=== PATIENT | male | born 1945 ===

== ENCOUNTER 2021-06-12 17:45 | Inpatient (IN) | payer MEDICARE ==
[2021-06-13 01:16] LABS: Hepatitis B Surface Antigen Non-Reactive (Negative); Hepatitis C Virus Antibody Non-Reactive (NonReactive)
[2021-06-13 01:34] LABS: Basophils % (Auto) 0.5 % (0.0-1.8); Eosinophils # (Auto) 0.1 K/mm3 (0.0-0.4); Eosinophils % (Auto) 1.4 % (0.0-4.3); Hematocrit 30.3 % (35.5-45.6); Hemoglobin 9.8 gm/dl (11.8-15.2); Lymphocytes # (Auto) 1.2 K/mm3 (1.2-5.4); Lymphocytes % (Auto) 27.4 % (13.4-35.0); Mean Corpuscular HGB Conc 32 % (32-34); Mean Corpuscular Volume 98 fl (84-94); Monocytes # (Auto) 0.4 K/mm3 (0.0-0.8); Monocytes % (Auto) 9.4 % (0.0-7.3); Platelet Count 269 K/mm3 (140-440); Red Blood Count 3.08 M/mm3 (3.65-5.03); Red Cell Distribution Width 16.4 % (13.2-15.2)
[2021-06-13 01:41] LABS: Alanine Aminotransferase 29 units/L (7-56); Albumin 3.4 g/dL (3.9-5); Blood Urea Nitrogen 22 mg/dL (9-20); Calcium 8.6 mg/dL (8.4-10.2); Hemolysis Index 2
[2021-06-13 01:59] LABS: BUN/Creatinine Ratio 31
[2021-06-13 03:55] LABS: Chol/HDL Ratio 2.52 %; HDL Cholesterol 65 mg/dL (40-59); LDL Cholesterol,Direct 93 mg/dL (50-130)
--- NOTE | 2021-06-13 09:01 | Consultation ---
History of Present Illness - Reason for Consult Consult date: 06/13/21 anemia Requesting physician: YUNIOR SALINAS - History of Present Illness Patient is a 76-year-old male with history of dementia unspecified, CAD status post CABG x4, essential hypertension, insomnia currently admitted to the [facility] unit for increased agitation and combativeness was referred by his family as confused with poor insight patient rambling with flight of ideas and difficult to redirect. He was noted to have anemia on admission and were requested to evaluate for further management. Earlier this year was noted to have HILLARY which has since resolved. Past History Past Medical History: CAD, hypertension, hyperlipidemia Past Surgical History: CABG (X4) Social history: lives with family, full code Family history: cancer (PROSTATE AND COLON, ALSO BREAST) Medications and Allergies Allergies Allergy/AdvReac Type Severity Reaction Status Date / Time morphine Allergy Unknown Verified 06/12/21 22:36 Home Medications Medication Instructions Recorded Confirmed Last Taken Type Aspirin EC [Halfprin EC] 81 mg PO QDAY 06/12/21 06/12/21 Unknown History Cholecalciferol Vit D3 [Vitamin D3 4,000 unit PO QDAY 06/12/21 06/12/21 Unknown History 1,000 UNIT TAB] Clopidogrel [Plavix] 75 mg PO QDAY 06/12/21 06/12/21 Unknown History Memantine [Namenda] 5 mg PO BID 06/12/21 06/12/21 Unknown History Mirtazapine [Remeron] 15 mg PO HS 06/12/21 06/12/21 Unknown History QUEtiapine [SEROquel] 100 mg PO HS 06/12/21 06/12/21 Unknown History Quetiapine Fumarate [SEROquel] 50 mg PO QDAY 06/12/21 06/12/21 Unknown History donepeziL [Aricept] 10 mg PO HS 06/12/21 06/12/21 Unknown History Review of Systems All systems: negative Psychiatric: insomnia, disorientation, confusion Exam - Physical Exam Narrative exam: VITAL SIGNS: Reviewed. GENERAL: The patient appears normally developed, Vital signs as documented. HEAD: No signs of head trauma. EYES: Pupils are equal. Extraocular motions intact. EARS: Hearing grossly intact. MOUTH: Oropharynx is normal. NECK: No adenopathy, no JVD. CHEST: Chest with clear breath sounds bilaterally. No wheezes, rales, or rhonchi. CARDIAC: Regular rate and rhythm. S1 and S2, without murmurs, gallops, or rubs. VASCULAR: No Edema. Peripheral pulses normal and equal in all extremities. ABDOMEN: Soft, non tender and non distended. No rebound or guarding, and no masses palpated. Bowel Sounds normal. MUSCULOSKELETAL: Good range of motion of all major joints. Extremities without clubbing, cyanosis or edema. NEUROLOGIC EXAM: Alert and oriented x 1 No focal sensory or strength deficits. Speech normal but pressured. Follows some commands. PSYCHIATRIC: Mood elevated with Tangectile thought process and vocalization. SKIN: detail exam as documented in skin assessment - Constitutional Vitals: Temp Pulse Resp BP Pulse Ox 97.7 F 63 20 125/65 97 06/12/21 21:04 06/12/21 21:04 06/12/21 21:04 06/12/21 21:04 06/12/21 21:04 Results - Labs CBC & Chem 7: 06/12/21 23:42 06/12/21 23:42 Labs: Abnormal lab results 06/12/21 06/12/21 Range/Units 23:42 23:42 RBC 3.08 L (3.65-5.03) M/mm3 Hgb 9.8 L (11.8-15.2) gm/dl Hct 30.3 L (35.5-45.6) % MCV 98 H (84-94) fl RDW 16.4 H (13.2-15.2) % [place] % (Auto) 9.4 H (0.0-7.3) % BUN 22 H (9-20) mg/dL Creatinine 0.7 L (0.8-1.3) mg/dL Albumin 3.4 L (3.9-5) g/dL HDL Cholesterol 65 H (40-59) mg/dL Assessment and Plan Patient is a 76-year-old male with history of dementia unspecified, CAD status post CABG x4, essential hypertension, insomnia currently admitted to the [facility] unit for increased agitation and combativeness was referred by his family as confused with poor insight patient rambling with flight of ideas and difficult to redirect. He was noted to have anemia on admission and were requested to evaluate for further management. Earlier this year was noted to have HILLARY which has since resolved. On admission he denies any chest pain nausea vomiting or diarrhea he denies any black tarry stools. He also earlier this year tested positive for COVID-19 but is not at this time requiring any oxygenation. I am not aware of what ever treatment was provided for him at the time. Labs done in April shows a mildly elevated proBNP with score of 804.5 Dementia with behavioral disorder Anemia likely of chronic disease CAD status post CABG Hypertension Insomnia Recent diagnosis of COVID-19 currently not symptomatic Plan Continue supportive care. Patient is on aspirin and Plavix secondary to history of CAD we will continue to monitor hemoglobin intermittently during hospitalization. Monitor for any GI bleed evidenced by gross bleed or black tarry stool. Continue appropriate home medications Behavioral disturbance management per psych Thank you for letting us take part in the care of your patient will follow intermittently while patient is here.
--- NOTE | 2021-06-13 10:25 | History and Physical Report ---
GP History & Physical - History of Present Illness Date of admission: 06/12/21 Date of Examination: 06/13/21 Reason for Admission: Failure of Outpatient Treatment, Severe anxiety/depression, Unable to care for self History of Present Illness: The patient was seen today. He was admitted to [facility] for increase in agitation and combativeness. During my evaluation the patient is confused. He has poor insight. He is pacing and rambling. He is having flight of ideas. He is difficult to redirect. He is talking about the nurse who just left the room. He then says "I want to you, can you write your name on this paper." He says he lives with three other people. The patient then starts talking about people who have been down on the corner earlier. PAST PSYCHIATRIC HISTORY: unable to assess PAST MEDICAL HISTORY: unable to assess Family Psychiatric History: None reported or documented SOCIAL HISTORY Unable to assess REVIEW OF SYSTEMS Constitutional: Negative for weight loss ENT: Negative for stridor Respiratory: Negative for cough or hemoptysis All other systems reviewed and are negative MENTAL STATUS EXAMINATION Unable to assess Assessment (1)Dementia with Behavioral Disturbance Current Visit: Yes Status: Acute Treatment Plan Patient admitted for inpatient psychiatric evaluation, medication adjustment and close monitoring The patient's behavior, mood, sleep and appetite will be closely monitored. Patient enrolled in individual and group therapeutic sessions and encouraged to attend. Patient provided with a safe and structured environment. Patient's physical health needs will be addressed by the Hospitalist. Hospitalist Consulted Labs including CBC, CMP, Lipid profile and Hemoglobin A1C levels ordered for baseline reference Social Assessment will be completed and the Java Manager will work with patient and family to ensure a suitable and safe disposition Medication adjustment will be made as clinically indicated Start Klonopin 0.25mg po BID Start Geodon 10mg IM q6h agitation Restarted home meds Usual Wellness Congregational/Preservation: - Start Trazodone 50 mg po QHS & 50 mg po QHS PRN between 10 PM & 2 AM for insomnia - Start Melatonin 5 mg po QHS to promote circadian rhythm The patient agreed on the treatment plan, understood the risk, benefit, alternative treatment, potential consequence of no treatment, and gave informed consent. Estimated days: 7 Post hospital care: primary care provider, psychiatric provider Case staffed with Dr. Carrion Legal Status: Voluntary Reaction to Hospitalization: Accepting Medications and Allergies Allergies Allergy/AdvReac Type Severity Reaction Status Date / Time morphine Allergy Unknown Verified 06/12/21 22:36 Home Medications Medication Instructions Recorded Confirmed Last Taken Type Aspirin EC [Halfprin EC] 81 mg PO QDAY 06/12/21 06/12/21 Unknown History Cholecalciferol Vit D3 [Vitamin D3 4,000 unit PO QDAY 06/12/21 06/12/21 Unknown History 1,000 UNIT TAB] Clopidogrel [Plavix] 75 mg PO QDAY 06/12/21 06/12/21 Unknown History Memantine [Namenda] 5 mg PO BID 06/12/21 06/12/21 Unknown History Mirtazapine [Remeron] 15 mg PO HS 06/12/21 06/12/21 Unknown History QUEtiapine [SEROquel] 100 mg PO HS 06/12/21 06/12/21 Unknown History Quetiapine Fumarate [SEROquel] 50 mg PO QDAY 06/12/21 06/12/21 Unknown History donepeziL [Aricept] 10 mg PO HS 06/12/21 06/12/21 Unknown History Active Meds: Active Medications Aspirin (Aspirin Ec 81 Mg Tab) 81 mg PO QDAY [facility] Cholecalciferol (Cholecalciferol (Vit D3) 1000 Unit (25 Mcg) Tab) 4,000 unit PO QDAY [facility] Clonazepam (Clonazepam 0.5 Mg Tab) 0.25 mg PO BID [facility] Clopidogrel Bisulfate (Clopidogrel 75 Mg Tab) 75 mg PO QDAY [facility] Donepezil HCl (Donepezil 10 Mg Tab) 10 mg PO HS [facility] Memantine (Memantine 5 Mg Tab) 5 mg PO BID [facility] Mirtazapine (Mirtazapine 15 Mg Tab) 15 mg PO HS [facility] Miscellaneous Medication (Quetiapine Fumarate [Seroquel]) 50 mg PO QDAY [facility] Quetiapine Fumarate (Quetiapine 100 Mg Tab) 100 mg PO HS [facility] Ziprasidone (Ziprasidone Mesylate 20 Mg Vial) 10 mg IM Q6H PRN PRN Reason: Agitation Results - Results Labs/Vitals: Laboratory Last Values WBC 4.6 K/mm3 (4.5-11.0) 06/12/21 23:42 RBC 3.08 M/mm3 (3.65-5.03) L 06/12/21 23:42 Hgb 9.8 gm/dl (11.8-15.2) L 06/12/21 23:42 Hct 30.3 % (35.5-45.6) L 06/12/21 23:42 MCV 98 fl (84-94) H 06/12/21 23:42 MCH 32 pg (28-32) 06/12/21 23:42 MCHC 32 % (32-34) 06/12/21 23:42 RDW 16.4 % (13.2-15.2) H 06/12/21 23:42 Plt Count 269 K/mm3 (140-440) 06/12/21 23:42 Lymph % (Auto) 27.4 % (13.4-35.0) 06/12/21 23:42 [place] % (Auto) 9.4 % (0.0-7.3) H 06/12/21 23:42 Eos % (Auto) 1.4 % (0.0-4.3) 06/12/21 23:42 Baso % (Auto) 0.5 % (0.0-1.8) 06/12/21 23:42 Lymph # (Auto) 1.2 K/mm3 (1.2-5.4) 06/12/21 23:42 [place] # (Auto) 0.4 K/mm3 (0.0-0.8) 06/12/21 23:42 Eos # (Auto) 0.1 K/mm3 (0.0-0.4) 06/12/21 23:42 Baso # (Auto) 0.0 K/mm3 (0.0-0.1) 06/12/21 23:42 Seg Neutrophils % 61.3 % (40.0-70.0) 06/12/21 23:42 Seg Neutrophils # 2.8 K/mm3 (1.8-7.7) 06/12/21 23:42 Sodium 138 mmol/L (137-145) 06/12/21 23:42 Potassium 4.2 mmol/L (3.6-5.0) 06/12/21 23:42 Chloride 103.5 mmol/L (98-107) 06/12/21 23:42 Carbon Dioxide 27 mmol/L (22-30) 06/12/21 23:42 Anion Gap 12 mmol/L 06/12/21 23:42 BUN 22 mg/dL (9-20) H 06/12/21 23:42 Creatinine 0.7 mg/dL (0.8-1.3) L 06/12/21 23:42 Estimated GFR > 60 ml/min 06/12/21 23:42 BUN/Creatinine Ratio 31 % 06/12/21 23:42 Glucose 95 mg/dL (75-100) 06/12/21 23:42 Hemoglobin A1c 5.6 % (4-6) 06/12/21 23:42 Calcium 8.6 mg/dL (8.4-10.2) 06/12/21 23:42 Total Bilirubin 0.20 mg/dL (0.1-1.2) 06/12/21 23:42 AST 24 units/L (5-40) 06/12/21 23:42 ALT 29 units/L (7-56) 06/12/21 23:42 Alkaline Phosphatase 96 units/L (35-129) 06/12/21 23:42 Total Protein 7.5 g/dL (6.3-8.2) 06/12/21 23:42 Albumin 3.4 g/dL (3.9-5) L 06/12/21 23:42 Albumin/Globulin Ratio 0.8 % 06/12/21 23:42 Triglycerides 50 mg/dL (2-149) 06/12/21 23:42 Cholesterol 164 mg/dL (50-199) 06/12/21 23:42 LDL Cholesterol Direct 93 mg/dL (50-130) 06/12/21 23:42 HDL Cholesterol 65 mg/dL (40-59) H 06/12/21 23:42 Cholesterol/HDL Ratio 2.52 % 06/12/21 23:42 TSH 2.150 mlU/mL (0.270-4.200) 06/12/21 23:42 Hepatitis A IgM Ab Non-reactive (NonReactive) 06/12/21 23: Hep Bs Antigen Non-reactive (Negative) 06/12/21 23: Hep B Core IgM Ab Non-reactive (NonReactive) 06/12/21 23:42 Hepatitis C Antibody Non-reactive (NonReactive) 06/12/21 23:42 Last Vital Signs Temp 97.7 F 06/12/21 21:04 Pulse 63 06/12/21 21:04 Resp 20 06/12/21 21:04 BP 125/65 06/12/21 21:04 Pulse Ox 97 06/12/21 21:04 Physical Examination - Constitutional Vitals: Vital Signs Temp Pulse Resp BP Pulse Ox 97.7 F 63 20 125/65 97 06/12/21 21:04 06/12/21 21:04 06/12/21 21:04 06/12/21 21:04 06/12/21 21:04 Temperature -Last 24 Hours Temperature 97.7 F Mental Status Exam - Vital signs Last Vital Signs Temp 97.7 F 06/12/21 21:04 Pulse 63 06/12/21 21:04 Resp 20 06/12/21 21:04 BP 125/65 06/12/21 21:04 Pulse Ox 97 06/12/21 21:04 Physician Certification - Certification Statement Physician Certification Statement: This is an acknowledgement statement that MINOR ELLIOTT is a 76 year old M who requires inpatient psychiatric admission for treatment which could reasonably be expected to improve the patient's condition for Estimated period of time patient will need to remain in the hospital: [ ] Plan for post-hospital care: [ ]
[2021-06-13] MEDS ORDERED: NON-FORMULARY EACH (Quetiapine Fumarate [Seroquel] 50 MG Tablet) PO SCH (10:30)
[2021-06-13] MEDS: ASPIRIN EC 81 MG TAB PO SCH (10:39)
[2021-06-13] MEDS: CHOLECALCIFEROL (VIT D3) 1000 UNIT (25 mcg) TAB PO SCH (10:39)
[2021-06-13] MEDS: CLOPIDOGREL 75 MG TAB PO SCH (10:39)
[2021-06-13] MEDS: MEMANTINE 5 MG TAB PO SCH ×2 (10:39→21:57)
[2021-06-13] MEDS: clonazePAM 0.5 MG TAB PO SCH ×2 (11:06→21:55)
[2021-06-13] MEDS ORDERED: QUEtiapine 25 MG TAB PO SCH (12:00)
[2021-06-13] MEDS: DONEPEZIL 10 MG TAB PO SCH (21:55)
[2021-06-13] MEDS: MIRTAZAPINE 15 MG TAB PO SCH (21:57)
[2021-06-13] MEDS ORDERED: QUEtiapine 100 MG TAB PO SCH (22:00)
--- NOTE | 2021-06-14 09:33 | Progress Note ---
Subjective Date of service: 06/14/21 Principal diagnosis: Dementia with Behavioral Disturbance Subjective Comment: The patient was seen today. He is anxious, pacing and confused. He is rambling and difficult to follow. The patient is difficult to redirect. He is at times banging on the windows and doors. REVIEW OF SYSTEMS Constitutional: Negative for weight loss ENT: Negative for stridor Respiratory: Negative for cough or hemoptysis All other systems reviewed and are negative MENTAL STATUS EXAMINATION Unable to assess Assessment (1)Dementia with Behavioral Disturbance Current Visit: Yes Status: Acute Treatment Plan Patient admitted for inpatient psychiatric evaluation, medication adjustment and close monitoring The patient's behavior, mood, sleep and appetite will be closely monitored. Patient enrolled in individual and group therapeutic sessions and encouraged to attend. Patient provided with a safe and structured environment. Patient's physical health needs will be addressed by the Hospitalist. Hospitalist Consulted Labs including CBC, CMP, Lipid profile and Hemoglobin A1C levels ordered for baseline reference Social Assessment will be completed and the Sales Promotion Representative will work with patient and family to ensure a suitable and safe disposition Medication adjustment will be made as clinically indicated Start Klonopin 0.25mg po BID x 3 days yesterday Continue Geodon 10mg IM q6h agitation Increase Seroquel 100mg po BID Start Valproic acid 125mg po BID Usual Wellness Muslim/Preservation: - Start Trazodone 50 mg po QHS & 50 mg po QHS PRN between 10 PM & 2 AM for insomnia - Start Melatonin 5 mg po QHS to promote circadian rhythm The patient agreed on the treatment plan, understood the risk, benefit, alternative treatment, potential consequence of no treatment, and gave informed consent. Estimated days: 7 Post hospital care: primary care provider, psychiatric provider Case staffed with Dr. Carrion Medications and Allergies Allergies Allergy/AdvReac Type Severity Reaction Status Date / Time morphine Allergy Unknown Verified 06/12/21 22:36 Home Medications Medication Instructions Recorded Confirmed Last Taken Type Aspirin EC [Halfprin EC] 81 mg PO QDAY 06/12/21 06/12/21 Unknown History Cholecalciferol Vit D3 [Vitamin D3 4,000 unit PO QDAY 06/12/21 06/12/21 Unknown History 1,000 UNIT TAB] Clopidogrel [Plavix] 75 mg PO QDAY 06/12/21 06/12/21 Unknown History Memantine [Namenda] 5 mg PO BID 06/12/21 06/12/21 Unknown History Mirtazapine [Remeron] 15 mg PO HS 06/12/21 06/12/21 Unknown History QUEtiapine [SEROquel] 100 mg PO HS 06/12/21 06/12/21 Unknown History Quetiapine Fumarate [SEROquel] 50 mg PO QDAY 06/12/21 06/12/21 Unknown History donepeziL [Aricept] 10 mg PO HS 06/12/21 06/12/21 Unknown History Active Meds: Active Medications Aspirin (Aspirin Ec 81 Mg Tab) 81 mg PO QDAY [facility] Last Admin: 06/13/21 10:39 Dose: 81 mg Cholecalciferol (Cholecalciferol (Vit D3) 1000 Unit (25 Mcg) Tab) 4,000 unit PO QDAY [facility] Last Admin: 06/13/21 10:39 Dose: 4,000 unit Clonazepam (Clonazepam 0.5 Mg Tab) 0.25 mg PO BID [facility] Last Admin: 06/13/21 21:55 Dose: 0.25 mg Clopidogrel Bisulfate (Clopidogrel 75 Mg Tab) 75 mg PO QDAY [facility] Last Admin: 06/13/21 10:39 Dose: 75 mg Donepezil HCl (Donepezil 10 Mg Tab) 10 mg PO [facility] Last Admin: 06/13/21 21:55 Dose: 10 mg Memantine (Memantine 5 Mg Tab) 5 mg PO BID [facility] Last Admin: 06/13/21 21:57 Dose: 5 mg Mirtazapine (Mirtazapine 15 Mg Tab) 15 mg PO [facility] Last Admin: 06/13/21 21:57 Dose: 15 mg Quetiapine Fumarate (Quetiapine 100 Mg Tab) 100 mg PO [facility] Last Admin: 06/13/21 21:57 Dose: 100 mg Quetiapine Fumarate (Quetiapine 25 Mg Tab) 50 mg PO DAILY [facility] Last Admin: 06/13/21 11:09 Dose: 50 mg Ziprasidone (Ziprasidone Mesylate 20 Mg Vial) 10 mg IM Q6H PRN PRN Reason: Agitation Results - Results Labs/Vitals: Laboratory Last Values WBC 4.6 K/mm3 (4.5-11.0) 06/12/21 23:42 RBC 3.08 M/mm3 (3.65-5.03) L 06/12/21 23:42 Hgb 9.8 gm/dl (11.8-15.2) L 06/12/21 23:42 Hct 30.3 % (35.5-45.6) L 06/12/21 23:42 MCV 98 fl (84-94) H 06/12/21 23:42 MCH 32 pg (28-32) 06/12/21 23:42 MCHC 32 % (32-34) 06/12/21 23:42 RDW 16.4 % (13.2-15.2) H 06/12/21 23:42 Plt Count 269 K/mm3 (140-440) 06/12/21 23:42 Lymph % (Auto) 27.4 % (13.4-35.0) 06/12/21 23:42 [place] % (Auto) 9.4 % (0.0-7.3) H 06/12/21 23:42 Eos % (Auto) 1.4 % (0.0-4.3) 06/12/21 23: Baso % (Auto) 0.5 % (0.0-1.8) 06/12/21 23:42 Lymph # (Auto) 1.2 K/mm3 (1.2-5.4) 06/12/21 23:42 [place] # (Auto) 0.4 K/mm3 (0.0-0.8) 06/12/21 23: Eos # (Auto) 0.1 K/mm3 (0.0-0.4) 06/12/21 23: Baso # (Auto) 0.0 K/mm3 (0.0-0.1) 06/12/21 23: Seg Neutrophils % 61.3 % (40.0-70.0) 06/12/21 23: Seg Neutrophils # 2.8 K/mm3 (1.8-7.7) 06/12/21 23:42 Sodium 138 mmol/L (137-145) 06/12/21 23:42 Potassium 4.2 mmol/L (3.6-5.0) 06/12/21 23:42 Chloride 103.5 mmol/L (98-107) 06/12/21 23: Carbon Dioxide 27 mmol/L (22-30) 06/12/21 23:42 Anion Gap 12 mmol/L 06/12/21 23:42 BUN 22 mg/dL (9-20) H 06/12/21 23:42 Creatinine 0.7 mg/dL (0.8-1.3) L 06/12/21 23:42 Estimated GFR > 60 ml/min 06/12/21 23:42 BUN/Creatinine Ratio 31 % 06/12/21 23:42 Glucose 95 mg/dL (75-100) 06/12/21 23:42 Hemoglobin A1c 5.6 % (4-6) 06/12/21 23:42 Calcium 8.6 mg/dL (8.4-10.2) 06/12/21 23:42 Total Bilirubin 0.20 mg/dL (0.1-1.2) 06/12/21 23:42 AST 24 units/L (5-40) 06/12/21 23:42 ALT 29 units/L (7-56) 06/12/21 23:42 Alkaline Phosphatase 96 units/L (35-129) 06/12/21 23:42 Total Protein 7.5 g/dL (6.3-8.2) 06/12/21 23:42 Albumin 3.4 g/dL (3.9-5) L 06/12/21 23:42 Albumin/Globulin Ratio 0.8 % 06/12/21 23:42 Triglycerides 50 mg/dL (2-149) 06/12/21 23:42 Cholesterol 164 mg/dL (50-199) 06/12/21 23:42 LDL Cholesterol Direct 93 mg/dL (50-130) 06/12/21 23:42 HDL Cholesterol 65 mg/dL (40-59) H 06/12/21 23:42 Cholesterol/HDL Ratio 2.52 % 06/12/21 23:42 TSH 2.150 mlU/mL (0.270-4.200) 06/12/21 23:42 Hepatitis A IgM Ab Non-reactive (NonReactive) 06/12/21 23: Hep Bs Antigen Non-reactive (Negative) 06/12/21 23: Hep B Core IgM Ab Non-reactive (NonReactive) 06/12/21 23:42 Hepatitis C Antibody Non-reactive (NonReactive) 06/12/21 23:42 Last Vital Signs Temp 98.0 F 06/13/21 09:29 Pulse 119 H 06/13/21 09:29 Resp 18 02/15/22 09:29 BP 123/70 06/13/21 09:29 Pulse Ox 96 06/13/21 09:29
[2021-06-14] MEDS: ASPIRIN EC 81 MG TAB PO SCH (09:48)
[2021-06-14] MEDS: VALPROIC ACID 250 MG/5 ML ORAL LIQD PO SCH ×2 (09:48→21:03)
[2021-06-14] MEDS: MEMANTINE 5 MG TAB PO SCH ×2 (09:48→21:04)
[2021-06-14] MEDS: clonazePAM 0.5 MG TAB PO SCH ×2 (09:49→21:04)
[2021-06-14] MEDS: CLOPIDOGREL 75 MG TAB PO SCH (09:49)
[2021-06-14] MEDS: CHOLECALCIFEROL (VIT D3) 1000 UNIT (25 mcg) TAB PO SCH (09:50)
[2021-06-14] MEDS: QUEtiapine 100 MG TAB PO SCH ×2 (09:50→21:05)
[2021-06-14] MEDS: DONEPEZIL 10 MG TAB PO SCH (21:03)
[2021-06-14] MEDS ORDERED: WATER FOR INJ Sterile (PF) 10 ML ONE (21:03)
[2021-06-14] MEDS: MIRTAZAPINE 15 MG TAB PO SCH (21:05)
[2021-06-14] MEDS: ZIPRASIDONE MESYLATE 20 MG VIAL IM PRN (21:57)
--- NOTE | 2021-06-15 09:53 | Progress Note ---
Subjective Date of service: 06/15/21 Principal diagnosis: Dementia with Behavioral Disturbance Subjective Comment: The patient was seen today. He is rambling, and talking nonsensically. He is pacing, and being intrusive. He is banging on doors to get in. REVIEW OF SYSTEMS Constitutional: Negative for weight loss ENT: Negative for stridor Respiratory: Negative for cough or hemoptysis All other systems reviewed and are negative MENTAL STATUS EXAMINATION Unable to assess Assessment (1)Dementia with Behavioral Disturbance Current Visit: Yes Status: Acute Treatment Plan Patient admitted for inpatient psychiatric evaluation, medication adjustment and close monitoring The patient's behavior, mood, sleep and appetite will be closely monitored. Patient enrolled in individual and group therapeutic sessions and encouraged to attend. Patient provided with a safe and structured environment. Patient's physical health needs will be addressed by the Hospitalist. Hospitalist Consulted Labs including CBC, CMP, Lipid profile and Hemoglobin A1C levels ordered for baseline reference Social Assessment will be completed and the Director Motion Picture will work with patient and family to ensure a suitable and safe disposition Medication adjustment will be made as clinically indicated Continue Klonopin 0.25mg po BID x 3 days Continue Geodon 10mg IM q6h agitation Continue Seroquel 100mg po BID Increase Valproic acid 125mg po TID Usual Wellness Baptism/Preservation: - Start Trazodone 50 mg po QHS & 50 mg po QHS PRN between 10 PM & 2 AM for insomnia - Start Melatonin 5 mg po QHS to promote circadian rhythm The patient agreed on the treatment plan, understood the risk, benefit, alternative treatment, potential consequence of no treatment, and gave informed consent. Estimated days: 7 Post hospital care: primary care provider, psychiatric provider Case staffed with Dr. Carrion Medications and Allergies Allergies Allergy/AdvReac Type Severity Reaction Status Date / Time morphine Allergy Unknown Verified 06/12/21 22:36 Home Medications Medication Instructions Recorded Confirmed Last Taken Type Aspirin EC [Halfprin EC] 81 mg PO QDAY 06/12/21 06/12/21 Unknown History Cholecalciferol Vit D3 [Vitamin D3 4,000 unit PO QDAY 06/12/21 06/12/21 Unknown History 1,000 UNIT TAB] Clopidogrel [Plavix] 75 mg PO QDAY 06/12/21 06/12/21 Unknown History Memantine [Namenda] 5 mg PO BID 06/12/21 06/12/21 Unknown History Mirtazapine [Remeron] 15 mg PO HS 06/12/21 06/12/21 Unknown History QUEtiapine [SEROquel] 100 mg PO HS 06/12/21 06/12/21 Unknown History Quetiapine Fumarate [SEROquel] 50 mg PO QDAY 06/12/21 06/12/21 Unknown History donepeziL [Aricept] 10 mg PO HS 06/12/21 06/12/21 Unknown History Active Meds: Active Medications Aspirin (Aspirin Ec 81 Mg Tab) 81 mg PO QDAY [facility] Last Admin: 06/14/21 09:48 Dose: 81 mg Cholecalciferol (Cholecalciferol (Vit D3) 1000 Unit (25 Mcg) Tab) 4,000 unit PO QDAY [facility] Last Admin: 06/14/21 09:50 Dose: 4,000 unit Clonazepam (Clonazepam 0.5 Mg Tab) 0.25 mg PO BID [facility] Last Admin: 06/14/21 21:04 Dose: 0.25 mg Clopidogrel Bisulfate (Clopidogrel 75 Mg Tab) 75 mg PO QDAY [facility] Last Admin: 06/14/21 09:49 Dose: 75 mg Donepezil HCl (Donepezil 10 Mg Tab) 10 mg PO [facility] Last Admin: 06/14/21 21:03 Dose: 10 mg Memantine (Memantine 5 Mg Tab) 5 mg PO BID [facility] Last Admin: 06/14/21 21:04 Dose: 5 mg Mirtazapine (Mirtazapine 15 Mg Tab) 15 mg PO [facility] Last Admin: 06/14/21 21:05 Dose: 15 mg Quetiapine Fumarate (Quetiapine 100 Mg Tab) 100 mg PO BID [facility] Last Admin: 06/14/21 21:05 Dose: 100 mg Valproic Acid (Valproic Acid 250 Mg/5 Ml Oral Liqd) 125 mg PO BID [facility] Last Admin: 06/14/21 21:03 Dose: 125 mg Ziprasidone (Ziprasidone Mesylate 20 Mg Vial) 10 mg IM Q6H PRN PRN Reason: Agitation Last Admin: 06/14/21 21:57 Dose: 10 mg Results - Results Labs/Vitals: Laboratory Last Values WBC 4.6 K/mm3 (4.5-11.0) 06/12/21 23:42 RBC 3.08 M/mm3 (3.65-5.03) L 06/12/21 23:42 Hgb 9.8 gm/dl (11.8-15.2) L 06/12/21 23:42 Hct 30.3 % (35.5-45.6) L 06/12/21 23:42 MCV 98 fl (84-94) H 06/12/21 23:42 MCH 32 pg (28-32) 06/12/21 23: MCHC 32 % (32-34) 06/12/21 23:42 RDW 16.4 % (13.2-15.2) H 06/12/21 23:42 Plt Count 269 K/mm3 (140-440) 06/12/21 23:42 Lymph % (Auto) 27.4 % (13.4-35.0) 06/12/21 23:42 [place] % (Auto) 9.4 % (0.0-7.3) H 06/12/21 23:42 Eos % (Auto) 1.4 % (0.0-4.3) 06/12/21: Baso % (Auto) 0.5 % (0.0-1.8) 06/12/21: Lymph # (Auto) 1.2 K/mm3 (1.2-5.4) 06/12/21: [place] # (Auto) 0.4 K/mm3 (0.0-0.8) 06/12/21 23: Eos # (Auto) 0.1 K/mm3 (0.0-0.4) 06/12/21: Baso # (Auto) 0.0 K/mm3 (0.0-0.1) 06/12/21 23:42 Seg Neutrophils % 61.3 % (40.0-70.0) 06/12/21 23: Seg Neutrophils # 2.8 K/mm3 (1.8-7.7) 06/12/21 23:42 Sodium 138 mmol/L (137-145) 06/12/21 23:42 Potassium 4.2 mmol/L (3.6-5.0) 06/12/21 23: Chloride 103.5 mmol/L (98-107) 06/12/21 23: Carbon Dioxide 27 mmol/L (22-30) 06/12/21 23:42 Anion Gap 12 mmol/L 06/12/21 23:42 BUN 22 mg/dL (9-20) H 06/12/21 23:42 Creatinine 0.7 mg/dL (0.8-1.3) L 06/12/21 23:42 Estimated GFR > 60 ml/min 06/12/21 23:42 BUN/Creatinine Ratio 31 % 06/12/21 23:42 Glucose 95 mg/dL (75-100) 06/12/21 23:42 Hemoglobin A1c 5.6 % (4-6) 06/12/21 23:42 Calcium 8.6 mg/dL (8.4-10.2) 06/12/21 23:42 Total Bilirubin 0.20 mg/dL (0.1-1.2) 06/12/21 23:42 AST 24 units/L (5-40) 06/12/21 23:42 ALT 29 units/L (7-56) 06/12/21 23:42 Alkaline Phosphatase 96 units/L (35-129) 06/12/21 23:42 Total Protein 7.5 g/dL (6.3-8.2) 06/12/21 23:42 Albumin 3.4 g/dL (3.9-5) L 06/12/21 23:42 Albumin/Globulin Ratio 0.8 % 06/12/21 23:42 Triglycerides 50 mg/dL (2-149) 06/12/21 23:42 Cholesterol 164 mg/dL (50-199) 06/12/21 23:42 LDL Cholesterol Direct 93 mg/dL (50-130) 06/12/21 23:42 HDL Cholesterol 65 mg/dL (40-59) H 06/12/21 23:42 Cholesterol/HDL Ratio 2.52 % 06/12/21 23:42 TSH 2.150 mlU/mL (0.270-4.200) 06/12/21 23:42 Hepatitis A IgM Ab Non-reactive (NonReactive) 06/12/21 23: Hep Bs Antigen Non-reactive (Negative) 06/12/21 23:42 Hep B Core IgM Ab Non-reactive (NonReactive) 06/12/21 23:42 Hepatitis C Antibody Non-reactive (NonReactive) 06/12/21 23:42 Last Vital Signs Temp 99.1 F 06/14/21 22:39 Pulse 93 H 06/14/21 22:39 Resp 20 06/14/21 22:39 BP 146/81 06/14/21 22:39 Pulse Ox 100 06/14/21 22:39
[2021-06-15] MEDS: MEMANTINE 5 MG TAB PO SCH ×2 (10:19→21:37)
[2021-06-15] MEDS: VALPROIC ACID 250 MG/5 ML ORAL LIQD PO SCH ×3 (10:20→21:35)
[2021-06-15] MEDS: QUEtiapine 100 MG TAB PO SCH ×2 (10:20→21:38)
[2021-06-15] MEDS: CHOLECALCIFEROL (VIT D3) 1000 UNIT (25 mcg) TAB PO SCH (10:20)
[2021-06-15] MEDS: ASPIRIN EC 81 MG TAB PO SCH (10:20)
[2021-06-15] MEDS: CLOPIDOGREL 75 MG TAB PO SCH (10:20)
[2021-06-15] MEDS: clonazePAM 0.5 MG TAB PO SCH ×2 (10:21→21:36)
[2021-06-15] MEDS: DONEPEZIL 10 MG TAB PO SCH (21:36)
[2021-06-15] MEDS: MIRTAZAPINE 15 MG TAB PO SCH (21:36)
[2021-06-16] MEDS: VALPROIC ACID 250 MG/5 ML ORAL LIQD PO SCH ×3 (07:49→21:16)
--- NOTE | 2021-06-16 08:30 | Progress Note ---
Subjective Date of service: 06/16/21 Principal diagnosis: Dementia with Behavioral Disturbance Subjective Comment: 06/16/21: The patient was seen this morning pacing the hallway. The patient is confused, defecated allover the [address]. The patient to be placed on 1:1. REVIEW OF SYSTEMS Constitutional: Negative for weight loss ENT: Negative for stridor Respiratory: Negative for cough or hemoptysis All other systems reviewed and are negative MENTAL STATUS EXAMINATION Unable to assess Assessment (1)Dementia with Behavioral Disturbance Current Visit: Yes Status: Acute Treatment Plan Patient admitted for inpatient psychiatric evaluation, medication adjustment and close monitoring The patient's behavior, mood, sleep and appetite will be closely monitored. Patient enrolled in individual and group therapeutic sessions and encouraged to attend. Patient provided with a safe and structured environment. Patient's physical health needs will be addressed by the Hospitalist. Hospitalist Consulted Labs including CBC, CMP, Lipid profile and Hemoglobin A1C levels ordered for baseline reference Social Assessment will be completed and the Hand Shoes Sewer will work with patient and family to ensure a suitable and safe disposition Medication adjustment will be made as clinically indicated Continue Klonopin 0.25mg po BID x 3 days Continue Geodon 10mg IM q6h agitation Continue Seroquel 100mg po BID Increase Valproic acid 125mg po TID Usual Wellness Rastafarian/Preservation: - Start Trazodone 50 mg po QHS & 50 mg po QHS PRN between 10 PM & 2 AM for insomnia - Start Melatonin 5 mg po QHS to promote circadian rhythm The patient agreed on the treatment plan, understood the risk, benefit, alternative treatment, potential consequence of no treatment, and gave informed consent. Estimated days: 3 Post hospital care: primary care provider, psychiatric provider Case staffed with Dr. Carrion Medications and Allergies Medications and Allergies Allergies Allergy/AdvReac Type Severity Reaction Status Date / Time morphine Allergy Unknown Verified 06/12/21 22:36 Home Medications Medication Instructions Recorded Confirmed Last Taken Type Aspirin EC [Halfprin EC] 81 mg PO QDAY 06/12/21 06/12/21 Unknown History Cholecalciferol Vit D3 [Vitamin D3 4,000 unit PO QDAY 06/12/21 06/12/21 Unknown History 1,000 UNIT TAB] Clopidogrel [Plavix] 75 mg PO QDAY 06/12/21 06/12/21 Unknown History Memantine [Namenda] 5 mg PO BID 06/12/21 06/12/21 Unknown History Mirtazapine [Remeron] 15 mg PO 06/12/21 06/12/21 Unknown History QUEtiapine [SEROquel] 100 mg PO HS 06/12/21 06/12/21 Unknown History Quetiapine Fumarate [SEROquel] 50 mg PO QDAY 06/12/21 06/12/21 Unknown History donepeziL [Aricept] 10 mg PO HS 06/12/21 06/12/21 Unknown History Active Meds: Active Medications Aspirin (Aspirin Ec 81 Mg Tab) 81 mg PO QDAY [facility] Last Admin: 06/15/21 10:20 Dose: 81 mg Cholecalciferol (Cholecalciferol (Vit D3) 1000 Unit (25 Mcg) Tab) 4,000 unit PO QDAY [facility] Last Admin: 06/15/21 10:20 Dose: 4,000 unit Clonazepam (Clonazepam 0.5 Mg Tab) 0.25 mg PO BID [facility] Last Admin: 06/15/21 21:36 Dose: 0.25 mg Clopidogrel Bisulfate (Clopidogrel 75 Mg Tab) 75 mg PO QDAY [facility] Last Admin: 06/15/21 10:20 Dose: 75 mg Donepezil HCl (Donepezil 10 Mg Tab) 10 mg PO [facility] Last Admin: 06/15/21 21:36 Dose: 10 mg Memantine (Memantine 5 Mg Tab) 5 mg PO BID [facility] Last Admin: 06/15/21 21:37 Dose: 5 mg Mirtazapine (Mirtazapine 15 Mg Tab) 15 mg PO [facility] Last Admin: 06/15/21 21:36 Dose: 15 mg Quetiapine Fumarate (Quetiapine 100 Mg Tab) 100 mg PO BID [facility] Last Admin: 06/15/21 21:38 Dose: 100 mg Valproic Acid (Valproic Acid 250 Mg/5 Ml Oral Liqd) 125 mg PO TID [facility] Last Admin: 06/16/21 07:49 Dose: 125 mg Ziprasidone (Ziprasidone Mesylate 20 Mg Vial) 10 mg IM Q6H PRN PRN Reason: Agitation Last Admin: 06/14/21 21:57 Dose: 10 mg Results - Results Labs/Vitals: Laboratory Last Values WBC 4.6 K/mm3 (4.5-11.0) 06/12/21 23:42 RBC 3.08 M/mm3 (3.65-5.03) L 06/12/21 23:42 Hgb 9.8 gm/dl (11.8-15.2) L 06/12/21 23:42 Hct 30.3 % (35.5-45.6) L 06/12/21 23:42 MCV 98 fl (84-94) H 06/12/21 23:42 MCH 32 pg (28-32) 06/12/21 23: MCHC 32 % (32-34) 06/12/21 23:42 RDW 16.4 % (13.2-15.2) H 06/12/21 23:42 Plt Count 269 K/mm3 (140-440) 06/12/21 23:42 Lymph % (Auto) 27.4 % (13.4-35.0) 06/12/21 23:42 [place] % (Auto) 9.4 % (0.0-7.3) H 06/12/21 23: Eos % (Auto) 1.4 % (0.0-4.3) 06/12/21 23: Baso % (Auto) 0.5 % (0.0-1.8) 06/12/21 23:42 Lymph # (Auto) 1.2 K/mm3 (1.2-5.4) 06/12/21: [place] # (Auto) 0.4 K/mm3 (0.0-0.8) 06/12/21 23: Eos # (Auto) 0.1 K/mm3 (0.0-0.4) 06/12/21: Baso # (Auto) 0.0 K/mm3 (0.0-0.1) 06/12/21 23: Seg Neutrophils % 61.3 % (40.0-70.0) 06/12/21 23: Seg Neutrophils # 2.8 K/mm3 (1.8-7.7) 06/12/21 23: Sodium 138 mmol/L (137-145) 06/12/21 23:42 Potassium 4.2 mmol/L (3.6-5.0) 06/12/21 23: Chloride 103.5 mmol/L (98-107) 06/12/21 23: Carbon Dioxide 27 mmol/L (22-30) 06/12/21 23:42 Anion Gap 12 mmol/L 06/12/21 23:42 BUN 22 mg/dL (9-20) H 06/12/21 23:42 Creatinine 0.7 mg/dL (0.8-1.3) L 06/12/21 23:42 Estimated GFR > 60 ml/min 06/12/21 23:42 BUN/Creatinine Ratio 31 % 06/12/21 23:42 Glucose 95 mg/dL (75-100) 06/12/21 23:42 Hemoglobin A1c 5.6 % (4-6) 06/12/21 23:42 Calcium 8.6 mg/dL (8.4-10.2) 06/12/21 23:42 Total Bilirubin 0.20 mg/dL (0.1-1.2) 06/12/21 23:42 AST 24 units/L (5-40) 06/12/21 23:42 ALT 29 units/L (7-56) 06/12/21 23:42 Alkaline Phosphatase 96 units/L (35-129) 06/12/21 23:42 Total Protein 7.5 g/dL (6.3-8.2) 06/12/21 23:42 Albumin 3.4 g/dL (3.9-5) L 06/12/21 23:42 Albumin/Globulin Ratio 0.8 % 06/12/21 23:42 Triglycerides 50 mg/dL (2-149) 06/12/21 23:42 Cholesterol 164 mg/dL (50-199) 06/12/21 23:42 LDL Cholesterol Direct 93 mg/dL (50-130) 06/12/21 23:42 HDL Cholesterol 65 mg/dL (40-59) H 06/12/21 23:42 Cholesterol/HDL Ratio 2.52 % 06/12/21 23:42 TSH 2.150 mlU/mL (0.270-4.200) 06/12/21 23:42 Hepatitis A IgM Ab Non-reactive (NonReactive) 06/12/21 23:42 Hep Bs Antigen Non-reactive (Negative) 06/12/21 23:42 Hep B Core IgM Ab Non-reactive (NonReactive) 06/12/21 23:42 Hepatitis C Antibody Non-reactive (NonReactive) 06/12/21 23:42 Last Vital Signs Temp 98.4 F 06/15/21 19:37 Pulse 100 H 06/15/21 19:37 Resp 17 06/15/21 19:37 BP 126/68 06/15/21 19:37 Pulse Ox 94 06/15/21 19:37
[2021-06-16] MEDS: CLOPIDOGREL 75 MG TAB PO SCH (09:57)
[2021-06-16] MEDS: CHOLECALCIFEROL (VIT D3) 1000 UNIT (25 mcg) TAB PO SCH (09:57)
[2021-06-16] MEDS: MEMANTINE 5 MG TAB PO SCH ×2 (09:57→21:18)
[2021-06-16] MEDS: clonazePAM 0.5 MG TAB PO SCH ×2 (09:58→21:17)
[2021-06-16] MEDS: ASPIRIN EC 81 MG TAB PO SCH (09:58)
[2021-06-16] MEDS: QUEtiapine 100 MG TAB PO SCH ×2 (09:58→21:18)
[2021-06-16] MEDS: DONEPEZIL 10 MG TAB PO SCH (21:17)
[2021-06-16] MEDS: MIRTAZAPINE 15 MG TAB PO SCH (21:18)
[2021-06-17] MEDS: ZIPRASIDONE MESYLATE 20 MG VIAL IM PRN (00:11)
[2021-06-17] MEDS ORDERED: ZIPRASIDONE MESYLATE 20 MG VIAL IM PRN (08:30)
[2021-06-17] MEDS: CHOLECALCIFEROL (VIT D3) 1000 UNIT (25 mcg) TAB PO SCH (09:12)
[2021-06-17] MEDS: ASPIRIN EC 81 MG TAB PO SCH (09:12)
[2021-06-17] MEDS: VALPROIC ACID 250 MG/5 ML ORAL LIQD PO SCH ×3 (09:12→20:55)
[2021-06-17] MEDS: clonazePAM 0.5 MG TAB PO SCH ×3 (09:12→22:05)
[2021-06-17] MEDS: CLOPIDOGREL 75 MG TAB PO SCH (09:12)
[2021-06-17] MEDS: QUEtiapine 100 MG TAB PO SCH ×3 (09:13→22:04)
[2021-06-17] MEDS: MEMANTINE 5 MG TAB PO SCH ×2 (09:13→22:12)
--- NOTE | 2021-06-17 09:43 | Progress Note ---
Subjective Date of service: 06/17/21 Principal diagnosis: Dementia with Behavioral Disturbance Subjective Comment: 06/16/21: The patient was seen this morning pacing the hallway. The patient is confused, defecated allover the [address]. The patient to be placed on 1:1. 06/17/21: The patient was seen pacing. The patient is confused, banging on the windows with disorganized thoughts. REVIEW OF SYSTEMS Constitutional: Negative for weight loss ENT: Negative for stridor Respiratory: Negative for cough or hemoptysis All other systems reviewed and are negative MENTAL STATUS EXAMINATION Unable to assess Assessment (1)Dementia with Behavioral Disturbance Current Visit: Yes Status: Acute Treatment Plan Patient admitted for inpatient psychiatric evaluation, medication adjustment and close monitoring The patient's behavior, mood, sleep and appetite will be closely monitored. Patient enrolled in individual and group therapeutic sessions and encouraged to attend. Patient provided with a safe and structured environment. Patient's physical health needs will be addressed by the Hospitalist. Hospitalist Consulted Labs including CBC, CMP, Lipid profile and Hemoglobin A1C levels ordered for baseline reference Social Assessment will be completed and the Rn Telephone Triage will work with patient and family to ensure a suitable and safe disposition Medication adjustment will be made as clinically indicated Continue Klonopin 0.25mg po BID x 3 days Continue Geodon 10mg IM q6h agitation Continue Seroquel 100mg po BID Increase Valproic acid 125mg po TID Usual Wellness Yazidi/Preservation: - Start Trazodone 50 mg po QHS & 50 mg po QHS PRN between 10 PM & 2 AM for insomnia - Start Melatonin 5 mg po QHS to promote circadian rhythm The patient agreed on the treatment plan, understood the risk, benefit, alternative treatment, potential consequence of no treatment, and gave informed consent. Estimated days: 3 Post hospital care: primary care provider, psychiatric provider Case staffed with Dr. Carrion Medications and Allergies Medications and Allergies Allergies Allergy/AdvReac Type Severity Reaction Status Date / Time morphine Allergy Unknown Verified 06/12/21 22:36 Home Medications Medication Instructions Recorded Confirmed Last Taken Type Aspirin EC [Halfprin EC] 81 mg PO QDAY 06/12/21 06/12/21 Unknown History Cholecalciferol Vit D3 [Vitamin D3 4,000 unit PO QDAY 06/12/21 06/12/21 Unknown History 1,000 UNIT TAB] Clopidogrel [Plavix] 75 mg PO QDAY 06/12/21 06/12/21 Unknown History Memantine [Namenda] 5 mg PO BID 06/12/21 06/12/21 Unknown History Mirtazapine [Remeron] 15 mg PO HS 06/12/21 06/12/21 Unknown History QUEtiapine [SEROquel] 100 mg PO HS 06/12/21 06/12/21 Unknown History Quetiapine Fumarate [SEROquel] 50 mg PO QDAY 06/12/21 06/12/21 Unknown History donepeziL [Aricept] 10 mg PO HS 06/12/21 06/12/21 Unknown History Active Meds: Active Medications Aspirin (Aspirin Ec 81 Mg Tab) 81 mg PO QDAY [facility] Last Admin: 06/17/21 09:12 Dose: 81 mg Cholecalciferol (Cholecalciferol (Vit D3) 1000 Unit (25 Mcg) Tab) 4,000 unit PO QDAY [facility] Last Admin: 06/17/21 09:12 Dose: 4,000 unit Clonazepam (Clonazepam 0.5 Mg Tab) 0.25 mg PO BID [facility] Last Admin: 06/17/21 09:12 Dose: 0.25 mg Clopidogrel Bisulfate (Clopidogrel 75 Mg Tab) 75 mg PO QDAY [facility] Last Admin: 06/17/21 09:12 Dose: 75 mg Donepezil HCl (Donepezil 10 Mg Tab) 10 mg PO [facility] Last Admin: 06/16/21 21:17 Dose: 10 mg Loperamide HCl (Loperamide 2 Mg Cap) 2 mg PO Q6H PRN PRN Reason: Diarrhea Memantine (Memantine 5 Mg Tab) 5 mg PO BID [facility] Last Admin: 06/17/21 09:13 Dose: 5 mg Mirtazapine (Mirtazapine 15 Mg Tab) 15 mg PO [facility] Last Admin: 06/16/21 21:18 Dose: 15 mg Quetiapine Fumarate (Quetiapine 100 Mg Tab) 100 mg PO BID [facility] Last Admin: 06/17/21 09:13 Dose: 100 mg Valproic Acid (Valproic Acid 250 Mg/5 Ml Oral Liqd) 125 mg PO TID [facility] Last Admin: 06/17/21 09:12 Dose: 125 mg Ziprasidone (Ziprasidone Mesylate 20 Mg Vial) 20 mg IM Q4H PRN PRN Reason: Agitation Results - Results Labs/Vitals: Laboratory Last Values WBC 4.6 K/mm3 (4.5-11.0) 06/12/21 23:42 RBC 3.08 M/mm3 (3.65-5.03) L 06/12/21 23:42 Hgb 9.8 gm/dl (11.8-15.2) L 06/12/21 23:42 Hct 30.3 % (35.5-45.6) L 06/12/21 23:42 MCV 98 fl (84-94) H 06/12/21 23:42 MCH 32 pg (28-32) 06/12/21 23:42 MCHC 32 % (32-34) 06/12/21 23:42 RDW 16.4 % (13.2-15.2) H 06/12/21 23:42 Plt Count 269 K/mm3 (140-440) 06/12/21 23:42 Lymph % (Auto) 27.4 % (13.4-35.0) 06/12/21 23:42 [place] % (Auto) 9.4 % (0.0-7.3) H 06/12/21 23:42 Eos % (Auto) 1.4 % (0.0-4.3) 06/12/21 23:42 Baso % (Auto) 0.5 % (0.0-1.8) 06/12/21 23:42 Lymph # (Auto) 1.2 K/mm3 (1.2-5.4) 06/12/21 23:42 [place] # (Auto) 0.4 K/mm3 (0.0-0.8) 06/12/21 23:42 Eos # (Auto) 0.1 K/mm3 (0.0-0.4) 06/12/21 23:42 Baso # (Auto) 0.0 K/mm3 (0.0-0.1) 06/12/21 23:42 Seg Neutrophils % 61.3 % (40.0-70.0) 06/12/21 23:42 Seg Neutrophils # 2.8 K/mm3 (1.8-7.7) 06/12/21 23:42 Sodium 138 mmol/L (137-145) 06/12/21 23:42 Potassium 4.2 mmol/L (3.6-5.0) 06/12/21 23:42 Chloride 103.5 mmol/L (98-107) 06/12/21 23:42 Carbon Dioxide 27 mmol/L (22-30) 06/12/21 23:42 Anion Gap 12 mmol/L 06/12/21 23:42 BUN 22 mg/dL (9-20) H 06/12/21 23:42 Creatinine 0.7 mg/dL (0.8-1.3) L 06/12/21 23:42 Estimated GFR > 60 ml/min 06/12/21 23:42 BUN/Creatinine Ratio 31 % 06/12/21 23:42 Glucose 95 mg/dL (75-100) 06/12/21 23:42 Hemoglobin A1c 5.6 % (4-6) 06/12/21 23:42 Calcium 8.6 mg/dL (8.4-10.2) 06/12/21 23:42 Total Bilirubin 0.20 mg/dL (0.1-1.2) 06/12/21 23:42 AST 24 units/L (5-40) 06/12/21 23:42 ALT 29 units/L (7-56) 06/12/21 23:42 Alkaline Phosphatase 96 units/L (35-129) 06/12/21 23:42 Total Protein 7.5 g/dL (6.3-8.2) 06/12/21 23:42 Albumin 3.4 g/dL (3.9-5) L 06/12/21 23:42 Albumin/Globulin Ratio 0.8 % 06/12/21 23:42 Triglycerides 50 mg/dL (2-149) 06/12/21 23:42 Cholesterol 164 mg/dL (50-199) 06/12/21 23:42 LDL Cholesterol Direct 93 mg/dL (50-130) 06/12/21 23:42 HDL Cholesterol 65 mg/dL (40-59) H 06/12/21 23:42 Cholesterol/HDL Ratio 2.52 % 06/12/21 23:42 TSH 2.150 mlU/mL (0.270-4.200) 06/12/21 23:42 Hepatitis A IgM Ab Non-reactive (NonReactive) 06/12/21 23:42 Hep Bs Antigen Non-reactive (Negative) 06/12/21 23:42 Hep B Core IgM Ab Non-reactive (NonReactive) 06/12/21 23:42 Hepatitis C Antibody Non-reactive (NonReactive) 06/12/21 23:42 Last Vital Signs Temp 98.1 F 06/16/21 20:22 Pulse 109 H 06/16/21 20:22 Resp 17 06/16/21 20:22 BP 96/62 06/16/21 20:22 Pulse Ox 96 06/16/21 20:22
[2021-06-17] MEDS: DONEPEZIL 10 MG TAB PO SCH (22:04)
[2021-06-17] MEDS: MIRTAZAPINE 15 MG TAB PO SCH (22:04)
[2021-06-18] MEDS: VALPROIC ACID 250 MG/5 ML ORAL LIQD PO SCH ×3 (08:52→20:17)
--- NOTE | 2021-06-18 08:56 | Progress Note ---
Subjective Date of service: 06/18/21 Principal diagnosis: Dementia with Behavioral Disturbance Subjective Comment: 06/16/21: The patient was seen this morning pacing the hallway. The patient is confused, defecated allover the [address]. The patient to be placed on 1:1. 06/17/21: The patient was seen pacing. The patient is confused, banging on the windows with disorganized thoughts. 06/18/21: The patient was seen eating breakfast. He continues to be confused but calmer today. He is still talking to himself " I got to go get the phone and sign my name." REVIEW OF SYSTEMS Constitutional: Negative for weight loss ENT: Negative for stridor Respiratory: Negative for cough or hemoptysis All other systems reviewed and are negative MENTAL STATUS EXAMINATION Unable to assess Assessment (1)Dementia with Behavioral Disturbance Current Visit: Yes Status: Acute Treatment Plan Patient admitted for inpatient psychiatric evaluation, medication adjustment and close monitoring The patient's behavior, mood, sleep and appetite will be closely monitored. Patient enrolled in individual and group therapeutic sessions and encouraged to attend. Patient provided with a safe and structured environment. Patient's physical health needs will be addressed by the Hospitalist. Hospitalist Consulted Labs including CBC, CMP, Lipid profile and Hemoglobin A1C levels ordered for baseline reference Social Assessment will be completed and the Mobile Home Mechanic will work with patient and family to ensure a suitable and safe disposition Medication adjustment will be made as clinically indicated Continue Klonopin 0.25mg po BID x 3 days Continue Geodon 10mg IM q6h agitation Continue Seroquel 100mg po BID Increase Valproic acid 125mg po TID Usual Wellness Amish/Preservation: - Start Trazodone 50 mg po QHS & 50 mg po QHS PRN between 10 PM & 2 AM for insomnia - Start Melatonin 5 mg po QHS to promote circadian rhythm The patient agreed on the treatment plan, understood the risk, benefit, alternative treatment, potential consequence of no treatment, and gave informed consent. Estimated days: 3 Post hospital care: primary care provider, psychiatric provider Case staffed with Dr. Carrion Medications and Allergies Medications and Allergies Allergies Allergy/AdvReac Type Severity Reaction Status Date / Time morphine Allergy Unknown Verified 06/12/21 22:36 Home Medications Medication Instructions Recorded Confirmed Last Taken Type Aspirin EC [Halfprin EC] 81 mg PO QDAY 06/12/21 06/12/21 Unknown History Cholecalciferol Vit D3 [Vitamin D3 4,000 unit PO QDAY 06/12/21 06/12/21 Unknown History 1,000 UNIT TAB] Clopidogrel [Plavix] 75 mg PO QDAY 06/12/21 06/12/21 Unknown History Memantine [Namenda] 5 mg PO BID 06/12/21 06/12/21 Unknown History Mirtazapine [Remeron] 15 mg PO HS 06/12/21 06/12/21 Unknown History QUEtiapine [SEROquel] 100 mg PO HS 06/12/21 06/12/21 Unknown History Quetiapine Fumarate [SEROquel] 50 mg PO QDAY 06/12/21 06/12/21 Unknown History donepeziL [Aricept] 10 mg PO HS 06/12/21 06/12/21 Unknown History Active Meds: Active Medications Aspirin (Aspirin Ec 81 Mg Tab) 81 mg PO QDAY [facility] Last Admin: 06/17/21 09:12 Dose: 81 mg Cholecalciferol (Cholecalciferol (Vit D3) 1000 Unit (25 Mcg) Tab) 4,000 unit PO QDAY [facility] Last Admin: 06/17/21 09:12 Dose: 4,000 unit Clonazepam (Clonazepam 0.5 Mg Tab) 0.5 mg PO BID [facility] Last Admin: 06/17/21 22:05 Dose: 0.5 mg Clopidogrel Bisulfate (Clopidogrel 75 Mg Tab) 75 mg PO QDAY [facility] Last Admin: 06/17/21 09:12 Dose: 75 mg Donepezil HCl (Donepezil 10 Mg Tab) 10 mg PO [facility] Last Admin: 06/17/21 22:04 Dose: 10 mg Loperamide HCl (Loperamide 2 Mg Cap) 2 mg PO Q6H PRN PRN Reason: Diarrhea Memantine (Memantine 5 Mg Tab) 5 mg PO BID [facility] Last Admin: 06/17/21 22:12 Dose: 5 mg Mirtazapine (Mirtazapine 15 Mg Tab) 15 mg PO [facility] Last Admin: 06/17/21 22:04 Dose: 15 mg Quetiapine Fumarate (Quetiapine 100 Mg Tab) 300 mg PO QHS [facility] Last Admin: 06/17/21 22:04 Dose: 300 mg Quetiapine Fumarate (Quetiapine 100 Mg Tab) 100 mg PO DAILY [facility] Last Admin: 06/17/21 10:29 Dose: Not Given Valproic Acid (Valproic Acid 250 Mg/5 Ml Oral Liqd) 125 mg PO TID [facility] Last Admin: 06/17/21 20:55 Dose: 125 mg Ziprasidone (Ziprasidone Mesylate 20 Mg Vial) 20 mg IM Q4H PRN PRN Reason: Agitation Last Admin: 06/17/21 11:04 Dose: 20 mg Results - Results Labs/Vitals: Laboratory Last Values WBC 4.6 K/mm3 (4.5-11.0) 06/12/21 23:42 RBC 3.08 M/mm3 (3.65-5.03) L 06/12/21 23:42 Hgb 9.8 gm/dl (11.8-15.2) L 06/12/21 23:42 Hct 30.3 % (35.5-45.6) L 06/12/21 23:42 MCV 98 fl (84-94) H 06/12/21 23:42 MCH 32 pg (28-32) 06/12/21 23:42 MCHC 32 % (32-34) 06/12/21 23:42 RDW 16.4 % (13.2-15.2) H 06/12/21 23:42 Plt Count 269 K/mm3 (140-440) 06/12/21 23:42 Lymph % (Auto) 27.4 % (13.4-35.0) 06/12/21 23:42 [place] % (Auto) 9.4 % (0.0-7.3) H 06/12/21 23:42 Eos % (Auto) 1.4 % (0.0-4.3) 06/12/21 23:42 Baso % (Auto) 0.5 % (0.0-1.8) 06/12/21 23:42 Lymph # (Auto) 1.2 K/mm3 (1.2-5.4) 06/12/21 23:42 [place] # (Auto) 0.4 K/mm3 (0.0-0.8) 06/12/21 23:42 Eos # (Auto) 0.1 K/mm3 (0.0-0.4) 06/12/21 23:42 Baso # (Auto) 0.0 K/mm3 (0.0-0.1) 06/12/21 23:42 Seg Neutrophils % 61.3 % (40.0-70.0) 06/12/21 23:42 Seg Neutrophils # 2.8 K/mm3 (1.8-7.7) 06/12/21 23:42 Sodium 138 mmol/L (137-145) 06/12/21 23:42 Potassium 4.2 mmol/L (3.6-5.0) 06/12/21 23:42 Chloride 103.5 mmol/L (98-107) 06/12/21 23:42 Carbon Dioxide 27 mmol/L (22-30) 06/12/21 23:42 Anion Gap 12 mmol/L 06/12/21 23:42 BUN 22 mg/dL (9-20) H 06/12/21 23:42 Creatinine 0.7 mg/dL (0.8-1.3) L 06/12/21 23:42 Estimated GFR > 60 ml/min 06/12/21 23:42 BUN/Creatinine Ratio 31 % 06/12/21 23:42 Glucose 95 mg/dL (75-100) 06/12/21 23:42 Hemoglobin A1c 5.6 % (4-6) 06/12/21 23:42 Calcium 8.6 mg/dL (8.4-10.2) 06/12/21 23:42 Total Bilirubin 0.20 mg/dL (0.1-1.2) 06/12/21 23:42 AST 24 units/L (5-40) 06/12/21 23:42 ALT 29 units/L (7-56) 06/12/21 23:42 Alkaline Phosphatase 96 units/L (35-129) 06/12/21 23:42 Total Protein 7.5 g/dL (6.3-8.2) 06/12/21 23:42 Albumin 3.4 g/dL (3.9-5) L 06/12/21 23:42 Albumin/Globulin Ratio 0.8 % 06/12/21 23:42 Triglycerides 50 mg/dL (2-149) 06/12/21 23:42 Cholesterol 164 mg/dL (50-199) 06/12/21 23:42 LDL Cholesterol Direct 93 mg/dL (50-130) 06/12/21 23:42 HDL Cholesterol 65 mg/dL (40-59) H 06/12/21 23:42 Cholesterol/HDL Ratio 2.52 % 06/12/21 23:42 TSH 2.150 mlU/mL (0.270-4.200) 06/12/21 23:42 Hepatitis A IgM Ab Non-reactive (NonReactive) 06/12/21 23:42 Hep Bs Antigen Non-reactive (Negative) 06/12/21 23:42 Hep B Core IgM Ab Non-reactive (NonReactive) 06/12/21 23:42 Hepatitis C Antibody Non-reactive (NonReactive) 06/12/21 23:42 Last Vital Signs Temp 98.3 F 06/17/21 20:16 Pulse 97 H 06/17/21 20:16 Resp 20 06/17/21 20:16 BP 117/68 06/17/21 20:16 Pulse Ox 97 06/17/21 20:16
[2021-06-18] MEDS: ASPIRIN EC 81 MG TAB PO SCH (09:09)
[2021-06-18] MEDS: CLOPIDOGREL 75 MG TAB PO SCH (09:09)
[2021-06-18] MEDS: QUEtiapine 100 MG TAB PO SCH ×2 (09:10→21:05)
[2021-06-18] MEDS: clonazePAM 0.5 MG TAB PO SCH ×2 (09:11→21:04)
[2021-06-18] MEDS: CHOLECALCIFEROL (VIT D3) 1000 UNIT (25 mcg) TAB PO SCH (09:11)
[2021-06-18] MEDS: MEMANTINE 5 MG TAB PO SCH ×2 (09:11→21:04)
--- NOTE | 2021-06-18 20:04 | Progress Note ---
Assessment and Plan - Patient Problems (1) Vascular dementia with behavioral disturbance Current Visit: Yes Status: Acute Plan to address problem: Verbal prompting, verbal redirection, benzodiazepine therapy as clinically indicated. (2) Cerebral atherosclerosis Current Visit: Yes Status: Acute Plan to address problem: Risk factor reduction continue antiplatelet therapy. (3) Coronary artery disease Current Visit: Yes Status: Acute Plan to address problem: Respect reduction, continue antiplatelet therapy, continue statin therapy. (4) Hypertension Current Visit: Yes Status: Acute Qualifiers: Hypertension type: primary hypertension Qualified Code(s): I10 - Essential (primary) hypertension Plan to address problem: Monitor blood pressure every shift, continue medical management (5) Hyperlipidemia Current Visit: Yes Status: Acute Plan to address problem: Low-cholesterol diet, statin therapy, supportive care. (6) Advance care planning Current Visit: Yes Status: Acute Plan to address problem: Disease education conducted, care plan discussed, diagnoses discussed, prognosis discussed, patient is full code, +30 minutes. History Interval history: 76 YO Male with Vascular Dementia with Behavioral Disturbance, Cerebral Atherosclerosis, HTN, CAD S/P CABG on antiplatelet therapy, HLD admitted to [facility] psych unit for psychiatric stabilization. Consult placed by Dr. Young for medical management. Patient remains confused with tangential thinking. No reported nursing events. Patient denies pain. Patient minimally cooperative but is at baseline level of cognition and and function. Hospitalist Physical - Constitutional Vitals: Temp Pulse Resp BP Pulse Ox 97.6 F 101 H 16 125/67 99 06/18/21 10:00 06/18/21 10:00 06/18/21 10:00 06/18/21 10:00 06/18/21 10:00 General appearance: Present: no acute distress - EENT Eyes: Present: PERRL ENT: hearing decreased - Neck Neck: Present: supple - Respiratory Respiratory effort: normal Respiratory: bilateral: CTA - Cardiovascular Rhythm: regular Heart Sounds: Present: S1 & S2 - Abdominal General gastrointestinal: soft, non-tender, non-distended - Integumentary Integumentary: Present: clear, dry - Psychiatric Psychiatric: cooperative - Neurologic Neurologic: CNII-XII intact Results - Labs CBC & Chem 7: 06/12/21 23:42 06/12/21 23:42 Labs: Laboratory Last Values WBC 4.6 K/mm3 (4.5-11.0) 06/12/21 23:42 RBC 3.08 M/mm3 (3.65-5.03) L 06/12/21 23:42 Hgb 9.8 gm/dl (11.8-15.2) L 06/12/21 23:42 Hct 30.3 % (35.5-45.6) L 06/12/21 23:42 MCV 98 fl (84-94) H 06/12/21 23:42 MCH 32 pg (28-32) 06/12/21 23:42 MCHC 32 % (32-34) 06/12/21 23:42 RDW 16.4 % (13.2-15.2) H 06/12/21 23:42 Plt Count 269 K/mm3 (140-440) 06/12/21 23:42 Lymph % (Auto) 27.4 % (13.4-35.0) 06/12/21 23:42 [place] % (Auto) 9.4 % (0.0-7.3) H 06/12/21 23:42 Eos % (Auto) 1.4 % (0.0-4.3) 06/12/21 23:42 Baso % (Auto) 0.5 % (0.0-1.8) 06/12/21:42 Lymph # (Auto) 1.2 K/mm3 (1.2-5.4) 06/12/21 23:42 [place] # (Auto) 0.4 K/mm3 (0.0-0.8) 06/12/21 23: Eos # (Auto) 0.1 K/mm3 (0.0-0.4) 06/12/21: Baso # (Auto) 0.0 K/mm3 (0.0-0.1) 06/12/21 23: Seg Neutrophils % 61.3 % (40.0-70.0) 06/12/21: Seg Neutrophils # 2.8 K/mm3 (1.8-7.7) 06/12/21 23:42 Sodium 138 mmol/L (137-145) 06/12/21 23:42 Potassium 4.2 mmol/L (3.6-5.0) 06/12/21 23: Chloride 103.5 mmol/L (98-107) 06/12/21 23:42 Carbon Dioxide 27 mmol/L (22-30) 06/12/21 23:42 Anion Gap 12 mmol/L 06/12/21 23:42 BUN 22 mg/dL (9-20) H 06/12/21 23:42 Creatinine 0.7 mg/dL (0.8-1.3) L 06/12/21 23:42 Estimated GFR > 60 ml/min 06/12/21 23:42 BUN/Creatinine Ratio 31 % 06/12/21 23:42 Glucose 95 mg/dL (75-100) 06/12/21 23:42 Hemoglobin A1c 5.6 % (4-6) 06/12/21 23:42 Calcium 8.6 mg/dL (8.4-10.2) 06/12/21 23:42 Total Bilirubin 0.20 mg/dL (0.1-1.2) 06/12/21 23:42 AST 24 units/L (5-40) 06/12/21 23:42 ALT 29 units/L (7-56) 06/12/21 23:42 Alkaline Phosphatase 96 units/L (35-129) 06/12/21 23:42 Total Protein 7.5 g/dL (6.3-8.2) 06/12/21 23:42 Albumin 3.4 g/dL (3.9-5) L 06/12/21 23:42 Albumin/Globulin Ratio 0.8 % 06/12/21 23:42 Triglycerides 50 mg/dL (2-149) 06/12/21 23:42 Cholesterol 164 mg/dL (50-199) 06/12/21 23:42 LDL Cholesterol Direct 93 mg/dL (50-130) 06/12/21 23:42 HDL Cholesterol 65 mg/dL (40-59) H 06/12/21 23:42 Cholesterol/HDL Ratio 2.52 % 06/12/21 23:42 TSH 2.150 mlU/mL (0.270-4.200) 06/12/21 23:42 Hepatitis A IgM Ab Non-reactive (NonReactive) 06/12/21 23:42 Hep Bs Antigen Non-reactive (Negative) 06/12/21 23:42 Hep B Core IgM Ab Non-reactive (NonReactive) 06/12/21 23:42 Hepatitis C Antibody Non-reactive (NonReactive) 06/12/21 23:42 [place]/IV: Voiding Method Diaper Active Medications - Current Medications Current Medications: Generic Name Dose Route Start Last Admin Trade Name Freq PRN Reason Stop Dose Admin Aspirin 81 mg 06/13/21 10:00 06/18/21 09:09 Aspirin Ec 81 Mg Tab PO 81 mg QDAY [facility] Administration Cholecalciferol 4,000 unit 06/13/21 10:00 06/18/21 09:11 Cholecalciferol (Vit D3) 1000 Unit (25 Mcg) Tab PO 4,000 unit QDAY [facility] Administration Clonazepam 0.5 mg 06/17/21 10:00 06/18/21 09:11 Clonazepam 0.5 Mg Tab PO 0.5 mg BID [facility] Administration Clopidogrel Bisulfate 75 mg 06/13/21 10:00 06/18/21 09:09 Clopidogrel 75 Mg Tab PO 75 mg QDAY [facility] Administration Donepezil HCl 10 mg 06/13/21 22:00 06/17/21 22:04 Donepezil 10 Mg Tab PO 10 mg HS [facility] Administration Loperamide HCl 2 mg 06/16/21 11:00 Loperamide 2 Mg Cap PO Q6H PRN Diarrhea Memantine 5 mg 06/13/21 10:00 06/18/21 09:11 Memantine 5 Mg Tab PO 5 mg BID [facility] Administration Mirtazapine 15 mg 06/13/21 22:00 06/17/21 22:04 Mirtazapine 15 Mg Tab PO 15 mg HS [facility] Administration Quetiapine Fumarate 300 mg 06/17/21 22:00 06/17/21 22:04 Quetiapine 100 Mg Tab PO 300 mg QHS [facility] Administration Quetiapine Fumarate 100 mg 06/17/21 10:00 06/18/21 09:10 Quetiapine 100 Mg Tab PO 100 mg DAILY [facility] Administration Valproic Acid 125 mg 06/15/21 10:00 06/18/21 13:59 Valproic Acid 250 Mg/5 Ml Oral Liqd PO 125 mg TID [facility] Administration Ziprasidone 20 mg 06/17/21 08:30 06/17/21 11:04 Ziprasidone Mesylate 20 Mg Vial IM 20 mg Q4H PRN Administration Agitation
--- NOTE | 2021-06-18 20:04 | Progress Note ---
Assessment and Plan - Patient Problems (1) Vascular dementia with behavioral disturbance Current Visit: Yes Status: Acute Plan to address problem: Verbal prompting, verbal redirection, benzodiazepine therapy as clinically indicated. (2) Cerebral atherosclerosis Current Visit: Yes Status: Acute Plan to address problem: Risk factor reduction continue antiplatelet therapy. (3) Coronary artery disease Current Visit: Yes Status: Acute Plan to address problem: Respect reduction, continue antiplatelet therapy, continue statin therapy. (4) Hypertension Current Visit: Yes Status: Acute Qualifiers: Hypertension type: primary hypertension Qualified Code(s): I10 - Essential (primary) hypertension Plan to address problem: Monitor blood pressure every shift, continue medical management (5) Hyperlipidemia Current Visit: Yes Status: Acute Plan to address problem: Low-cholesterol diet, statin therapy, supportive care. (6) Advance care planning Current Visit: Yes Status: Acute Plan to address problem: Disease education conducted, care plan discussed, diagnoses discussed, prognosis discussed, patient is full code, +30 minutes. History Interval history: 76 YO Male with Vascular Dementia with Behavioral Disturbance, Cerebral Atherosclerosis, HTN, CAD S/P CABG on antiplatelet therapy, HLD admitted to [facility] unit for psychiatric stabilization. Consult placed by Dr. Young for medical management. Patient remains confused with tangential thinking. No reported nursing events. Patient denies pain. Patient minimally cooperative but is at baseline level of cognition and and function. Hospitalist Physical - Constitutional Vitals: Temp Pulse Resp BP Pulse Ox 97.6 F 101 H 16 125/67 99 06/18/21 10:00 06/18/21 10:00 06/18/21 10:00 06/18/21 10:00 06/18/21 10:00 General appearance: Present: no acute distress - EENT Eyes: Present: PERRL ENT: hearing decreased - Neck Neck: Present: supple - Respiratory Respiratory effort: normal Respiratory: bilateral: CTA - Cardiovascular Rhythm: regular Heart Sounds: Present: S1 & S2 - Extremities Extremities: no ischemia Peripheral Pulses: within normal limits - Abdominal General gastrointestinal: soft, non-tender, non-distended - Integumentary Integumentary: Present: clear, dry - Psychiatric Psychiatric: cooperative - Neurologic Neurologic: CNII-XII intact Results - Labs CBC & Chem 7: 06/12/21 23:42 06/12/21 23:42 Labs: Laboratory Last Values WBC 4.6 K/mm3 (4.5-11.0) 06/12/21 23: RBC 3.08 M/mm3 (3.65-5.03) L 06/12/21 23:42 Hgb 9.8 gm/dl (11.8-15.2) L 06/12/21 23:42 Hct 30.3 % (35.5-45.6) L 06/12/21 23: MCV 98 fl (84-94) H 06/12/21 23: MCH 32 pg (28-32) 06/12/21 23: MCHC 32 % (32-34) 06/12/21 23: RDW 16.4 % (13.2-15.2) H 06/12/21: Plt Count 269 K/mm3 (140-440) 06/12/21: Lymph % (Auto) 27.4 % (13.4-35.0) 06/12/21: [place] % (Auto) 9.4 % (0.0-7.3) H 06/12/21: Eos % (Auto) 1.4 % (0.0-4.3) 06/12/21: Baso % (Auto) 0.5 % (0.0-1.8) 06/12/21: Lymph # (Auto) 1.2 K/mm3 (1.2-5.4) 06/12/21: [place] # (Auto) 0.4 K/mm3 (0.0-0.8) 06/12/21: Eos # (Auto) 0.1 K/mm3 (0.0-0.4) 06/12/21: Baso # (Auto) 0.0 K/mm3 (0.0-0.1) 06/12/21: Seg Neutrophils % 61.3 % (40.0-70.0) 06/12/21: Seg Neutrophils # 2.8 K/mm3 (1.8-7.7) 06/12/21 23: Sodium 138 mmol/L (137-145) 06/12/21: Potassium 4.2 mmol/L (3.6-5.0) 06/12/21: Chloride 103.5 mmol/L (98-107) 06/12/21 23:42 Carbon Dioxide 27 mmol/L (22-30) 06/12/21 23:42 Anion Gap 12 mmol/L 06/12/21 23:42 BUN 22 mg/dL (9-20) H 06/12/21 23:42 Creatinine 0.7 mg/dL (0.8-1.3) L 06/12/21 23:42 Estimated GFR > 60 ml/min 06/12/21 23:42 BUN/Creatinine Ratio 31 % 06/12/21 23:42 Glucose 95 mg/dL (75-100) 06/12/21 23:42 Hemoglobin A1c 5.6 % (4-6) 06/12/21 23:42 Calcium 8.6 mg/dL (8.4-10.2) 06/12/21 23:42 Total Bilirubin 0.20 mg/dL (0.1-1.2) 06/12/21 23:42 AST 24 units/L (5-40) 06/12/21 23:42 ALT 29 units/L (7-56) 06/12/21 23:42 Alkaline Phosphatase 96 units/L (35-129) 06/12/21 23:42 Total Protein 7.5 g/dL (6.3-8.2) 06/12/21 23:42 Albumin 3.4 g/dL (3.9-5) L 06/12/21 23:42 Albumin/Globulin Ratio 0.8 % 06/12/21 23:42 Triglycerides 50 mg/dL (2-149) 06/12/21 23:42 Cholesterol 164 mg/dL (50-199) 06/12/21 23:42 LDL Cholesterol Direct 93 mg/dL (50-130) 06/12/21 23:42 HDL Cholesterol 65 mg/dL (40-59) H 06/12/21 23:42 Cholesterol/HDL Ratio 2.52 % 06/12/21 23:42 TSH 2.150 mlU/mL (0.270-4.200) 06/12/21 23:42 Hepatitis A IgM Ab Non-reactive (NonReactive) 06/12/21 23:42 Hep Bs Antigen Non-reactive (Negative) 06/12/21 23: Hep B Core IgM Ab Non-reactive (NonReactive) 06/12/21 23:42 Hepatitis C Antibody Non-reactive (NonReactive) 06/12/21 23:42 [place]/IV: Voiding Method Diaper Active Medications - Current Medications Current Medications: Generic Name Dose Route Start Last Admin Trade Name Freq PRN Reason Stop Dose Admin Aspirin 81 mg 06/13/21 10:00 06/18/21 09:09 Aspirin Ec 81 Mg Tab PO 81 mg QDAY [facility]RO Administration Cholecalciferol 4,000 unit 06/13/21 10:00 06/18/21 09:11 Cholecalciferol (Vit D3) 1000 Unit (25 Mcg) Tab PO 4,000 unit QDAY [facility] Administration Clonazepam 0.5 mg 06/17/21 10:00 06/18/21 09:11 Clonazepam 0.5 Mg Tab PO 0.5 mg BID P[facility]RO Administration Clopidogrel Bisulfate 75 mg 06/13/21 10:00 06/18/21 09:09 Clopidogrel 75 Mg Tab PO 75 mg QDAY [facility] Administration Donepezil HCl 10 mg 06/13/21 22:00 06/17/21 22:04 Donepezil 10 Mg Tab PO 10 mg HS PEDRO Administration Loperamide HCl 2 mg 06/16/21 11:00 Loperamide 2 Mg Cap PO Q6H PRN Diarrhea Memantine 5 mg 06/13/21 10:00 06/18/21 09:11 Memantine 5 Mg Tab PO 5 mg BID P[facility]RO Administration Mirtazapine 15 mg 06/13/21 22:00 06/17/21 22:04 Mirtazapine 15 Mg Tab PO 15 mg HS PEDRO Administration Quetiapine Fumarate 300 mg 06/17/21 22:00 06/17/21 22:04 Quetiapine 100 Mg Tab PO 300 mg QHS PEDRO Administration Quetiapine Fumarate 100 mg 06/17/21 10:00 06/18/21 09:10 Quetiapine 100 Mg Tab PO 100 mg DAILY [facility]RO Administration Valproic Acid 125 mg 06/15/21 10:00 06/18/21 13:59 Valproic Acid 250 Mg/5 Ml Oral Liqd PO 125 mg TID [facility]RO Administration Ziprasidone 20 mg 06/17/21 08:30 06/17/21 11:04 Ziprasidone Mesylate 20 Mg Vial IM 20 mg Q4H PRN Administration Agitation
--- NOTE | 2021-06-18 20:05 | Progress Note ---
Assessment and Plan - Patient Problems (1) Vascular dementia with behavioral disturbance Current Visit: Yes Status: Acute Plan to address problem: Verbal prompting, verbal redirection, benzodiazepine therapy as clinically indicated. (2) Cerebral atherosclerosis Current Visit: Yes Status: Acute Plan to address problem: Risk factor reduction continue antiplatelet therapy. (3) Coronary artery disease Current Visit: Yes Status: Acute Plan to address problem: Respect reduction, continue antiplatelet therapy, continue statin therapy. (4) Hypertension Current Visit: Yes Status: Acute Qualifiers: Hypertension type: primary hypertension Qualified Code(s): I10 - Essential (primary) hypertension Plan to address problem: Monitor blood pressure every shift, continue medical management (5) Hyperlipidemia Current Visit: Yes Status: Acute Plan to address problem: Low-cholesterol diet, statin therapy, supportive care. (6) Advance care planning Current Visit: Yes Status: Acute Plan to address problem: Disease education conducted, care plan discussed, diagnoses discussed, prognosis discussed, patient is full code, +30 minutes. History Interval history: 76 YO Male with Vascular Dementia with Behavioral Disturbance, Cerebral Atherosclerosis, HTN, CAD S/P CABG on antiplatelet therapy, HLD admitted to [facility] unit for psychiatric stabilization. Consult placed by Dr. Young for medical management. Patient seen and evaluated in the recreation room. Patient remains confused with tangential thinking. No reported nursing events. Patient denies pain. Patient remains minimally cooperative but is at baseline level of cognition and and function. Hospitalist Physical - Constitutional Vitals: Temp Pulse Resp BP Pulse Ox 97.6 F 101 H 16 125/67 99 06/18/21 10:00 06/18/21 10:00 06/18/21 10:00 06/18/21 10:06/18/21 10:00 General appearance: Present: no acute distress - EENT Eyes: Present: PERRL ENT: hearing decreased - Neck Neck: Present: supple - Respiratory Respiratory effort: normal Respiratory: bilateral: CTA - Cardiovascular Rhythm: regular Heart Sounds: Present: S1 & S2 - Extremities Extremities: no ischemia Peripheral Pulses: within normal limits - Abdominal General gastrointestinal: soft, non-tender, non-distended - Integumentary Integumentary: Present: clear, dry - Psychiatric Psychiatric: cooperative - Neurologic Neurologic: CNII-XII intact Results - Labs CBC & Chem 7: 06/12/21 23:42 06/12/21 23:42 Labs: Laboratory Last Values WBC 4.6 K/mm3 (4.5-11.0) 06/12/21 23:42 RBC 3.08 M/mm3 (3.65-5.03) L 06/12/21 23:42 Hgb 9.8 gm/dl (11.8-15.2) L 06/12/21 23:42 Hct 30.3 % (35.5-45.6) L 06/12/21 23:42 MCV 98 fl (84-94) H 06/12/21 23:42 MCH 32 pg (28-32) 06/12/21 23:42 MCHC 32 % (32-34) 06/12/21 23:42 RDW 16.4 % (13.2-15.2) H 06/12/21 23:42 Plt Count 269 K/mm3 (140-440) 06/12/21 23:42 Lymph % (Auto) 27.4 % (13.4-35.0) 06/12/21 23:42 [place] % (Auto) 9.4 % (0.0-7.3) H 06/12/21 23:42 Eos % (Auto) 1.4 % (0.0-4.3) 06/12/21 23:42 Baso % (Auto) 0.5 % (0.0-1.8) 06/12/21 23:42 Lymph # (Auto) 1.2 K/mm3 (1.2-5.4) 06/12/21 23:42 [place] # (Auto) 0.4 K/mm3 (0.0-0.8) 06/12/21 23:42 Eos # (Auto) 0.1 K/mm3 (0.0-0.4) 06/12/21 23:42 Baso # (Auto) 0.0 K/mm3 (0.0-0.1) 06/12/21 23:42 Seg Neutrophils % 61.3 % (40.0-70.0) 06/12/21 23:42 Seg Neutrophils # 2.8 K/mm3 (1.8-7.7) 06/12/21 23:42 Sodium 138 mmol/L (137-145) 06/12/21 23:42 Potassium 4.2 mmol/L (3.6-5.0) 06/12/21 23:42 Chloride 103.5 mmol/L (98-107) 06/12/21 23:42 Carbon Dioxide 27 mmol/L (22-30) 06/12/21 23:42 Anion Gap 12 mmol/L 06/12/21 23:42 BUN 22 mg/dL (9-20) H 06/12/21 23:42 Creatinine 0.7 mg/dL (0.8-1.3) L 06/12/21 23:42 Estimated GFR > 60 ml/min 06/12/21 23:42 BUN/Creatinine Ratio 31 % 06/12/21 23:42 Glucose 95 mg/dL (75-100) 06/12/21 23:42 Hemoglobin A1c 5.6 % (4-6) 06/12/21 23:42 Calcium 8.6 mg/dL (8.4-10.2) 06/12/21 23:42 Total Bilirubin 0.20 mg/dL (0.1-1.2) 06/12/21 23:42 AST 24 units/L (5-40) 06/12/21 23:42 ALT 29 units/L (7-56) 06/12/21 23:42 Alkaline Phosphatase 96 units/L (35-129) 06/12/21 23:42 Total Protein 7.5 g/dL (6.3-8.2) 06/12/21 23:42 Albumin 3.4 g/dL (3.9-5) L 06/12/21 23:42 Albumin/Globulin Ratio 0.8 % 06/12/21 23:42 Triglycerides 50 mg/dL (2-149) 06/12/21 23:42 Cholesterol 164 mg/dL (50-199) 06/12/21 23:42 LDL Cholesterol Direct 93 mg/dL (50-130) 06/12/21 23:42 HDL Cholesterol 65 mg/dL (40-59) H 06/12/21 23:42 Cholesterol/HDL Ratio 2.52 % 06/12/21 23:42 TSH 2.150 mlU/mL (0.270-4.200) 06/12/21 23:42 Hepatitis A IgM Ab Non-reactive (NonReactive) 06/12/21 23:42 Hep Bs Antigen Non-reactive (Negative) 06/12/21 23:42 Hep B Core IgM Ab Non-reactive (NonReactive) 06/12/21 23:42 Hepatitis C Antibody Non-reactive (NonReactive) 06/12/21 23:42 [place]/IV: Voiding Method Diaper Active Medications - Current Medications Current Medications: Generic Name Dose Route Start Last Admin Trade Name Freq PRN Reason Stop Dose Admin Aspirin 81 mg 06/13/21 10:00 06/18/21 09:09 Aspirin Ec 81 Mg Tab PO 81 mg QDAY PEDRO Administration Cholecalciferol 4,000 unit 06/13/21 10:00 06/18/21 09:11 Cholecalciferol (Vit D3) 1000 Unit (25 Mcg) Tab PO 4,000 unit QDAY PEDRO Administration Clonazepam 0.5 mg 06/17/21 10:00 06/18/21 09:11 Clonazepam 0.5 Mg Tab PO 0.5 mg BID PEDRO Administration Clopidogrel Bisulfate 75 mg 06/13/21 10:00 06/18/21 09:09 Clopidogrel 75 Mg Tab PO 75 mg QDAY PEDRO Administration Donepezil HCl 10 mg 06/13/21 22:00 06/17/21 22:04 Donepezil 10 Mg Tab PO 10 mg HS PEDRO Administration Loperamide HCl 2 mg 06/16/21 11:00 Loperamide 2 Mg Cap PO Q6H PRN Diarrhea Memantine 5 mg 06/13/21 10:00 06/18/21 09:11 Memantine 5 Mg Tab PO 5 mg BID PEDRO Administration Mirtazapine 15 mg 06/13/21 22:00 06/17/21 22:04 Mirtazapine 15 Mg Tab PO 15 mg HS PEDRO Administration Quetiapine Fumarate 300 mg 06/17/21 22:00 06/17/21 22:04 Quetiapine 100 Mg Tab PO 300 mg QHS PEDRO Administration Quetiapine Fumarate 100 mg 06/17/21 10:00 06/18/21 09:10 Quetiapine 100 Mg Tab PO 100 mg DAILY PEDRO Administration Valproic Acid 125 mg 06/15/21 10:00 06/18/21 13:59 Valproic Acid 250 Mg/5 Ml Oral Liqd PO 125 mg TID PEDRO Administration Ziprasidone 20 mg 06/17/21 08:30 06/17/21 11:04 Ziprasidone Mesylate 20 Mg Vial IM 20 mg Q4H PRN Administration Agitation
[2021-06-18] MEDS: DONEPEZIL 10 MG TAB PO SCH (21:03)
[2021-06-18] MEDS: MIRTAZAPINE 15 MG TAB PO SCH (21:05)
[2021-06-19] MEDS: VALPROIC ACID 250 MG/5 ML ORAL LIQD PO SCH ×3 (08:45→22:20)
--- NOTE | 2021-06-19 09:28 | Progress Note ---
Subjective Date of service: 06/19/21 Principal diagnosis: Dementia with Behavioral Disturbance Subjective Comment: 06/16/21: The patient was seen this morning pacing the hallway. The patient is confused, defecated allover the [address]. The patient to be placed on 1:1. 06/17/21: The patient was seen pacing. The patient is confused, banging on the windows with disorganized thoughts. 06/18/21: The patient was seen eating breakfast. He continues to be confused but calmer today. He is still talking to himself " I got to go get the phone and sign my name." 06/19/21: The patient was seen this morning. He continues to be confused and pacing the [address]. REVIEW OF SYSTEMS Constitutional: Negative for weight loss ENT: Negative for stridor Respiratory: Negative for cough or hemoptysis All other systems reviewed and are negative MENTAL STATUS EXAMINATION Unable to assess Assessment (1)Dementia with Behavioral Disturbance Current Visit: Yes Status: Acute Treatment Plan Patient admitted for inpatient psychiatric evaluation, medication adjustment and close monitoring The patient's behavior, mood, sleep and appetite will be closely monitored. Patient enrolled in individual and group therapeutic sessions and encouraged to attend. Patient provided with a safe and structured environment. Patient's physical health needs will be addressed by the Hospitalist. Hospitalist Consulted Labs including CBC, CMP, Lipid profile and Hemoglobin A1C levels ordered for baseline reference Social Assessment will be completed and the Geology Faculty Member will work with patient and family to ensure a suitable and safe disposition Medication adjustment will be made as clinically indicated Continue Klonopin 0.25mg po BID x 3 days Continue Geodon 10mg IM q6h agitation Continue Seroquel 100mg po daily Continue seroquel 300mg po QHS Increase Valproic acid 250mg po BID Usual Wellness Mandaen/Preservation: - Start Trazodone 50 mg po QHS & 50 mg po QHS PRN between 10 PM & 2 AM for insomnia - Start Melatonin 5 mg po QHS to promote circadian rhythm The patient agreed on the treatment plan, understood the risk, benefit, alternative treatment, potential consequence of no treatment, and gave informed consent. Estimated days: 3 Post hospital care: primary care provider, psychiatric provider Case staffed with Dr. Carrion Medications and Allergies Medications and Allergies Allergies Allergy/AdvReac Type Severity Reaction Status Date / Time morphine Allergy Unknown Verified 06/12/21 22:36 Home Medications Medication Instructions Recorded Confirmed Last Taken Type Aspirin EC [Halfprin EC] 81 mg PO QDAY 06/12/21 06/12/21 Unknown History Cholecalciferol Vit D3 [Vitamin D3 4,000 unit PO QDAY 06/12/21 06/12/21 Unknown History 1,000 UNIT TAB] Clopidogrel [Plavix] 75 mg PO QDAY 06/12/21 06/12/21 Unknown History Memantine [Namenda] 5 mg PO BID 06/12/21 06/12/21 Unknown History Mirtazapine [Remeron] 15 mg PO HS 06/12/21 06/12/21 Unknown History QUEtiapine [SEROquel] 100 mg PO HS 06/12/21 06/12/21 Unknown History Quetiapine Fumarate [SEROquel] 50 mg PO QDAY 06/12/21 06/12/21 Unknown History donepeziL [Aricept] 10 mg PO HS 06/12/21 06/12/21 Unknown History Active Meds: Active Medications Aspirin (Aspirin Ec 81 Mg Tab) 81 mg PO QDAY [facility] Last Admin: 06/18/21 09:09 Dose: 81 mg Cholecalciferol (Cholecalciferol (Vit D3) 1000 Unit (25 Mcg) Tab) 4,000 unit PO QDAY [facility] Last Admin: 06/18/21 09:11 Dose: 4,000 unit Clonazepam (Clonazepam 0.5 Mg Tab) 0.5 mg PO BID [facility] Last Admin: 06/18/21 21:04 Dose: 0.5 mg Clopidogrel Bisulfate (Clopidogrel 75 Mg Tab) 75 mg PO QDAY [facility] Last Admin: 06/18/21 09:09 Dose: 75 mg Donepezil HCl (Donepezil 10 Mg Tab) 10 mg PO [facility] Last Admin: 06/18/21 21:03 Dose: 10 mg Loperamide HCl (Loperamide 2 Mg Cap) 2 mg PO Q6H PRN PRN Reason: Diarrhea Memantine (Memantine 5 Mg Tab) 5 mg PO BID [facility] Last Admin: 06/18/21 21:04 Dose: 5 mg Mirtazapine (Mirtazapine 15 Mg Tab) 15 mg PO [facility] Last Admin: 06/18/21 21:05 Dose: 15 mg Quetiapine Fumarate (Quetiapine 100 Mg Tab) 300 mg PO QHS [facility] Last Admin: 06/18/21 21:05 Dose: 300 mg Quetiapine Fumarate (Quetiapine 100 Mg Tab) 100 mg PO DAILY [facility] Last Admin: 06/18/21 09:10 Dose: 100 mg Valproic Acid (Valproic Acid 250 Mg/5 Ml Oral Liqd) 125 mg PO TID [facility] Last Admin: 06/18/21 20:17 Dose: 125 mg Ziprasidone (Ziprasidone Mesylate 20 Mg Vial) 20 mg IM Q4H PRN PRN Reason: Agitation Last Admin: 06/17/21 11:04 Dose: 20 mg Results - Results Labs/Vitals: Laboratory Last Values WBC 4.6 K/mm3 (4.5-11.0) 06/12/21 23:42 RBC 3.08 M/mm3 (3.65-5.03) L 06/12/21 23:42 Hgb 9.8 gm/dl (11.8-15.2) L 06/12/21 23:42 Hct 30.3 % (35.5-45.6) L 06/12/21 23:42 MCV 98 fl (84-94) H 06/12/21 23:42 MCH 32 pg (28-32) 06/12/21 23:42 MCHC 32 % (32-34) 06/12/21 23:42 RDW 16.4 % (13.2-15.2) H 06/12/21 23:42 Plt Count 269 K/mm3 (140-440) 06/12/21 23:42 Lymph % (Auto) 27.4 % (13.4-35.0) 06/12/21 23:42 [place] % (Auto) 9.4 % (0.0-7.3) H 06/12/21 23:42 Eos % (Auto) 1.4 % (0.0-4.3) 06/12/21 23:42 Baso % (Auto) 0.5 % (0.0-1.8) 06/12/21 23:42 Lymph # (Auto) 1.2 K/mm3 (1.2-5.4) 06/12/21 23:42 [place] # (Auto) 0.4 K/mm3 (0.0-0.8) 06/12/21 23:42 Eos # (Auto) 0.1 K/mm3 (0.0-0.4) 06/12/21 23:42 Baso # (Auto) 0.0 K/mm3 (0.0-0.1) 06/12/21 23:42 Seg Neutrophils % 61.3 % (40.0-70.0) 06/12/21 23:42 Seg Neutrophils # 2.8 K/mm3 (1.8-7.7) 06/12/21 23:42 Sodium 138 mmol/L (137-145) 06/12/21 23:42 Potassium 4.2 mmol/L (3.6-5.0) 06/12/21 23:42 Chloride 103.5 mmol/L (98-107) 06/12/21 23:42 Carbon Dioxide 27 mmol/L (22-30) 06/12/21 23:42 Anion Gap 12 mmol/L 06/12/21 23:42 BUN 22 mg/dL (9-20) H 06/12/21 23:42 Creatinine 0.7 mg/dL (0.8-1.3) L 06/12/21 23:42 Estimated GFR > 60 ml/min 06/12/21 23:42 BUN/Creatinine Ratio 31 % 06/12/21 23:42 Glucose 95 mg/dL (75-100) 06/12/21 23:42 Hemoglobin A1c 5.6 % (4-6) 06/12/21 23:42 Calcium 8.6 mg/dL (8.4-10.2) 06/12/21 23:42 Total Bilirubin 0.20 mg/dL (0.1-1.2) 06/12/21 23:42 AST 24 units/L (5-40) 06/12/21 23:42 ALT 29 units/L (7-56) 06/12/21 23:42 Alkaline Phosphatase 96 units/L (35-129) 06/12/21 23:42 Total Protein 7.5 g/dL (6.3-8.2) 06/12/21 23:42 Albumin 3.4 g/dL (3.9-5) L 06/12/21 23:42 Albumin/Globulin Ratio 0.8 % 06/12/21 23:42 Triglycerides 50 mg/dL (2-149) 06/12/21 23:42 Cholesterol 164 mg/dL (50-199) 06/12/21 23:42 LDL Cholesterol Direct 93 mg/dL (50-130) 06/12/21 23:42 HDL Cholesterol 65 mg/dL (40-59) H 06/12/21 23:42 Cholesterol/HDL Ratio 2.52 % 06/12/21 23:42 TSH 2.150 mlU/mL (0.270-4.200) 06/12/21 23:42 Hepatitis A IgM Ab Non-reactive (NonReactive) 06/12/21 23: Hep Bs Antigen Non-reactive (Negative) 06/12/21 23: Hep B Core IgM Ab Non-reactive (NonReactive) 06/12/21 23:42 Hepatitis C Antibody Non-reactive (NonReactive) 06/12/21 23:42 Last Vital Signs Temp 98.1 F 06/18/21 20:52 Pulse 95 H 06/18/21 20:52 Resp 18 06/18/21 20:52 BP 102/57 06/18/21 20:52 Pulse Ox 96 06/18/21 20:52
[2021-06-19] MEDS: CLOPIDOGREL 75 MG TAB PO SCH (09:34)
[2021-06-19] MEDS: MEMANTINE 5 MG TAB PO SCH ×2 (09:37→22:24)
[2021-06-19] MEDS: clonazePAM 0.5 MG TAB PO SCH ×2 (09:37→22:24)
[2021-06-19] MEDS: QUEtiapine 100 MG TAB PO SCH ×2 (09:38→22:22)
[2021-06-19] MEDS: ASPIRIN EC 81 MG TAB PO SCH (09:39)
[2021-06-19] MEDS: CHOLECALCIFEROL (VIT D3) 1000 UNIT (25 mcg) TAB PO SCH (09:39)
[2021-06-19] MEDS: MIRTAZAPINE 15 MG TAB PO SCH (22:21)
[2021-06-19] MEDS: DONEPEZIL 10 MG TAB PO SCH (22:23)
[2021-06-20] MEDS: clonazePAM 0.5 MG TAB PO SCH ×2 (09:13→21:56)
[2021-06-20] MEDS: ASPIRIN EC 81 MG TAB PO SCH (09:13)
[2021-06-20] MEDS: VALPROIC ACID 250 MG/5 ML ORAL LIQD PO SCH ×2 (09:13→21:56)
[2021-06-20] MEDS: MEMANTINE 5 MG TAB PO SCH ×2 (09:14→21:56)
[2021-06-20] MEDS: CLOPIDOGREL 75 MG TAB PO SCH (09:14)
[2021-06-20] MEDS: CHOLECALCIFEROL (VIT D3) 1000 UNIT (25 mcg) TAB PO SCH (09:14)
[2021-06-20] MEDS: QUEtiapine 100 MG TAB PO SCH ×2 (09:14→21:56)
--- NOTE | 2021-06-20 10:05 | Progress Note ---
Subjective Date of service: 06/20/21 Principal diagnosis: Dementia with Behavioral Disturbance Subjective Comment: 06/16/21: The patient was seen this morning pacing the hallway. The patient is confused, defecated allover the [address]. The patient to be placed on 1:1. 06/17/21: The patient was seen pacing. The patient is confused, banging on the windows with disorganized thoughts. 06/18/21: The patient was seen eating breakfast. He continues to be confused but calmer today. He is still talking to himself " I got to go get the phone and sign my name." 06/19/21: The patient was seen this morning. He continues to be confused and pacing the [address]. 06/20/21: The patient was seen this morning. He continues to be confused and pacing the [address]. REVIEW OF SYSTEMS Constitutional: Negative for weight loss ENT: Negative for stridor Respiratory: Negative for cough or hemoptysis All other systems reviewed and are negative MENTAL STATUS EXAMINATION Unable to assess Assessment (1)Dementia with Behavioral Disturbance Current Visit: Yes Status: Acute Treatment Plan Patient admitted for inpatient psychiatric evaluation, medication adjustment and close monitoring The patient's behavior, mood, sleep and appetite will be closely monitored. Patient enrolled in individual and group therapeutic sessions and encouraged to attend. Patient provided with a safe and structured environment. Patient's physical health needs will be addressed by the Hospitalist. Hospitalist Consulted Labs including CBC, CMP, Lipid profile and Hemoglobin A1C levels ordered for baseline reference Social Assessment will be completed and the Hand Molder Meat will work with patient and family to ensure a suitable and safe disposition Medication adjustment will be made as clinically indicated Continue Klonopin 0.25mg po BID x 3 days Continue Geodon 10mg IM q6h agitation Continue Seroquel 100mg po daily Continue seroquel 300mg po QHS Increase Valproic acid 250mg po BID Usual Wellness Latter-Day/Preservation: - Start Trazodone 50 mg po QHS & 50 mg po QHS PRN between 10 PM & 2 AM for insomnia - Start Melatonin 5 mg po QHS to promote circadian rhythm The patient agreed on the treatment plan, understood the risk, benefit, alternative treatment, potential consequence of no treatment, and gave informed consent. Estimated days: 3 Post hospital care: primary care provider, psychiatric provider Case staffed with Dr. Carrion Medications and Allergies Medications and Allergies Allergies Allergy/AdvReac Type Severity Reaction Status Date / Time morphine Allergy Unknown Verified 06/12/21 22:36 Home Medications Medication Instructions Recorded Confirmed Last Taken Type Aspirin EC [Halfprin EC] 81 mg PO QDAY 06/12/21 06/12/21 Unknown History Cholecalciferol Vit D3 [Vitamin D3 4,000 unit PO QDAY 06/12/21 06/12/21 Unknown History 1,000 UNIT TAB] Clopidogrel [Plavix] 75 mg PO QDAY 06/12/21 06/12/21 Unknown History Memantine [Namenda] 5 mg PO BID 06/12/21 06/12/21 Unknown History Mirtazapine [Remeron] 15 mg PO HS 06/12/21 06/12/21 Unknown History QUEtiapine [SEROquel] 100 mg PO HS 06/12/21 06/12/21 Unknown History Quetiapine Fumarate [SEROquel] 50 mg PO QDAY 06/12/21 06/12/21 Unknown History donepeziL [Aricept] 10 mg PO HS 06/12/21 06/12/21 Unknown History Active Meds: Active Medications Aspirin (Aspirin Ec 81 Mg Tab) 81 mg PO QDAY [facility] Last Admin: 06/20/21 09:13 Dose: 81 mg Cholecalciferol (Cholecalciferol (Vit D3) 1000 Unit (25 Mcg) Tab) 4,000 unit PO QDAY [facility] Last Admin: 06/20/21 09:14 Dose: 4,000 unit Clonazepam (Clonazepam 0.5 Mg Tab) 0.5 mg PO BID [facility] Last Admin: 06/20/21 09:13 Dose: 0.5 mg Clopidogrel Bisulfate (Clopidogrel 75 Mg Tab) 75 mg PO QDAY [facility] Last Admin: 06/20/21 09:14 Dose: 75 mg Donepezil HCl (Donepezil 10 Mg Tab) 10 mg PO [facility] Last Admin: 06/19/21 22:23 Dose: 10 mg Loperamide HCl (Loperamide 2 Mg Cap) 2 mg PO Q6H PRN PRN Reason: Diarrhea Memantine (Memantine 5 Mg Tab) 5 mg PO BID [facility] Last Admin: 06/20/21 09:14 Dose: 5 mg Mirtazapine (Mirtazapine 15 Mg Tab) 15 mg PO [facility] Last Admin: 06/19/21 22:21 Dose: 15 mg Quetiapine Fumarate (Quetiapine 100 Mg Tab) 300 mg PO QHS [facility] Last Admin: 06/19/21 22:22 Dose: 300 mg Quetiapine Fumarate (Quetiapine 100 Mg Tab) 100 mg PO DAILY [facility] Last Admin: 06/20/21 09:14 Dose: 100 mg Valproic Acid (Valproic Acid 250 Mg/5 Ml Oral Liqd) 250 mg PO BID [facility] Last Admin: 06/20/21 09:13 Dose: 250 mg Ziprasidone (Ziprasidone Mesylate 20 Mg Vial) 20 mg IM Q4H PRN PRN Reason: Agitation Last Admin: 06/17/21 11:04 Dose: 20 mg Results - Results Labs/Vitals: Laboratory Last Values WBC 4.6 K/mm3 (4.5-11.0) 06/12/21 23:42 RBC 3.08 M/mm3 (3.65-5.03) L 06/12/21 23:42 Hgb 9.8 gm/dl (11.8-15.2) L 06/12/21 23:42 Hct 30.3 % (35.5-45.6) L 06/12/21 23:42 MCV 98 fl (84-94) H 06/12/21 23:42 MCH 32 pg (28-32) 06/12/21 23:42 MCHC 32 % (32-34) 06/12/21 23:42 RDW 16.4 % (13.2-15.2) H 06/12/21 23:42 Plt Count 269 K/mm3 (140-440) 06/12/21 23:42 Lymph % (Auto) 27.4 % (13.4-35.0) 06/12/21 23:42 [place] % (Auto) 9.4 % (0.0-7.3) H 06/12/21 23:42 Eos % (Auto) 1.4 % (0.0-4.3) 06/12/21 23:42 Baso % (Auto) 0.5 % (0.0-1.8) 06/12/21 23:42 Lymph # (Auto) 1.2 K/mm3 (1.2-5.4) 06/12/21 23:42 [place] # (Auto) 0.4 K/mm3 (0.0-0.8) 06/12/21 23:42 Eos # (Auto) 0.1 K/mm3 (0.0-0.4) 06/12/21 23:42 Baso # (Auto) 0.0 K/mm3 (0.0-0.1) 06/12/21 23:42 Seg Neutrophils % 61.3 % (40.0-70.0) 06/12/21 23:42 Seg Neutrophils # 2.8 K/mm3 (1.8-7.7) 06/12/21 23:42 Sodium 138 mmol/L (137-145) 06/12/21 23:42 Potassium 4.2 mmol/L (3.6-5.0) 06/12/21 23:42 Chloride 103.5 mmol/L (98-107) 06/12/21 23:42 Carbon Dioxide 27 mmol/L (22-30) 06/12/21 23:42 Anion Gap 12 mmol/L 06/12/21 23:42 BUN 22 mg/dL (9-20) H 06/12/21 23:42 Creatinine 0.7 mg/dL (0.8-1.3) L 06/12/21 23:42 Estimated GFR > 60 ml/min 06/12/21 23:42 BUN/Creatinine Ratio 31 % 06/12/21 23:42 Glucose 95 mg/dL (75-100) 06/12/21 23:42 Hemoglobin A1c 5.6 % (4-6) 06/12/21 23:42 Calcium 8.6 mg/dL (8.4-10.2) 06/12/21 23:42 Total Bilirubin 0.20 mg/dL (0.1-1.2) 06/12/21 23:42 AST 24 units/L (5-40) 06/12/21 23:42 ALT 29 units/L (7-56) 06/12/21 23:42 Alkaline Phosphatase 96 units/L (35-129) 06/12/21 23:42 Total Protein 7.5 g/dL (6.3-8.2) 06/12/21 23:42 Albumin 3.4 g/dL (3.9-5) L 06/12/21 23:42 Albumin/Globulin Ratio 0.8 % 06/12/21 23:42 Triglycerides 50 mg/dL (2-149) 06/12/21 23:42 Cholesterol 164 mg/dL (50-199) 06/12/21 23:42 LDL Cholesterol Direct 93 mg/dL (50-130) 06/12/21 23:42 HDL Cholesterol 65 mg/dL (40-59) H 06/12/21 23:42 Cholesterol/HDL Ratio 2.52 % 06/12/21 23:42 TSH 2.150 mlU/mL (0.270-4.200) 06/12/21 23:42 Hepatitis A IgM Ab Non-reactive (NonReactive) 06/12/21 23:42 Hep Bs Antigen Non-reactive (Negative) 06/12/21 23:42 Hep B Core IgM Ab Non-reactive (NonReactive) 06/12/21 23:42 Hepatitis C Antibody Non-reactive (NonReactive) 06/12/21 23:42 Last Vital Signs Temp 98.2 F 06/19/21 22:39 Pulse 103 H 06/19/21 22:39 Resp 18 06/19/21 22:39 BP 115/72 06/19/21 22:39 Pulse Ox 96 06/19/21 22:39
[2021-06-20] MEDS: MIRTAZAPINE 15 MG TAB PO SCH (21:56)
[2021-06-20] MEDS: DONEPEZIL 10 MG TAB PO SCH (21:56)
--- NOTE | 2021-06-21 08:37 | Progress Note ---
Subjective Date of service: 06/21/21 Principal diagnosis: Dementia with Behavioral Disturbance Subjective Comment: 06/16/21: The patient was seen this morning pacing the hallway. The patient is confused, defecated allover the [address]. The patient to be placed on 1:1. 06/17/21: The patient was seen pacing. The patient is confused, banging on the windows with disorganized thoughts. 06/18/21: The patient was seen eating breakfast. He continues to be confused but calmer today. He is still talking to himself " I got to go get the phone and sign my name." 06/19/21: The patient was seen this morning. He continues to be confused and pacing the [address]. 06/20/21: The patient was seen this morning. He continues to be confused and pacing the [address]. 06/21/21: The patient was seen this morning. He is calmer but continues to pace. Per nurse, " Last evening the patient slept until around 9 pm. He woke and took his medications and returned to sleep. He woke around 4 am and came out of his room yelling for breakfast. He was directed back to bed where he lay awake. Staff heard a noise in his room and he had a former patient's stuffed cat in his room along with her jewelry and clothing. Items were removed. Patient stayed awake for awhile then slept. He slept a total of 9 hours." REVIEW OF SYSTEMS Constitutional: Negative for weight loss ENT: Negative for stridor Respiratory: Negative for cough or hemoptysis All other systems reviewed and are negative MENTAL STATUS EXAMINATION Unable to assess Assessment (1)Dementia with Behavioral Disturbance Current Visit: Yes Status: Acute Treatment Plan Patient admitted for inpatient psychiatric evaluation, medication adjustment and close monitoring The patient's behavior, mood, sleep and appetite will be closely monitored. Patient enrolled in individual and group therapeutic sessions and encouraged to attend. Patient provided with a safe and structured environment. Patient's physical health needs will be addressed by the Hospitalist. Hospitalist Consulted Labs including CBC, CMP, Lipid profile and Hemoglobin A1C levels ordered for baseline reference Social Assessment will be completed and the Sales Clerk Supervisor will work with patient and family to ensure a suitable and safe disposition Medication adjustment will be made as clinically indicated Continue Klonopin 0.25mg po BID x 3 days Continue Geodon 10mg IM q6h agitation Continue Seroquel 100mg po daily Continue seroquel 300mg po QHS Increase Valproic acid 250mg po BID Usual Wellness Yazdanism/Preservation: - Start Trazodone 50 mg po QHS & 50 mg po QHS PRN between 10 PM & 2 AM for insomnia - Start Melatonin 5 mg po QHS to promote circadian rhythm The patient agreed on the treatment plan, understood the risk, benefit, alternative treatment, potential consequence of no treatment, and gave informed consent. Estimated days: 3 Post hospital care: primary care provider, psychiatric provider Case staffed with Dr. Carrion Medications and Allergies Medications and Allergies Medications and Allergies Allergies Allergy/AdvReac Type Severity Reaction Status Date / Time morphine Allergy Unknown Verified 06/12/21 22:36 Home Medications Medication Instructions Recorded Confirmed Last Taken Type Aspirin EC [Halfprin EC] 81 mg PO QDAY 06/12/21 06/12/21 Unknown History Cholecalciferol Vit D3 [Vitamin D3 4,000 unit PO QDAY 06/12/21 06/12/21 Unknown History 1,000 UNIT TAB] Clopidogrel [Plavix] 75 mg PO QDAY 06/12/21 06/12/21 Unknown History Memantine [Namenda] 5 mg PO BID 06/12/21 06/12/21 Unknown History Mirtazapine [Remeron] 15 mg PO HS 06/12/21 06/12/21 Unknown History QUEtiapine [SEROquel] 100 mg PO HS 06/12/21 06/12/21 Unknown History Quetiapine Fumarate [SEROquel] 50 mg PO QDAY 06/12/21 06/12/21 Unknown History donepeziL [Aricept] 10 mg PO HS 06/12/21 06/12/21 Unknown History Active Meds: Active Medications Aspirin (Aspirin Ec 81 Mg Tab) 81 mg PO QDAY [facility] Last Admin: 06/20/21 09:13 Dose: 81 mg Cholecalciferol (Cholecalciferol (Vit D3) 1000 Unit (25 Mcg) Tab) 4,000 unit PO QDAY [facility] Last Admin: 06/20/21 09:14 Dose: 4,000 unit Clonazepam (Clonazepam 0.5 Mg Tab) 0.5 mg PO BID [facility] Last Admin: 06/20/21 21:56 Dose: 0.5 mg Clopidogrel Bisulfate (Clopidogrel 75 Mg Tab) 75 mg PO QDAY [facility] Last Admin: 06/20/21 09:14 Dose: 75 mg Donepezil HCl (Donepezil 10 Mg Tab) 10 mg PO HS [facility] Last Admin: 06/20/21 21:56 Dose: 10 mg Loperamide HCl (Loperamide 2 Mg Cap) 2 mg PO Q6H PRN PRN Reason: Diarrhea Memantine (Memantine 5 Mg Tab) 5 mg PO BID [facility] Last Admin: 06/20/21 21:56 Dose: 5 mg Mirtazapine (Mirtazapine 15 Mg Tab) 15 mg PO HS [facility] Last Admin: 06/20/21 21:56 Dose: 15 mg Quetiapine Fumarate (Quetiapine 100 Mg Tab) 300 mg PO QHS [facility] Last Admin: 06/20/21 21:56 Dose: 300 mg Quetiapine Fumarate (Quetiapine 100 Mg Tab) 100 mg PO DAILY [facility] Last Admin: 06/20/21 09:14 Dose: 100 mg Valproic Acid (Valproic Acid 250 Mg/5 Ml Oral Liqd) 250 mg PO BID [facility] Last Admin: 06/20/21 21:56 Dose: 250 mg Ziprasidone (Ziprasidone Mesylate 20 Mg Vial) 20 mg IM Q4H PRN PRN Reason: Agitation Last Admin: 06/17/21 11:04 Dose: 20 mg Results - Results Labs/Vitals: Laboratory Last Values WBC 4.6 K/mm3 (4.5-11.0) 06/12/21 23:42 RBC 3.08 M/mm3 (3.65-5.03) L 06/12/21 23:42 Hgb 9.8 gm/dl (11.8-15.2) L 06/12/21 23:42 Hct 30.3 % (35.5-45.6) L 06/12/21 23:42 MCV 98 fl (84-94) H 06/12/21 23:42 MCH 32 pg (28-32) 06/12/21 23:42 MCHC 32 % (32-34) 06/12/21 23:42 RDW 16.4 % (13.2-15.2) H 06/12/21 23:42 Plt Count 269 K/mm3 (140-440) 06/12/21 23:42 Lymph % (Auto) 27.4 % (13.4-35.0) 06/12/21 23:42 [place] % (Auto) 9.4 % (0.0-7.3) H 06/12/21 23:42 Eos % (Auto) 1.4 % (0.0-4.3) 06/12/21 23:42 Baso % (Auto) 0.5 % (0.0-1.8) 06/12/21 23:42 Lymph # (Auto) 1.2 K/mm3 (1.2-5.4) 06/12/21 23:42 [place] # (Auto) 0.4 K/mm3 (0.0-0.8) 06/12/21 23:42 Eos # (Auto) 0.1 K/mm3 (0.0-0.4) 06/12/21 23:42 Baso # (Auto) 0.0 K/mm3 (0.0-0.1) 06/12/21 23:42 Seg Neutrophils % 61.3 % (40.0-70.0) 06/12/21 23:42 Seg Neutrophils # 2.8 K/mm3 (1.8-7.7) 06/12/21 23:42 Sodium 138 mmol/L (137-145) 06/12/21 23:42 Potassium 4.2 mmol/L (3.6-5.0) 06/12/21 23:42 Chloride 103.5 mmol/L (98-107) 06/12/21 23:42 Carbon Dioxide 27 mmol/L (22-30) 06/12/21 23:42 Anion Gap 12 mmol/L 06/12/21 23:42 BUN 22 mg/dL (9-20) H 06/12/21 23:42 Creatinine 0.7 mg/dL (0.8-1.3) L 06/12/21 23:42 Estimated GFR > 60 ml/min 06/12/21 23:42 BUN/Creatinine Ratio 31 % 06/12/21 23:42 Glucose 95 mg/dL (75-100) 06/12/21 23:42 Hemoglobin A1c 5.6 % (4-6) 06/12/21 23:42 Calcium 8.6 mg/dL (8.4-10.2) 06/12/21 23:42 Total Bilirubin 0.20 mg/dL (0.1-1.2) 06/12/21 23:42 AST 24 units/L (5-40) 06/12/21 23:42 ALT 29 units/L (7-56) 06/12/21 23:42 Alkaline Phosphatase 96 units/L (35-129) 06/12/21 23:42 Total Protein 7.5 g/dL (6.3-8.2) 06/12/21 23:42 Albumin 3.4 g/dL (3.9-5) L 06/12/21 23:42 Albumin/Globulin Ratio 0.8 % 06/12/21 23:42 Triglycerides 50 mg/dL (2-149) 06/12/21 23:42 Cholesterol 164 mg/dL (50-199) 06/12/21 23:42 LDL Cholesterol Direct 93 mg/dL (50-130) 06/12/21 23:42 HDL Cholesterol 65 mg/dL (40-59) H 06/12/21 23:42 Cholesterol/HDL Ratio 2.52 % 06/12/21 23:42 TSH 2.150 mlU/mL (0.270-4.200) 06/12/21 23:42 Hepatitis A IgM Ab Non-reactive (NonReactive) 06/12/21 23:42 Hep Bs Antigen Non-reactive (Negative) 06/12/21 23: Hep B Core IgM Ab Non-reactive (NonReactive) 06/12/21 23:42 Hepatitis C Antibody Non-reactive (NonReactive) 06/12/21 23:42 Last Vital Signs Temp 97.9 F 06/20/21 10:00 Pulse 109 H 06/20/21 10:00 Resp 18 06/20/21 10:00 BP 111/63 06/20/21 10:00 Pulse Ox 97 06/20/21 10:00
[2021-06-21] MEDS: VALPROIC ACID 250 MG/5 ML ORAL LIQD PO SCH ×2 (09:02→21:51)
[2021-06-21] MEDS: ASPIRIN EC 81 MG TAB PO SCH (09:02)
[2021-06-21] MEDS: MEMANTINE 5 MG TAB PO SCH ×2 (09:02→21:52)
[2021-06-21] MEDS: clonazePAM 0.5 MG TAB PO SCH ×2 (09:03→21:52)
[2021-06-21] MEDS: CLOPIDOGREL 75 MG TAB PO SCH (09:03)
[2021-06-21] MEDS: CHOLECALCIFEROL (VIT D3) 1000 UNIT (25 mcg) TAB PO SCH (09:03)
[2021-06-21] MEDS: QUEtiapine 100 MG TAB PO SCH ×2 (09:03→21:51)
[2021-06-21] MEDS: DONEPEZIL 10 MG TAB PO SCH (21:52)
[2021-06-21] MEDS: MIRTAZAPINE 15 MG TAB PO SCH (21:53)
--- NOTE | 2021-06-22 09:17 | Progress Note ---
Subjective Date of service: 06/22/21 Principal diagnosis: Dementia with Behavioral Disturbance Subjective Comment: 06/16/21: The patient was seen this morning pacing the hallway. The patient is confused, defecated allover the [address]. The patient to be placed on 1:1. 06/17/21: The patient was seen pacing. The patient is confused, banging on the windows with disorganized thoughts. 06/18/21: The patient was seen eating breakfast. He continues to be confused but calmer today. He is still talking to himself " I got to go get the phone and sign my name." 06/19/21: The patient was seen this morning. He continues to be confused and pacing the [address]. 06/20/21: The patient was seen this morning. He continues to be confused and pacing the [address]. 06/21/21: The patient was seen this morning. He is calmer but continues to pace. Per nurse, " Last evening the patient slept until around 9 pm. He woke and took his medications and returned to sleep. He woke around 4 am and came out of his room yelling for breakfast. He was directed back to bed where he lay awake. Staff heard a noise in his room and he had a former patient's stuffed cat in his room along with her jewelry and clothing. Items were removed. Patient stayed awake for awhile then slept. He slept a total of 9 hours." 06/22/21: The patient was seen this morning. He continues to be confused and pacing the [address]. REVIEW OF SYSTEMS Constitutional: Negative for weight loss ENT: Negative for stridor Respiratory: Negative for cough or hemoptysis All other systems reviewed and are negative MENTAL STATUS EXAMINATION Unable to assess Assessment (1)Dementia with Behavioral Disturbance Current Visit: Yes Status: Acute Treatment Plan Patient admitted for inpatient psychiatric evaluation, medication adjustment and close monitoring The patient's behavior, mood, sleep and appetite will be closely monitored. Patient enrolled in individual and group therapeutic sessions and encouraged to attend. Patient provided with a safe and structured environment. Patient's physical health needs will be addressed by the Hospitalist. Hospitalist Consulted Labs including CBC, CMP, Lipid profile and Hemoglobin A1C levels ordered for baseline reference Social Assessment will be completed and the Alumni Relations Coordinator will work with patient and family to ensure a suitable and safe disposition Medication adjustment will be made as clinically indicated Continue Ironpin 0.25mg po BID x 3 days Continue Geodon 10mg IM q6h agitation Continue Seroquel 100mg po daily Continue seroquel 300mg po QHS Increase Valproic acid 250mg po BID Usual Wellness Rastafari/Preservation: - Start Trazodone 50 mg po QHS & 50 mg po QHS PRN between 10 PM & 2 AM for insomnia - Start Melatonin 5 mg po QHS to promote circadian rhythm The patient agreed on the treatment plan, understood the risk, benefit, alternative treatment, potential consequence of no treatment, and gave informed consent. Estimated days: 3 Post hospital care: primary care provider, psychiatric provider Case staffed with Dr. Carrion Medications and Allergies Medications and Allergies Medications and Allergies Allergies Allergy/AdvReac Type Severity Reaction Status Date / Time morphine Allergy Unknown Verified 06/12/21 22:36 Home Medications Medication Instructions Recorded Confirmed Last Taken Type Aspirin EC [Halfprin EC] 81 mg PO QDAY 06/12/21 06/12/21 Unknown History Cholecalciferol Vit D3 [Vitamin D3 4,000 unit PO QDAY 06/12/21 06/12/21 Unknown History 1,000 UNIT TAB] Clopidogrel [Plavix] 75 mg PO QDAY 06/12/21 06/12/21 Unknown History Memantine [Namenda] 5 mg PO BID 06/12/21 06/12/21 Unknown History Mirtazapine [Remeron] 15 mg PO HS 06/12/21 06/12/21 Unknown History QUEtiapine [SEROquel] 100 mg PO HS 06/12/21 06/12/21 Unknown History Quetiapine Fumarate [SEROquel] 50 mg PO QDAY 06/12/21 06/12/21 Unknown History donepeziL [Aricept] 10 mg PO HS 06/12/21 06/12/21 Unknown History Active Meds: Active Medications Aspirin (Aspirin Ec 81 Mg Tab) 81 mg PO QDAY [facility] Last Admin: 06/21/21 09:02 Dose: 81 mg Cholecalciferol (Cholecalciferol (Vit D3) 1000 Unit (25 Mcg) Tab) 4,000 unit PO QDAY [facility] Last Admin: 06/21/21 09:03 Dose: 4,000 unit Clonazepam (Clonazepam 0.5 Mg Tab) 0.5 mg PO BID [facility] Last Admin: 06/21/21 21:52 Dose: 0.5 mg Clopidogrel Bisulfate (Clopidogrel 75 Mg Tab) 75 mg PO QDAY [facility] Last Admin: 06/21/21 09:03 Dose: 75 mg Donepezil HCl (Donepezil 10 Mg Tab) 10 mg PO HS [facility] Last Admin: 06/21/21 21:52 Dose: 10 mg Loperamide HCl (Loperamide 2 Mg Cap) 2 mg PO Q6H PRN PRN Reason: Diarrhea Memantine (Memantine 5 Mg Tab) 5 mg PO BID [facility] Last Admin: 06/21/21 21:52 Dose: 5 mg Mirtazapine (Mirtazapine 15 Mg Tab) 15 mg PO HS [facility] Last Admin: 06/21/21 21:53 Dose: 15 mg Quetiapine Fumarate (Quetiapine 100 Mg Tab) 300 mg PO QHS [facility] Last Admin: 06/21/21 21:51 Dose: 300 mg Quetiapine Fumarate (Quetiapine 100 Mg Tab) 100 mg PO DAILY [facility] Last Admin: 06/21/21 09:03 Dose: 100 mg Valproic Acid (Valproic Acid 250 Mg/5 Ml Oral Liqd) 250 mg PO BID [facility] Last Admin: 06/21/21 21:51 Dose: 250 mg Ziprasidone (Ziprasidone Mesylate 20 Mg Vial) 20 mg IM Q4H PRN PRN Reason: Agitation Last Admin: 06/17/21 11:04 Dose: 20 mg Results - Results Labs/Vitals: Laboratory Last Values WBC 4.6 K/mm3 (4.5-11.0) 06/12/21 23:42 RBC 3.08 M/mm3 (3.65-5.03) L 06/12/21 23:42 Hgb 9.8 gm/dl (11.8-15.2) L 06/12/21 23:42 Hct 30.3 % (35.5-45.6) L 06/12/21 23:42 MCV 98 fl (84-94) H 06/12/21 23:42 MCH 32 pg (28-32) 06/12/21 23:42 MCHC 32 % (32-34) 06/12/21 23:42 RDW 16.4 % (13.2-15.2) H 06/12/21 23:42 Plt Count 269 K/mm3 (140-440) 06/12/21 23:42 Lymph % (Auto) 27.4 % (13.4-35.0) 06/12/21 23:42 [place] % (Auto) 9.4 % (0.0-7.3) H 06/12/21 23:42 Eos % (Auto) 1.4 % (0.0-4.3) 06/12/21 23:42 Baso % (Auto) 0.5 % (0.0-1.8) 06/12/21 23:42 Lymph # (Auto) 1.2 K/mm3 (1.2-5.4) 06/12/21 23:42 [place] # (Auto) 0.4 K/mm3 (0.0-0.8) 06/12/21 23:42 Eos # (Auto) 0.1 K/mm3 (0.0-0.4) 06/12/21 23:42 Baso # (Auto) 0.0 K/mm3 (0.0-0.1) 06/12/21 23:42 Seg Neutrophils % 61.3 % (40.0-70.0) 06/12/21 23:42 Seg Neutrophils # 2.8 K/mm3 (1.8-7.7) 06/12/21 23:42 Sodium 138 mmol/L (137-145) 06/12/21 23:42 Potassium 4.2 mmol/L (3.6-5.0) 06/12/21 23:42 Chloride 103.5 mmol/L (98-107) 06/12/21 23:42 Carbon Dioxide 27 mmol/L (22-30) 06/12/21 23:42 Anion Gap 12 mmol/L 06/12/21 23:42 BUN 22 mg/dL (9-20) H 06/12/21 23:42 Creatinine 0.7 mg/dL (0.8-1.3) L 06/12/21 23:42 Estimated GFR > 60 ml/min 06/12/21 23:42 BUN/Creatinine Ratio 31 % 06/12/21 23:42 Glucose 95 mg/dL (75-100) 06/12/21 23:42 Hemoglobin A1c 5.6 % (4-6) 06/12/21 23:42 Calcium 8.6 mg/dL (8.4-10.2) 06/12/21 23:42 Total Bilirubin 0.20 mg/dL (0.1-1.2) 06/12/21 23:42 AST 24 units/L (5-40) 06/12/21 23:42 ALT 29 units/L (7-56) 06/12/21 23:42 Alkaline Phosphatase 96 units/L (35-129) 06/12/21 23:42 Total Protein 7.5 g/dL (6.3-8.2) 06/12/21 23:42 Albumin 3.4 g/dL (3.9-5) L 06/12/21 23:42 Albumin/Globulin Ratio 0.8 % 06/12/21 23:42 Triglycerides 50 mg/dL (2-149) 06/12/21 23:42 Cholesterol 164 mg/dL (50-199) 06/12/21 23:42 LDL Cholesterol Direct 93 mg/dL (50-130) 06/12/21 23:42 HDL Cholesterol 65 mg/dL (40-59) H 06/12/21 23:42 Cholesterol/HDL Ratio 2.52 % 06/12/21 23:42 TSH 2.150 mlU/mL (0.270-4.200) 06/12/21 23:42 Hepatitis A IgM Ab Non-reactive (NonReactive) 06/12/21 23: Hep Bs Antigen Non-reactive (Negative) 06/12/21 23:42 Hep B Core IgM Ab Non-reactive (NonReactive) 06/12/21 23:42 Hepatitis C Antibody Non-reactive (NonReactive) 06/12/21 23:42 Last Vital Signs Temp 97.4 F L 06/22/21 08:16 Pulse 108 H 06/22/21 08:16 Resp 18 06/22/21 08:16 BP 125/72 06/22/21 08:16 Pulse Ox 93 06/22/21 08:16
[2021-06-22] MEDS: QUEtiapine 100 MG TAB PO SCH ×2 (09:53→21:56)
[2021-06-22] MEDS: CHOLECALCIFEROL (VIT D3) 1000 UNIT (25 mcg) TAB PO SCH (09:53)
[2021-06-22] MEDS: MEMANTINE 5 MG TAB PO SCH ×2 (09:53→21:56)
[2021-06-22] MEDS: ASPIRIN EC 81 MG TAB PO SCH (09:53)
[2021-06-22] MEDS: VALPROIC ACID 250 MG/5 ML ORAL LIQD PO SCH ×2 (09:54→21:55)
[2021-06-22] MEDS: CLOPIDOGREL 75 MG TAB PO SCH (09:54)
[2021-06-22] MEDS: clonazePAM 0.5 MG TAB PO SCH ×2 (09:54→21:55)
[2021-06-22] MEDS: MIRTAZAPINE 15 MG TAB PO SCH (21:55)
[2021-06-22] MEDS: DONEPEZIL 10 MG TAB PO SCH (21:56)
[2021-06-23] MEDS: QUEtiapine 100 MG TAB PO SCH ×2 (09:10→21:15)
[2021-06-23] MEDS: ASPIRIN EC 81 MG TAB PO SCH (09:10)
[2021-06-23] MEDS: clonazePAM 0.5 MG TAB PO SCH ×2 (09:10→21:15)
[2021-06-23] MEDS: VALPROIC ACID 250 MG/5 ML ORAL LIQD PO SCH ×3 (09:10→21:15)
[2021-06-23] MEDS: CHOLECALCIFEROL (VIT D3) 1000 UNIT (25 mcg) TAB PO SCH (09:11)
[2021-06-23] MEDS: MEMANTINE 5 MG TAB PO SCH ×2 (09:11→21:15)
[2021-06-23] MEDS: CLOPIDOGREL 75 MG TAB PO SCH (09:11)
--- NOTE | 2021-06-23 09:16 | Progress Note ---
Subjective Date of service: 06/23/21 Principal diagnosis: Dementia with Behavioral Disturbance Subjective Comment: The patient was seen today. He is walking the [place]. He is confused and rambling. REVIEW OF SYSTEMS Constitutional: Negative for weight loss ENT: Negative for stridor Respiratory: Negative for cough or hemoptysis All other systems reviewed and are negative MENTAL STATUS EXAMINATION Unable to assess Assessment (1)Dementia with Behavioral Disturbance Current Visit: Yes Status: Acute Treatment Plan Patient admitted for inpatient psychiatric evaluation, medication adjustment and close monitoring The patient's behavior, mood, sleep and appetite will be closely monitored. Patient enrolled in individual and group therapeutic sessions and encouraged to attend. Patient provided with a safe and structured environment. Patient's physical health needs will be addressed by the Hospitalist. H ospitalist Consulted Labs including CBC, CMP, Lipid profile and Hemoglobin A1C levels ordered for baseline reference Social Assessment will be completed and the Patient Service Associate will work with patient and family to ensure a suitable and safe disposition Medication adjustment will be made as clinically indicated Increase Valproic acid 250mg po TID Usual Wellness Faith/Preservation: - Start Trazodone 50 mg po QHS & 50 mg po QHS PRN between 10 PM & 2 AM for insomnia - Start Melatonin 5 mg po QHS to promote circadian rhythm The patient agreed on the treatment plan, understood the risk, benefit, alternative treatment, potential consequence of no treatment, and gave informed consent. Estimated days: 7 Post hospital care: primary care provider, psychiatric provider Case staffed with Dr. Carrion Medications and Allergies Allergies Allergy/AdvReac Type Severity Reaction Status Date / Time morphine Allergy Unknown Verified 06/12/21 22:36 Home Medications Medication Instructions Recorded Confirmed Last Taken Type Aspirin EC [Halfprin EC] 81 mg PO QDAY 06/12/21 06/12/21 Unknown History Cholecalciferol Vit D3 [Vitamin D3 4,000 unit PO QDAY 06/12/21 06/12/21 Unknown History 1,000 UNIT TAB] Clopidogrel [Plavix] 75 mg PO QDAY 06/12/21 06/12/21 Unknown History Memantine [Namenda] 5 mg PO BID 06/12/21 06/12/21 Unknown History Mirtazapine [Remeron] 15 mg PO HS 06/12/21 06/12/21 Unknown History QUEtiapine [SEROquel] 100 mg PO HS 06/12/21 06/12/21 Unknown History Quetiapine Fumarate [SEROquel] 50 mg PO QDAY 06/12/21 06/12/21 Unknown History donepeziL [Aricept] 10 mg PO HS 06/12/21 06/12/21 Unknown History Active Meds: Active Medications Aspirin (Aspirin Ec 81 Mg Tab) 81 mg PO QDAY [facility] Last Admin: 06/23/21 09:10 Dose: 81 mg Cholecalciferol (Cholecalciferol (Vit D3) 1000 Unit (25 Mcg) Tab) 4,000 unit PO QDAY [facility] Last Admin: 06/23/21 09:11 Dose: 4,000 unit Clonazepam (Clonazepam 0.5 Mg Tab) 0.5 mg PO BID [facility] Last Admin: 06/23/21 09:10 Dose: 0.5 mg Clopidogrel Bisulfate (Clopidogrel 75 Mg Tab) 75 mg PO QDAY [facility] Last Admin: 06/23/21 09:11 Dose: 75 mg Donepezil HCl (Donepezil 10 Mg Tab) [address] [facility] Last Admin: 06/22/21 21:56 Dose: 10 mg Loperamide HCl (Loperamide 2 Mg Cap) 2 mg PO Q6H PRN PRN Reason: Diarrhea Memantine (Memantine 5 Mg Tab) 5 mg PO BID [facility] Last Admin: 06/23/21 09:11 Dose: 5 mg Mirtazapine (Mirtazapine 15 Mg Tab) 15 mg [address] [facility] Last Admin: 06/22/21 21:55 Dose: 15 mg Quetiapine Fumarate (Quetiapine 100 Mg Tab) 300 mg PO QHS [facility] Last Admin: 06/22/21 21:56 Dose: 300 mg Quetiapine Fumarate (Quetiapine 100 Mg Tab) 100 mg PO DAILY [facility] Last Admin: 06/23/21 09:10 Dose: 100 mg Valproic Acid (Valproic Acid 250 Mg/5 Ml Oral Liqd) 250 mg PO BID [facility] Last Admin: 06/23/21 09:10 Dose: 250 mg Ziprasidone (Ziprasidone Mesylate 20 Mg Vial) 20 mg IM Q4H PRN PRN Reason: Agitation Last Admin: 06/17/21 11:04 Dose: 20 mg Results - Results Labs/Vitals: Laboratory Last Values WBC 4.6 K/mm3 (4.5-11.0) 06/12/21 23:42 RBC 3.08 M/mm3 (3.65-5.03) L 06/12/21 23:42 Hgb 9.8 gm/dl (11.8-15.2) L 06/12/21 23:42 Hct 30.3 % (35.5-45.6) L 06/12/21 23:42 MCV 98 fl (84-94) H 06/12/21 23:42 MCH 32 pg (28-32) 06/12/21 23:42 MCHC 32 % (32-34) 06/12/21 23:42 RDW 16.4 % (13.2-15.2) H 06/12/21 23:42 Plt Count 269 K/mm3 (140-440) 06/12/21 23:42 Lymph % (Auto) 27.4 % (13.4-35.0) 06/12/21 23:42 [place] % (Auto) 9.4 % (0.0-7.3) H 06/12/21 23:42 Eos % (Auto) 1.4 % (0.0-4.3) 06/12/21 23:42 Baso % (Auto) 0.5 % (0.0-1.8) 06/12/21 23:42 Lymph # (Auto) 1.2 K/mm3 (1.2-5.4) 06/12/21 23:42 [place] # (Auto) 0.4 K/mm3 (0.0-0.8) 06/12/21 23:42 Eos # (Auto) 0.1 K/mm3 (0.0-0.4) 06/12/21 23: Baso # (Auto) 0.0 K/mm3 (0.0-0.1) 06/12/21 23:42 Seg Neutrophils % 61.3 % (40.0-70.0) 06/12/21 23:42 Seg Neutrophils # 2.8 K/mm3 (1.8-7.7) 06/12/21 23:42 Sodium 138 mmol/L (137-145) 06/12/21 23:42 Potassium 4.2 mmol/L (3.6-5.0) 06/12/21 23:42 Chloride 103.5 mmol/L (98-107) 06/12/21 23:42 Carbon Dioxide 27 mmol/L (22-30) 06/12/21 23:42 Anion Gap 12 mmol/L 06/12/21 23:42 BUN 22 mg/dL (9-20) H 06/12/21 23:42 Creatinine 0.7 mg/dL (0.8-1.3) L 06/12/21 23:42 Estimated GFR > 60 ml/min 06/12/21 23:42 BUN/Creatinine Ratio 31 % 06/12/21 23:42 Glucose 95 mg/dL (75-100) 06/12/21 23:42 Hemoglobin A1c 5.6 % (4-6) 06/12/21 23:42 Calcium 8.6 mg/dL (8.4-10.2) 06/12/21 23:42 Total Bilirubin 0.20 mg/dL (0.1-1.2) 06/12/21 23:42 AST 24 units/L (5-40) 06/12/21 23:42 ALT 29 units/L (7-56) 06/12/21 23:42 Alkaline Phosphatase 96 units/L (35-129) 06/12/21 23:42 Total Protein 7.5 g/dL (6.3-8.2) 06/12/21 23:42 Albumin 3.4 g/dL (3.9-5) L 06/12/21 23:42 Albumin/Globulin Ratio 0.8 % 06/12/21 23:42 Triglycerides 50 mg/dL (2-149) 06/12/21 23:42 Cholesterol 164 mg/dL (50-199) 06/12/21 23:42 LDL Cholesterol Direct 93 mg/dL (50-130) 06/12/21 23:42 HDL Cholesterol 65 mg/dL (40-59) H 06/12/21 23:42 Cholesterol/HDL Ratio 2.52 % 06/12/21 23:42 TSH 2.150 mlU/mL (0.270-4.200) 06/12/21 23:42 Hepatitis A IgM Ab Non-reactive (NonReactive) 06/12/21 23:42 Hep Bs Antigen Non-reactive (Negative) 06/12/21 23:42 Hep B Core IgM Ab Non-reactive (NonReactive) 06/12/21 23:42 Hepatitis C Antibody Non-reactive (NonReactive) 06/12/21 23:42 Last Vital Signs Temp 97.9 F 06/22/21 20:04 Pulse 99 H 06/22/21 20:04 Resp 17 06/22/21 20:04 BP 108/57 06/22/21 20:04 Pulse Ox 95 06/22/21 20:04
[2021-06-23] MEDS: MIRTAZAPINE 15 MG TAB PO SCH (21:15)
[2021-06-23] MEDS: DONEPEZIL 10 MG TAB PO SCH (21:16)
--- NOTE | 2021-06-24 10:42 | Progress Note ---
Subjective Date of service: 06/24/21 Principal diagnosis: Dementia with Behavioral Disturbance Subjective Comment: The patient was seen today. He is sitting in assessment room eating. He is rambling, but redirectable. He is observed talking to himself. He denies SI/HI. Staff says he has been pacing, and disorganized. REVIEW OF SYSTEMS Constitutional: Negative for weight loss ENT: Negative for stridor Respiratory: Negative for cough or hemoptysis All other systems reviewed and are negative MENTAL STATUS EXAMINATION Unable to assess Assessment (1)Dementia with Behavioral Disturbance Current Visit: Yes Status: Acute Treatment Plan Patient admitted for inpatient psychiatric evaluation, medication adjustment and close monitoring The patient's behavior, mood, sleep and appetite will be closely monitored. Patient enrolled in individual and group therapeutic sessions and encouraged to attend. Patient provided with a safe and structured environment. Patient's physical health needs will be addressed by the Hospitalist. Hospitalist Consulted Labs including CBC, CMP, Lipid profile and Hemoglobin A1C levels ordered for baseline reference Social Assessment will be completed and the Vest Busheler will work with patient and family to ensure a suitable and safe disposition Medication adjustment will be made as clinically indicated Increase Valproic acid 250mg po TID yesterday Increased morning Seroquel 200mg po daily in addition to nighttime dose. Usual Wellness Faith/Preservation: - Start Trazodone 50 mg po QHS & 50 mg po QHS PRN between 10 PM & 2 AM for insomnia - Start Melatonin 5 mg po QHS to promote circadian rhythm The patient agreed on the treatment plan, understood the risk, benefit, alternative treatment, potential consequence of no treatment, and gave informed consent. Estimated days: 7 Post hospital care: primary care provider, psychiatric provider Case staffed with Dr. Carrion Medications and Allergies Allergies Allergy/AdvReac Type Severity Reaction Status Date / Time morphine Allergy Unknown Verified 06/12/21 22:36 Home Medications Medication Instructions Recorded Confirmed Last Taken Type Aspirin EC [Halfprin EC] 81 mg PO QDAY 06/12/21 06/12/21 Unknown History Cholecalciferol Vit D3 [Vitamin D3 4,000 unit PO QDAY 06/12/21 06/12/21 Unknown History 1,000 UNIT TAB] Clopidogrel [Plavix] 75 mg PO QDAY 06/12/21 06/12/21 Unknown History Memantine [Namenda] 5 mg PO BID 06/12/21 06/12/21 Unknown History Mirtazapine [Remeron] 15 mg PO HS 06/12/21 06/12/21 Unknown History QUEtiapine [SEROquel] 100 mg PO HS 06/12/21 06/12/21 Unknown History Quetiapine Fumarate [SEROquel] 50 mg PO QDAY 06/12/21 06/12/21 Unknown History donepeziL [Aricept] 10 mg PO HS 06/12/21 06/12/21 Unknown History Active Meds: Active Medications Aspirin (Aspirin Ec 81 Mg Tab) 81 mg PO QDAY [facility] Last Admin: 06/23/21 09:10 Dose: 81 mg Cholecalciferol (Cholecalciferol (Vit D3) 1000 Unit (25 Mcg) Tab) 4,000 unit PO QDAY [facility] Last Admin: 06/23/21 09:11 Dose: 4,000 unit Clonazepam (Clonazepam 0.5 Mg Tab) 0.5 mg PO BID [facility] Last Admin: 06/23/21 21:15 Dose: 0.5 mg Clopidogrel Bisulfate (Clopidogrel 75 Mg Tab) 75 mg PO QDAY [facility] Last Admin: 06/23/21 09:11 Dose: 75 mg Donepezil HCl (Donepezil 10 Mg Tab) 10 mg PO [facility] Last Admin: 06/23/21 21:16 Dose: 10 mg Loperamide HCl (Loperamide 2 Mg Cap) 2 mg PO Q6H PRN PRN Reason: Diarrhea Memantine (Memantine 5 Mg Tab) 5 mg PO BID [facility] Last Admin: 06/23/21 21:15 Dose: 5 mg Mirtazapine (Mirtazapine 15 Mg Tab) 15 mg PO [facility] Last Admin: 06/23/21 21:15 Dose: 15 mg Quetiapine Fumarate (Quetiapine 100 Mg Tab) 300 mg PO QHS [facility] Last Admin: 06/23/21 21:15 Dose: 300 mg Valproic Acid (Valproic Acid 250 Mg/5 Ml Oral Liqd) 250 mg PO TID [facility] Last Admin: 06/23/21 21:15 Dose: 250 mg Ziprasidone (Ziprasidone Mesylate 20 Mg Vial) 20 mg IM Q4H PRN PRN Reason: Agitation Last Admin: 06/17/21 11:04 Dose: 20 mg Results - Results Labs/Vitals: Laboratory Last Values WBC 4.6 K/mm3 (4.5-11.0) 06/12/21 23: RBC 3.08 M/mm3 (3.65-5.03) L 06/12/21 23: Hgb 9.8 gm/dl (11.8-15.2) L 06/12/21 23:42 Hct 30.3 % (35.5-45.6) L 06/12/21 23: MCV 98 fl (84-94) H 06/12/21 23: MCH 32 pg (28-32) 06/12/21 23: MCHC 32 % (32-34) 06/12/21: RDW 16.4 % (13.2-15.2) H 06/12/21: Plt Count 269 K/mm3 (140-440) 06/12/21: Lymph % (Auto) 27.4 % (13.4-35.0) 06/12/21: [place] % (Auto) 9.4 % (0.0-7.3) H 06/12/21: Eos % (Auto) 1.4 % (0.0-4.3) 06/12/21: Baso % (Auto) 0.5 % (0.0-1.8) 06/12/21: Lymph # (Auto) 1.2 K/mm3 (1.2-5.4) 06/12/21: [place] # (Auto) 0.4 K/mm3 (0.0-0.8) 06/12/21: Eos # (Auto) 0.1 K/mm3 (0.0-0.4) 06/12/21: Baso # (Auto) 0.0 K/mm3 (0.0-0.1) 06/12/21: Seg Neutrophils % 61.3 % (40.0-70.0) 06/12/21: Seg Neutrophils # 2.8 K/mm3 (1.8-7.7) 06/12/21 23: Sodium 138 mmol/L (137-145) 06/12/21: Potassium 4.2 mmol/L (3.6-5.0) 06/12/21: Chloride 103.5 mmol/L (98-107) 06/12/21 23:42 Carbon Dioxide 27 mmol/L (22-30) 06/12/21 23:42 Anion Gap 12 mmol/L 06/12/21 23:42 BUN 22 mg/dL (9-20) H 06/12/21 23:42 Creatinine 0.7 mg/dL (0.8-1.3) L 06/12/21 23:42 Estimated GFR > 60 ml/min 06/12/21 23:42 BUN/Creatinine Ratio 31 % 06/12/21 23:42 Glucose 95 mg/dL (75-100) 06/12/21 23:42 Hemoglobin A1c 5.6 % (4-6) 06/12/21 23:42 Calcium 8.6 mg/dL (8.4-10.2) 06/12/21 23:42 Total Bilirubin 0.20 mg/dL (0.1-1.2) 06/12/21 23:42 AST 24 units/L (5-40) 06/12/21 23:42 ALT 29 units/L (7-56) 06/12/21 23:42 Alkaline Phosphatase 96 units/L (35-129) 06/12/21 23:42 Total Protein 7.5 g/dL (6.3-8.2) 06/12/21 23:42 Albumin 3.4 g/dL (3.9-5) L 06/12/21 23:42 Albumin/Globulin Ratio 0.8 % 06/12/21 23:42 Triglycerides 50 mg/dL (2-149) 06/12/21 23:42 Cholesterol 164 mg/dL (50-199) 06/12/21 23:42 LDL Cholesterol Direct 93 mg/dL (50-130) 06/12/21 23:42 HDL Cholesterol 65 mg/dL (40-59) H 06/12/21 23:42 Cholesterol/HDL Ratio 2.52 % 06/12/21 23:42 TSH 2.150 mlU/mL (0.270-4.200) 06/12/21 23:42 Hepatitis A IgM Ab Non-reactive (NonReactive) 06/12/21 23:42 Hep Bs Antigen Non-reactive (Negative) 06/12/21 23:42 Hep B Core IgM Ab Non-reactive (NonReactive) 06/12/21 23:42 Hepatitis C Antibody Non-reactive (NonReactive) 06/12/21 23:42 Last Vital Signs Temp 97.3 F L 06/23/21 20:01 Pulse 88 06/23/21 20:01 Resp 16 06/23/21 20:01 BP 112/77 06/23/21 20:01 Pulse Ox 96 06/23/21 20:01
[2021-06-24] MEDS: CHOLECALCIFEROL (VIT D3) 1000 UNIT (25 mcg) TAB PO SCH (11:00)
[2021-06-24] MEDS: clonazePAM 0.5 MG TAB PO SCH ×2 (11:00→21:33)
[2021-06-24] MEDS: QUEtiapine 100 MG TAB PO SCH ×2 (11:00→21:33)
[2021-06-24] MEDS: MEMANTINE 5 MG TAB PO SCH ×2 (11:00→21:33)
[2021-06-24] MEDS: ASPIRIN EC 81 MG TAB PO SCH (11:00)
[2021-06-24] MEDS: CLOPIDOGREL 75 MG TAB PO SCH (11:01)
[2021-06-24] MEDS: QUEtiapine 200 MG TAB PO SCH (11:02)
[2021-06-24] MEDS: VALPROIC ACID 250 MG/5 ML ORAL LIQD PO SCH ×3 (11:04→21:32)
[2021-06-24] MEDS: DONEPEZIL 10 MG TAB PO SCH (21:33)
[2021-06-24] MEDS: MIRTAZAPINE 15 MG TAB PO SCH (21:33)
--- NOTE | 2021-06-25 09:30 | Progress Note ---
Subjective Date of service: 06/25/21 Principal diagnosis: Dementia with Behavioral Disturbance Subjective Comment: The patient was seen today. He is pacing and talking less. He is still rambling at times. He is in his room and is more redirectible. He says he's doing fine. The patient says he slept good. He then says "about 10 hours." He denies SI/HI. He says "no, I'm not going to do anything like that." He denies hallucinations. REVIEW OF SYSTEMS Constitutional: Negative for weight loss ENT: Negative for stridor Respiratory: Negative for cough or hemoptysis All other systems reviewed and are negative MENTAL STATUS EXAMINATION Unable to assess Assessment (1)Dementia with Behavioral Disturbance Current Visit: Yes Status: Acute Treatment Plan Patient admitted for inpatient psychiatric evaluation, medication adjustment and close monitoring The patient's behavior, mood, sleep and appetite will be closely monitored. Patient enrolled in individual and group therapeutic sessions and encouraged to attend. Patient provided with a safe and structured environment. Patient's physical health needs will be addressed by the Hospitalist. Hospitalist Consulted Labs including CBC, CMP, Lipid profile and Hemoglobin A1C levels ordered for baseline reference Social Assessment will be completed and the Adjunct Professor [employer] will work with patient and family to ensure a suitable and safe disposition Medication adjustment will be made as clinically indicated Continue Valproic acid 250mg po TID Increased morning Seroquel 200mg po daily in addition to nighttime dose yesterday No changes made today Usual Wellness Sikhism/Preservation: - Start Trazodone 50 mg po QHS & 50 mg po QHS PRN between 10 PM & 2 AM for insomnia - Start Melatonin 5 mg po QHS to promote circadian rhythm The patient agreed on the treatment plan, understood the risk, benefit, alternative treatment, potential consequence of no treatment, and gave informed consent. Estimated days: 7 Post hospital care: primary care provider, psychiatric provider Case staffed with Dr. Carrion Medications and Allergies Allergies Allergy/AdvReac Type Severity Reaction Status Date / Time morphine Allergy Unknown Verified 06/12/21 22:36 Home Medications Medication Instructions Recorded Confirmed Last Taken Type Aspirin EC [Halfprin EC] 81 mg PO QDAY 06/12/21 06/12/21 Unknown History Cholecalciferol Vit D3 [Vitamin D3 4,000 unit PO QDAY 06/12/21 06/12/21 Unknown History 1,000 UNIT TAB] Clopidogrel [Plavix] 75 mg PO QDAY 06/12/21 06/12/21 Unknown History Memantine [Namenda] 5 mg PO BID 06/12/21 06/12/21 Unknown History Mirtazapine [Remeron] 15 mg PO HS 06/12/21 06/12/21 Unknown History QUEtiapine [SEROquel] 100 mg PO HS 06/12/21 06/12/21 Unknown History Quetiapine Fumarate [SEROquel] 50 mg PO QDAY 06/12/21 06/12/21 Unknown History donepeziL [Aricept] 10 mg PO HS 06/12/21 06/12/21 Unknown History Active Meds: Active Medications Aspirin (Aspirin Ec 81 Mg Tab) 81 mg PO QDAY [facility] Last Admin: 06/24/21 11:00 Dose: 81 mg Cholecalciferol (Cholecalciferol (Vit D3) 1000 Unit (25 Mcg) Tab) 4,000 unit PO QDAY [facility] Last Admin: 06/24/21 11:00 Dose: 4,000 unit Clonazepam (Clonazepam 0.5 Mg Tab) 0.5 mg PO BID [facility] Last Admin: 06/24/21 21:33 Dose: 0.5 mg Clopidogrel Bisulfate (Clopidogrel 75 Mg Tab) 75 mg PO QDAY [facility] Last Admin: 06/24/21 11:01 Dose: 75 mg Donepezil HCl (Donepezil 10 Mg Tab) 10 mg PO [facility] Last Admin: 06/24/21 21:33 Dose: 10 mg Loperamide HCl (Loperamide 2 Mg Cap) 2 mg PO Q6H PRN PRN Reason: Diarrhea Memantine (Memantine 5 Mg Tab) 5 mg PO BID [facility] Last Admin: 06/24/21 21:33 Dose: 5 mg Mirtazapine (Mirtazapine 15 Mg Tab) 15 mg PO [facility] Last Admin: 06/24/21 21:33 Dose: 15 mg Quetiapine Fumarate (Quetiapine 100 Mg Tab) 300 mg PO QHS [facility] Last Admin: 06/24/21 21:33 Dose: 300 mg Quetiapine Fumarate (Quetiapine 200 Mg Tab) 200 mg PO DAILY [facility] Last Admin: 06/24/21 11:02 Dose: 200 mg Valproic Acid (Valproic Acid 250 Mg/5 Ml Oral Liqd) 250 mg PO TID [facility] Last Admin: 06/24/21 21:32 Dose: 250 mg Ziprasidone (Ziprasidone Mesylate 20 Mg Vial) 20 mg IM Q4H PRN PRN Reason: Agitation Last Admin: 06/17/21 11:04 Dose: 20 mg Results - Results Labs/Vitals: Laboratory Last Values WBC 4.6 K/mm3 (4.5-11.0) 06/12/21 23:42 RBC 3.08 M/mm3 (3.65-5.03) L 06/12/21 23:42 Hgb 9.8 gm/dl (11.8-15.2) L 06/12/21 23:42 Hct 30.3 % (35.5-45.6) L 06/12/21 23:42 MCV 98 fl (84-94) H 06/12/21 23:42 MCH 32 pg (28-32) 06/12/21 23:42 MCHC 32 % (32-34) 06/12/21 23:42 RDW 16.4 % (13.2-15.2) H 06/12/21 23:42 Plt Count 269 K/mm3 (140-440) 06/12/21 23:42 Lymph % (Auto) 27.4 % (13.4-35.0) 06/12/21 23:42 [place] % (Auto) 9.4 % (0.0-7.3) H 06/12/21 23:42 Eos % (Auto) 1.4 % (0.0-4.3) 06/12/21 23:42 Baso % (Auto) 0.5 % (0.0-1.8) 06/12/21 23:42 Lymph # (Auto) 1.2 K/mm3 (1.2-5.4) 06/12/21 23:42 [place] # (Auto) 0.4 K/mm3 (0.0-0.8) 06/12/21 23:42 Eos # (Auto) 0.1 K/mm3 (0.0-0.4) 06/12/21 23:42 Baso # (Auto) 0.0 K/mm3 (0.0-0.1) 06/12/21 23:42 Seg Neutrophils % 61.3 % (40.0-70.0) 06/12/21 23:42 Seg Neutrophils # 2.8 K/mm3 (1.8-7.7) 06/12/21 23:42 Sodium 138 mmol/L (137-145) 06/12/21 23:42 Potassium 4.2 mmol/L (3.6-5.0) 06/12/21 23:42 Chloride 103.5 mmol/L (98-107) 06/12/21 23:42 Carbon Dioxide 27 mmol/L (22-30) 06/12/21 23:42 Anion Gap 12 mmol/L 06/12/21 23:42 BUN 22 mg/dL (9-20) H 06/12/21 23:42 Creatinine 0.7 mg/dL (0.8-1.3) L 06/12/21 23:42 Estimated GFR > 60 ml/min 06/12/21 23:42 BUN/Creatinine Ratio 31 % 06/12/21 23:42 Glucose 95 mg/dL (75-100) 06/12/21 23:42 Hemoglobin A1c 5.6 % (4-6) 06/12/21 23:42 Calcium 8.6 mg/dL (8.4-10.2) 06/12/21 23:42 Total Bilirubin 0.20 mg/dL (0.1-1.2) 06/12/21 23:42 AST 24 units/L (5-40) 06/12/21 23:42 ALT 29 units/L (7-56) 06/12/21 23:42 Alkaline Phosphatase 96 units/L (35-129) 06/12/21 23:42 Total Protein 7.5 g/dL (6.3-8.2) 06/12/21 23:42 Albumin 3.4 g/dL (3.9-5) L 06/12/21 23:42 Albumin/Globulin Ratio 0.8 % 06/12/21 23:42 Triglycerides 50 mg/dL (2-149) 06/12/21 23:42 Cholesterol 164 mg/dL (50-199) 06/12/21 23:42 LDL Cholesterol Direct 93 mg/dL (50-130) 06/12/21 23:42 HDL Cholesterol 65 mg/dL (40-59) H 06/12/21 23:42 Cholesterol/HDL Ratio 2.52 % 06/12/21 23:42 TSH 2.150 mlU/mL (0.270-4.200) 06/12/21 23:42 Hepatitis A IgM Ab Non-reactive (NonReactive) 06/12/21 23:42 Hep Bs Antigen Non-reactive (Negative) 06/12/21 23:42 Hep B Core IgM Ab Non-reactive (NonReactive) 06/12/21 23:42 Hepatitis C Antibody Non-reactive (NonReactive) 06/12/21 23:42 Last Vital Signs Temp 98.2 F 06/24/21 19:57 Pulse 103 H 06/24/21 19:57 Resp 17 06/24/21 19:57 BP 114/70 06/24/21 19:57 Pulse Ox 95 06/24/21 19:57
[2021-06-25] MEDS: VALPROIC ACID 250 MG/5 ML ORAL LIQD PO SCH ×3 (09:42→21:33)
[2021-06-25] MEDS: clonazePAM 0.5 MG TAB PO SCH ×2 (09:43→21:33)
[2021-06-25] MEDS: MEMANTINE 5 MG TAB PO SCH ×2 (09:43→21:33)
[2021-06-25] MEDS: CHOLECALCIFEROL (VIT D3) 1000 UNIT (25 mcg) TAB PO SCH (09:43)
[2021-06-25] MEDS: CLOPIDOGREL 75 MG TAB PO SCH (09:43)
[2021-06-25] MEDS: ASPIRIN EC 81 MG TAB PO SCH (09:43)
[2021-06-25] MEDS: QUEtiapine 200 MG TAB PO SCH (09:43)
[2021-06-25] MEDS: QUEtiapine 100 MG TAB PO SCH (21:33)
[2021-06-25] MEDS: MIRTAZAPINE 15 MG TAB PO SCH (21:33)
[2021-06-25] MEDS: DONEPEZIL 10 MG TAB PO SCH (21:33)
[2021-06-26] MEDS: ASPIRIN EC 81 MG TAB PO SCH (09:12)
[2021-06-26] MEDS: VALPROIC ACID 250 MG/5 ML ORAL LIQD PO SCH ×3 (09:12→21:04)
[2021-06-26] MEDS: CLOPIDOGREL 75 MG TAB PO SCH (09:12)
[2021-06-26] MEDS: CHOLECALCIFEROL (VIT D3) 1000 UNIT (25 mcg) TAB PO SCH (09:12)
[2021-06-26] MEDS: MEMANTINE 5 MG TAB PO SCH ×2 (09:12→21:05)
[2021-06-26] MEDS: clonazePAM 0.5 MG TAB PO SCH ×2 (09:12→21:05)
[2021-06-26] MEDS: QUEtiapine 200 MG TAB PO SCH (09:13)
--- NOTE | 2021-06-26 10:09 | Progress Note ---
Subjective Date of service: 06/26/21 Principal diagnosis: Dementia with Behavioral Disturbance Subjective Comment: The patient was seen today. He is in the dayroom looking through some papers. He denies SI/HI or hallucinations. He is rambling, but he's redirectible. REVIEW OF SYSTEMS Constitutional: Negative for weight loss ENT: Negative for stridor Respiratory: Negative for cough or hemoptysis All other systems reviewed and are negative MENTAL STATUS EXAMINATION Unable to assess Assessment (1)Dementia with Behavioral Disturbance Current Visit: Yes Status: Acute Treatment Plan Patient admitted for inpatient psychiatric evaluation, medication adjustment and close monitoring The patient's behavior, mood, sleep and appetite will be closely monitored. Patient enrolled in individual and group therapeutic sessions and encouraged to attend. Patient provided with a safe and structured environment. Patient's physical health needs will be addressed by the Hospitalist. Hospitalist Consulted Labs including CBC, CMP, Lipid profile and Hemoglobin A1C levels ordered for baseline reference Social Assessment will be completed and the Nurse Leader will work with patient and family to ensure a suitable and safe disposition Medication adjustment will be made as clinically indicated Continue Valproic acid 250mg po TID Increased morning Seroquel 200mg po daily in addition to nighttime dose Usual Wellness Sikhism/Preservation: - Start Trazodone 50 mg po QHS & 50 mg po QHS PRN between 10 PM & 2 AM for insomnia - Start Melatonin 5 mg po QHS to promote circadian rhythm The patient agreed on the treatment plan, understood the risk, benefit, alternative treatment, potential consequence of no treatment, and gave informed consent. Estimated days: 7 Post hospital care: primary care provider, psychiatric provider Case staffed with Dr. Carrion Medications and Allergies Allergies Allergy/AdvReac Type Severity Reaction Status Date / Time morphine Allergy Unknown Verified 06/12/21 22:36 Home Medications Medication Instructions Recorded Confirmed Last Taken Type Aspirin EC [Halfprin EC] 81 mg PO QDAY 06/12/21 06/12/21 Unknown History Cholecalciferol Vit D3 [Vitamin D3 4,000 unit PO QDAY 06/12/21 06/12/21 Unknown History 1,000 UNIT TAB] Clopidogrel [Plavix] 75 mg PO QDAY 06/12/21 06/12/21 Unknown History Memantine [Namenda] 5 mg PO BID 06/12/21 06/12/21 Unknown History Mirtazapine [Remeron] 15 mg PO HS 06/12/21 06/12/21 Unknown History QUEtiapine [SEROquel] 100 mg PO HS 06/12/21 06/12/21 Unknown History Quetiapine Fumarate [SEROquel] 50 mg PO QDAY 06/12/21 06/12/21 Unknown History donepeziL [Aricept] 10 mg PO HS 06/12/21 06/12/21 Unknown History Active Meds: Active Medications Aspirin (Aspirin Ec 81 Mg Tab) 81 mg PO QDAY [facility] Last Admin: 06/26/21 09:12 Dose: 81 mg Cholecalciferol (Cholecalciferol (Vit D3) 1000 Unit (25 Mcg) Tab) 4,000 unit PO QDAY [facility] Last Admin: 06/26/21 09:12 Dose: 4,000 unit Clonazepam (Clonazepam 0.5 Mg Tab) 0.5 mg PO BID [facility] Last Admin: 06/26/21 09:12 Dose: 0.5 mg Clopidogrel Bisulfate (Clopidogrel 75 Mg Tab) 75 mg PO QDAY [facility] Last Admin: 06/26/21 09:12 Dose: 75 mg Donepezil HCl (Donepezil 10 Mg Tab) 10 mg PO [facility] Last Admin: 06/25/21 21:33 Dose: 10 mg Loperamide HCl (Loperamide 2 Mg Cap) 2 mg PO Q6H PRN PRN Reason: Diarrhea Memantine (Memantine 5 Mg Tab) 5 mg PO BID [facility] Last Admin: 06/26/21 09:12 Dose: 5 mg Mirtazapine (Mirtazapine 15 Mg Tab) 15 mg PO [facility] Last Admin: 06/25/21 21:33 Dose: 15 mg Quetiapine Fumarate (Quetiapine 100 Mg Tab) 300 mg PO QHS [facility] Last Admin: 06/25/21 21:33 Dose: 300 mg Quetiapine Fumarate (Quetiapine 200 Mg Tab) 200 mg PO DAILY [facility] Last Admin: 06/26/21 09:13 Dose: 200 mg Valproic Acid (Valproic Acid 250 Mg/5 Ml Oral Liqd) 250 mg PO TID [facility] Last Admin: 06/26/21 09:12 Dose: 250 mg Ziprasidone (Ziprasidone Mesylate 20 Mg Vial) 20 mg IM Q4H PRN PRN Reason: Agitation Last Admin: 06/17/21 11:04 Dose: 20 mg Results - Results Labs/Vitals: Laboratory Last Values WBC 4.6 K/mm3 (4.5-11.0) 06/12/21 23:42 RBC 3.08 M/mm3 (3.65-5.03) L 06/12/21 23:42 Hgb 9.8 gm/dl (11.8-15.2) L 06/12/21 23:42 Hct 30.3 % (35.5-45.6) L 06/12/21 23:42 MCV 98 fl (84-94) H 06/12/21 23:42 MCH 32 pg (28-32) 06/12/21 23:42 MCHC 32 % (32-34) 06/12/21 23:42 RDW 16.4 % (13.2-15.2) H 06/12/21 23:42 Plt Count 269 K/mm3 (140-440) 06/12/21 23:42 Lymph % (Auto) 27.4 % (13.4-35.0) 06/12/21 23:42 [place] % (Auto) 9.4 % (0.0-7.3) H 06/12/21 23:42 Eos % (Auto) 1.4 % (0.0-4.3) 06/12/21 23:42 Baso % (Auto) 0.5 % (0.0-1.8) 06/12/21 23:42 Lymph # (Auto) 1.2 K/mm3 (1.2-5.4) 06/12/21 23:42 [place] # (Auto) 0.4 K/mm3 (0.0-0.8) 06/12/21 23:42 Eos # (Auto) 0.1 K/mm3 (0.0-0.4) 06/12/21 23:42 Baso # (Auto) 0.0 K/mm3 (0.0-0.1) 06/12/21 23:42 Seg Neutrophils % 61.3 % (40.0-70.0) 06/12/21 23:42 Seg Neutrophils # 2.8 K/mm3 (1.8-7.7) 06/12/21 23:42 Sodium 138 mmol/L (137-145) 06/12/21 23:42 Potassium 4.2 mmol/L (3.6-5.0) 02/14/22 23:42 Chloride 103.5 mmol/L (98-107) 06/12/21 23:42 Carbon Dioxide 27 mmol/L (22-30) 06/12/21 23:42 Anion Gap 12 mmol/L 06/12/21 23:42 BUN 22 mg/dL (9-20) H 06/12/21 23:42 Creatinine 0.7 mg/dL (0.8-1.3) L 06/12/21 23:42 Estimated GFR > 60 ml/min 06/12/21 23:42 BUN/Creatinine Ratio 31 % 06/12/21 23:42 Glucose 95 mg/dL (75-100) 06/12/21 23:42 Hemoglobin A1c 5.6 % (4-6) 06/12/21 23:42 Calcium 8.6 mg/dL (8.4-10.2) 06/12/21 23:42 Total Bilirubin 0.20 mg/dL (0.1-1.2) 06/12/21 23:42 AST 24 units/L (5-40) 06/12/21 23:42 ALT 29 units/L (7-56) 06/12/21 23:42 Alkaline Phosphatase 96 units/L (35-129) 06/12/21 23:42 Total Protein 7.5 g/dL (6.3-8.2) 06/12/21 23:42 Albumin 3.4 g/dL (3.9-5) L 06/12/21 23:42 Albumin/Globulin Ratio 0.8 % 06/12/21 23:42 Triglycerides 50 mg/dL (2-149) 06/12/21 23:42 Cholesterol 164 mg/dL (50-199) 06/12/21 23:42 LDL Cholesterol Direct 93 mg/dL (50-130) 06/12/21 23:42 HDL Cholesterol 65 mg/dL (40-59) H 06/12/21 23:42 Cholesterol/HDL Ratio 2.52 % 06/12/21 23:42 TSH 2.150 mlU/mL (0.270-4.200) 06/12/21 23:42 Hepatitis A IgM Ab Non-reactive (NonReactive) 06/12/21 23:42 Hep Bs Antigen Non-reactive (Negative) 06/12/21 23:42 Hep B Core IgM Ab Non-reactive (NonReactive) 06/12/21 23:42 Hepatitis C Antibody Non-reactive (NonReactive) 06/12/21 23:42 Last Vital Signs Temp 99.1 F 06/25/21 19:36 Pulse 110 H 06/25/21 19:36 Resp 17 06/25/21 19:36 BP 104/56 06/25/21 19:36 Pulse Ox 94 06/25/21 19:36
[2021-06-26] MEDS: QUEtiapine 100 MG TAB PO SCH (21:05)
[2021-06-26] MEDS: MIRTAZAPINE 15 MG TAB PO SCH (21:05)
[2021-06-26] MEDS: DONEPEZIL 10 MG TAB PO SCH (21:05)
[2021-06-27] MEDS: VALPROIC ACID 250 MG/5 ML ORAL LIQD PO SCH ×3 (08:55→20:55)
--- NOTE | 2021-06-27 08:59 | Progress Note ---
Subjective Date of service: 06/27/21 Principal diagnosis: Dementia with Behavioral Disturbance Subjective Comment: The patient was seen today. He is sitting in his room on the bed looking through his Bible. He tells me he's reading the Bible and finished with his food. He is asking for Ensure. He is rambling at times, but much better. He denies SI/HI or hallucinations of any kind. REVIEW OF SYSTEMS Constitutional: Negative for weight loss ENT: Negative for stridor Respiratory: Negative for cough or hemoptysis All other systems reviewed and are negative MENTAL STATUS EXAMINATION Unable to assess Assessment (1)Dementia with Behavioral Disturbance Current Visit: Yes Status: Acute Treatment Plan Patient admitted for inpatient psychiatric evaluation, medication adjustment and close monitoring The patient's behavior, mood, sleep and appetite will be closely monitored. Patient enrolled in individual and group therapeutic sessions and encouraged to attend. Patient provided with a safe and structured environment. Patient's physical health needs will be addressed by the Hospitalist. Hospitalist Consulted Labs including CBC, CMP, Lipid profile and Hemoglobin A1C levels ordered for baseline reference Social Assessment will be completed and the Funnel Coater will work with patient and family to ensure a suitable and safe disposition Medication adjustment will be made as clinically indicated Continue Valproic acid 250mg po TID Continue morning Seroquel 200mg po daily in addition to nighttime dose Usual Wellness Jew/Preservation: - Start Trazodone 50 mg po QHS & 50 mg po QHS PRN between 10 PM & 2 AM for insomnia - Start Melatonin 5 mg po QHS to promote circadian rhythm The patient agreed on the treatment plan, understood the risk, benefit, alternative treatment, potential consequence of no treatment, and gave informed consent. Estimated days: 7 Post hospital care: primary care provider, psychiatric provider Case staffed with Dr. Carrion Medications and Allergies Allergies Allergy/AdvReac Type Severity Reaction Status Date / Time morphine Allergy Unknown Verified 06/12/21 22:36 Home Medications Medication Instructions Recorded Confirmed Last Taken Type Aspirin EC [Halfprin EC] 81 mg PO QDAY 06/12/21 06/12/21 Unknown History Cholecalciferol Vit D3 [Vitamin D3 4,000 unit PO QDAY 06/12/21 06/12/21 Unknown History 1,000 UNIT TAB] Clopidogrel [Plavix] 75 mg PO QDAY 06/12/21 06/12/21 Unknown History Memantine [Namenda] 5 mg PO BID 06/12/21 06/12/21 Unknown History Mirtazapine [Remeron] 15 mg PO HS 06/12/21 06/12/21 Unknown History QUEtiapine [SEROquel] 100 mg PO HS 06/12/21 06/12/21 Unknown History Quetiapine Fumarate [SEROquel] 50 mg PO QDAY 06/12/21 06/12/21 Unknown History donepeziL [Aricept] 10 mg PO HS 06/12/21 06/12/21 Unknown History Active Meds: Active Medications Aspirin (Aspirin Ec 81 Mg Tab) 81 mg PO QDAY [facility] Last Admin: 06/26/21 09:12 Dose: 81 mg Cholecalciferol (Cholecalciferol (Vit D3) 1000 Unit (25 Mcg) Tab) 4,000 unit PO QDAY [facility] Last Admin: 06/26/21 09:12 Dose: 4,000 unit Clonazepam (Clonazepam 0.5 Mg Tab) 0.5 mg PO BID [facility] Last Admin: 06/26/21 21:05 Dose: 0.5 mg Clopidogrel Bisulfate (Clopidogrel 75 Mg Tab) 75 mg PO QDAY [facility] Last Admin: 06/26/21 09:12 Dose: 75 mg Donepezil HCl (Donepezil 10 Mg Tab) 10 mg PO [facility] Last Admin: 06/26/21 21:05 Dose: 10 mg Loperamide HCl (Loperamide 2 Mg Cap) 2 mg PO Q6H PRN PRN Reason: Diarrhea Memantine (Memantine 5 Mg Tab) 5 mg PO BID [facility] Last Admin: 06/26/21 21:05 Dose: 5 mg Mirtazapine (Mirtazapine 15 Mg Tab) 15 mg PO [facility] Last Admin: 06/26/21 21:05 Dose: 15 mg Quetiapine Fumarate (Quetiapine 100 Mg Tab) 300 mg PO QHS [facility] Last Admin: 06/26/21 21:05 Dose: 300 mg Quetiapine Fumarate (Quetiapine 200 Mg Tab) 200 mg PO DAILY [facility] Last Admin: 06/26/21 09:13 Dose: 200 mg Valproic Acid (Valproic Acid 250 Mg/5 Ml Oral Liqd) 250 mg PO TID [facility] Last Admin: 06/26/21 21:04 Dose: 250 mg Ziprasidone (Ziprasidone Mesylate 20 Mg Vial) 20 mg IM Q4H PRN PRN Reason: Agitation Last Admin: 06/17/21 11:04 Dose: 20 mg Results - Results Labs/Vitals: Laboratory Last Values WBC 4.6 K/mm3 (4.5-11.0) 06/12/21 23:42 RBC 3.08 M/mm3 (3.65-5.03) L 06/12/21 23:42 Hgb 9.8 gm/dl (11.8-15.2) L 06/12/21 23:42 Hct 30.3 % (35.5-45.6) L 06/12/21 23:42 MCV 98 fl (84-94) H 06/12/21 23:42 MCH 32 pg (28-32) 06/12/21 23: MCHC 32 % (32-34) 06/12/21 23: RDW 16.4 % (13.2-15.2) H 06/12/21 23:42 Plt Count 269 K/mm3 (140-440) 06/12/21 23:42 Lymph % (Auto) 27.4 % (13.4-35.0) 06/12/21 23:42 [place] % (Auto) 9.4 % (0.0-7.3) H 06/12/21 23:42 Eos % (Auto) 1.4 % (0.0-4.3) 06/12/21 23:42 Baso % (Auto) 0.5 % (0.0-1.8) 06/12/21 23: Lymph # (Auto) 1.2 K/mm3 (1.2-5.4) 06/12/21 23: [place] # (Auto) 0.4 K/mm3 (0.0-0.8) 06/12/21 23:42 Eos # (Auto) 0.1 K/mm3 (0.0-0.4) 06/12/21 23: Baso # (Auto) 0.0 K/mm3 (0.0-0.1) 06/12/21 23:42 Seg Neutrophils % 61.3 % (40.0-70.0) 06/12/21 23: Seg Neutrophils # 2.8 K/mm3 (1.8-7.7) 06/12/21 23:42 Sodium 138 mmol/L (137-145) 06/12/21 23:42 Potassium 4.2 mmol/L (3.6-5.0) 06/12/21 23:42 Chloride 103.5 mmol/L (98-107) 06/12/21 23:42 Carbon Dioxide 27 mmol/L (22-30) 06/12/21 23:42 Anion Gap 12 mmol/L 06/12/21 23:42 BUN 22 mg/dL (9-20) H 06/12/21 23:42 Creatinine 0.7 mg/dL (0.8-1.3) L 06/12/21 23:42 Estimated GFR > 60 ml/min 06/12/21 23:42 BUN/Creatinine Ratio 31 % 06/12/21 23:42 Glucose 95 mg/dL (75-100) 06/12/21 23:42 Hemoglobin A1c 5.6 % (4-6) 06/12/21 23:42 Calcium 8.6 mg/dL (8.4-10.2) 06/12/21 23:42 Total Bilirubin 0.20 mg/dL (0.1-1.2) 06/12/21 23:42 AST 24 units/L (5-40) 06/12/21 23:42 ALT 29 units/L (7-56) 06/12/21 23:42 Alkaline Phosphatase 96 units/L (35-129) 06/12/21 23:42 Total Protein 7.5 g/dL (6.3-8.2) 06/12/21 23:42 Albumin 3.4 g/dL (3.9-5) L 06/12/21 23:42 Albumin/Globulin Ratio 0.8 % 06/12/21 23:42 Triglycerides 50 mg/dL (2-149) 06/12/21 23:42 Cholesterol 164 mg/dL (50-199) 06/12/21 23:42 LDL Cholesterol Direct 93 mg/dL (50-130) 06/12/21 23:42 HDL Cholesterol 65 mg/dL (40-59) H 06/12/21 23:42 Cholesterol/HDL Ratio 2.52 % 06/12/21 23:42 TSH 2.150 mlU/mL (0.270-4.200) 06/12/21 23:42 Hepatitis A IgM Ab Non-reactive (NonReactive) 06/12/21 23:42 Hep Bs Antigen Non-reactive (Negative) 06/12/21 23:42 Hep B Core IgM Ab Non-reactive (NonReactive) 06/12/21 23:42 Hepatitis C Antibody Non-reactive (NonReactive) 06/12/21 23:42 Last Vital Signs Temp 97.8 F 06/26/21 20:29 Pulse 100 H 06/26/21 20:29 Resp 20 06/26/21 20:29 BP 115/67 06/26/21 20:29 Pulse Ox 96 06/26/21 20:29
[2021-06-27] MEDS: CHOLECALCIFEROL (VIT D3) 1000 UNIT (25 mcg) TAB PO SCH (09:01)
[2021-06-27] MEDS: CLOPIDOGREL 75 MG TAB PO SCH (09:01)
[2021-06-27] MEDS: ASPIRIN EC 81 MG TAB PO SCH (09:01)
[2021-06-27] MEDS: QUEtiapine 200 MG TAB PO SCH (09:01)
[2021-06-27] MEDS: MEMANTINE 5 MG TAB PO SCH ×2 (09:01→21:06)
[2021-06-27] MEDS: clonazePAM 0.5 MG TAB PO SCH ×2 (09:01→21:04)
[2021-06-27] MEDS: QUEtiapine 100 MG TAB PO SCH (21:04)
[2021-06-27] MEDS: MIRTAZAPINE 15 MG TAB PO SCH (21:06)
[2021-06-27] MEDS: DONEPEZIL 10 MG TAB PO SCH (21:07)
[2021-06-28] MEDS: VALPROIC ACID 250 MG/5 ML ORAL LIQD PO SCH ×3 (07:53→20:57)
[2021-06-28] MEDS: MEMANTINE 5 MG TAB PO SCH ×2 (09:29→21:22)
[2021-06-28] MEDS: CLOPIDOGREL 75 MG TAB PO SCH (09:29)
[2021-06-28] MEDS: clonazePAM 0.5 MG TAB PO SCH ×2 (09:29→21:22)
[2021-06-28] MEDS: CHOLECALCIFEROL (VIT D3) 1000 UNIT (25 mcg) TAB PO SCH (09:29)
[2021-06-28] MEDS: ASPIRIN EC 81 MG TAB PO SCH (09:30)
[2021-06-28] MEDS: QUEtiapine 200 MG TAB PO SCH (09:30)
--- NOTE | 2021-06-28 10:59 | Progress Note ---
Subjective Date of service: 06/28/21 Principal diagnosis: Dementia with Behavioral Disturbance Subjective Comment: The patient was seen today. He has progressed a lot since first treating this patient. He is lying in bed asleep. He easily arouses. He greets me after I gree him. The patient told me he was tired and trying to get a nap in. He denies SI/HI or hallucinations. REVIEW OF SYSTEMS Constitutional: Negative for weight loss ENT: Negative for stridor Respiratory: Negative for cough or hemoptysis All other systems reviewed and are negative MENTAL STATUS EXAMINATION Unable to assess Assessment (1)Dementia with Behavioral Disturbance Current Visit: Yes Status: Acute Treatment Plan Patient admitted for inpatient psychiatric evaluation, medication adjustment and close monitoring The patient's behavior, mood, sleep and appetite will be closely monitored. Patient enrolled in individual and group therapeutic sessions and encouraged to attend. Patient provided with a safe and structured environment. Patient's physical health needs will be addressed by the Hospitalist. Hospitalist Consulted Labs including CBC, CMP, Lipid profile and Hemoglobin A1C levels ordered for baseline reference Social Assessment will be completed and the Contract Design Agent will work with patient and family to ensure a suitable and safe disposition Medication adjustment will be made as clinically indicated Continue Valproic acid 250mg po TID Continue morning Seroquel 200mg po daily in addition to nighttime dose Usual Wellness Yarsanism/Preservation: - Start Trazodone 50 mg po QHS & 50 mg po QHS PRN between 10 PM & 2 AM for insomnia - Start Melatonin 5 mg po QHS to promote circadian rhythm The patient agreed on the treatment plan, understood the risk, benefit, alternative treatment, potential consequence of no treatment, and gave informed consent. Estimated days: 7 Post hospital care: primary care provider, psychiatric provider Case staffed with Dr. Carrion Medications and Allergies Allergies Allergy/AdvReac Type Severity Reaction Status Date / Time morphine Allergy Unknown Verified 06/12/21 22:36 Home Medications Medication Instructions Recorded Confirmed Last Taken Type Aspirin EC [Halfprin EC] 81 mg PO QDAY 06/12/21 06/12/21 Unknown History Cholecalciferol Vit D3 [Vitamin D3 4,000 unit PO QDAY 06/12/21 06/12/21 Unknown History 1,000 UNIT TAB] Clopidogrel [Plavix] 75 mg PO QDAY 06/12/21 06/12/21 Unknown History Memantine [Namenda] 5 mg PO BID 06/12/21 06/12/21 Unknown History Mirtazapine [Remeron] 15 mg PO HS 06/12/21 06/12/21 Unknown History QUEtiapine [SEROquel] 100 mg PO HS 06/12/21 06/12/21 Unknown History Quetiapine Fumarate [SEROquel] 50 mg PO QDAY 06/12/21 06/12/21 Unknown History donepeziL [Aricept] 10 mg PO HS 06/12/21 06/12/21 Unknown History Active Meds: Active Medications Aspirin (Aspirin Ec 81 Mg Tab) 81 mg PO QDAY [facility] Last Admin: 06/28/21 09:30 Dose: 81 mg Cholecalciferol (Cholecalciferol (Vit D3) 1000 Unit (25 Mcg) Tab) 4,000 unit PO QDAY [facility] Last Admin: 06/28/21 09:29 Dose: 4,000 unit Clonazepam (Clonazepam 0.5 Mg Tab) 0.5 mg PO BID [facility] Last Admin: 06/28/21 09:29 Dose: 0.5 mg Clopidogrel Bisulfate (Clopidogrel 75 Mg Tab) 75 mg PO QDAY [facility] Last Admin: 06/28/21 09:29 Dose: 75 mg Donepezil HCl (Donepezil 10 Mg Tab) 10 mg PO [facility] Last Admin: 06/27/21 21:07 Dose: 10 mg Loperamide HCl (Loperamide 2 Mg Cap) 2 mg PO Q6H PRN PRN Reason: Diarrhea Memantine (Memantine 5 Mg Tab) 5 mg PO BID [facility] Last Admin: 06/28/21 09:29 Dose: 5 mg Mirtazapine (Mirtazapine 15 Mg Tab) 15 mg PO [facility] Last Admin: 06/27/21 21:06 Dose: 15 mg Quetiapine Fumarate (Quetiapine 100 Mg Tab) 300 mg PO QHS [facility] Last Admin: 06/27/21 21:04 Dose: 300 mg Quetiapine Fumarate (Quetiapine 200 Mg Tab) 200 mg PO DAILY [facility] Last Admin: 06/28/21 09:30 Dose: 200 mg Valproic Acid (Valproic Acid 250 Mg/5 Ml Oral Liqd) 250 mg PO TID [facility] Last Admin: 06/28/21 07:53 Dose: 250 mg Ziprasidone (Ziprasidone Mesylate 20 Mg Vial) 20 mg IM Q4H PRN PRN Reason: Agitation Last Admin: 06/17/21 11:04 Dose: 20 mg Results - Results Labs/Vitals: Laboratory Last Values WBC 4.6 K/mm3 (4.5-11.0) 06/12/21 23:42 RBC 3.08 M/mm3 (3.65-5.03) L 06/12/21 23:42 Hgb 9.8 gm/dl (11.8-15.2) L 06/12/21 23:42 Hct 30.3 % (35.5-45.6) L 06/12/21 23:42 MCV 98 fl (84-94) H 06/12/21 23:42 MCH 32 pg (28-32) 06/12/21 23: MCHC 32 % (32-34) 06/12/21 23:42 RDW 16.4 % (13.2-15.2) H 06/12/21 23:42 Plt Count 269 K/mm3 (140-440) 06/12/21 23:42 Lymph % (Auto) 27.4 % (13.4-35.0) 06/12/21 23:42 [place] % (Auto) 9.4 % (0.0-7.3) H 06/12/21 23:42 Eos % (Auto) 1.4 % (0.0-4.3) 06/12/21 23:42 Baso % (Auto) 0.5 % (0.0-1.8) 06/12/21 23:42 Lymph # (Auto) 1.2 K/mm3 (1.2-5.4) 06/12/21 23: [place] # (Auto) 0.4 K/mm3 (0.0-0.8) 06/12/21 23:42 Eos # (Auto) 0.1 K/mm3 (0.0-0.4) 06/12/21 23: Baso # (Auto) 0.0 K/mm3 (0.0-0.1) 06/12/21 23:42 Seg Neutrophils % 61.3 % (40.0-70.0) 06/12/21 23: Seg Neutrophils # 2.8 K/mm3 (1.8-7.7) 06/12/21 23:42 Sodium 138 mmol/L (137-145) 06/12/21 23:42 Potassium 4.2 mmol/L (3.6-5.0) 06/12/21 23:42 Chloride 103.5 mmol/L (98-107) 06/12/21 23:42 Carbon Dioxide 27 mmol/L (22-30) 06/12/21 23:42 Anion Gap 12 mmol/L 06/12/21 23:42 BUN 22 mg/dL (9-20) H 06/12/21 23:42 Creatinine 0.7 mg/dL (0.8-1.3) L 06/12/21 23:42 Estimated GFR > 60 ml/min 06/12/21 23:42 BUN/Creatinine Ratio 31 % 06/12/21 23:42 Glucose 95 mg/dL (75-100) 06/12/21 23:42 Hemoglobin A1c 5.6 % (4-6) 06/12/21 23:42 Calcium 8.6 mg/dL (8.4-10.2) 06/12/21 23:42 Total Bilirubin 0.20 mg/dL (0.1-1.2) 06/12/21 23:42 AST 24 units/L (5-40) 06/12/21 23:42 ALT 29 units/L (7-56) 06/12/21 23:42 Alkaline Phosphatase 96 units/L (35-129) 06/12/21 23:42 Total Protein 7.5 g/dL (6.3-8.2) 06/12/21 23:42 Albumin 3.4 g/dL (3.9-5) L 06/12/21 23:42 Albumin/Globulin Ratio 0.8 % 06/12/21 23:42 Triglycerides 50 mg/dL (2-149) 06/12/21 23:42 Cholesterol 164 mg/dL (50-199) 06/12/21 23:42 LDL Cholesterol Direct 93 mg/dL (50-130) 06/12/21 23:42 HDL Cholesterol 65 mg/dL (40-59) H 06/12/21 23:42 Cholesterol/HDL Ratio 2.52 % 06/12/21 23:42 TSH 2.150 mlU/mL (0.270-4.200) 06/12/21 23:42 Hepatitis A IgM Ab Non-reactive (NonReactive) 06/12/21 23:42 Hep Bs Antigen Non-reactive (Negative) 06/12/21 23:42 Hep B Core IgM Ab Non-reactive (NonReactive) 06/12/21 23:42 Hepatitis C Antibody Non-reactive (NonReactive) 06/12/21 23:42 Last Vital Signs Temp 99.1 F 06/27/21 21:00 Pulse 100 H 06/27/21 21:00 Resp 20 06/27/21 21:00 BP 104/58 06/27/21 21:00 Pulse Ox 94 06/27/21 21:00
[2021-06-28] MEDS: QUEtiapine 100 MG TAB PO SCH (21:21)
[2021-06-28] MEDS: MIRTAZAPINE 15 MG TAB PO SCH (21:22)
[2021-06-28] MEDS: DONEPEZIL 10 MG TAB PO SCH (21:22)
[2021-06-29] MEDS: VALPROIC ACID 250 MG/5 ML ORAL LIQD PO SCH ×3 (07:39→21:11)
[2021-06-29] MEDS: CLOPIDOGREL 75 MG TAB PO SCH (09:09)
[2021-06-29] MEDS: ASPIRIN EC 81 MG TAB PO SCH (09:09)
[2021-06-29] MEDS: QUEtiapine 200 MG TAB PO SCH (09:10)
[2021-06-29] MEDS: clonazePAM 0.5 MG TAB PO SCH ×2 (09:10→21:12)
[2021-06-29] MEDS: MEMANTINE 5 MG TAB PO SCH ×2 (09:10→21:12)
[2021-06-29] MEDS: CHOLECALCIFEROL (VIT D3) 1000 UNIT (25 mcg) TAB PO SCH (09:10)
--- NOTE | 2021-06-29 09:28 | Progress Note ---
Subjective Date of service: 06/29/21 Principal diagnosis: Dementia with Behavioral Disturbance Subjective Comment: The patient was seen today. He is calm, and cooperative. He is rambling, but much better. The patient says he didn't sleep well last night because he was worried about his kids. He says "they haven't been up here to see me. They act like I got COVID." I advised the patient that family wasn't allowed to come but he could call. The patient denies SI/HI or hallucinations of any kind. REVIEW OF SYSTEMS Constitutional: Negative for weight loss ENT: Negative for stridor Respiratory: Negative for cough or hemoptysis All other systems reviewed and are negative MENTAL STATUS EXAMINATION Unable to assess Assessment (1)Dementia with Behavioral Disturbance Current Visit: Yes Status: Acute Treatment Plan Patient admitted for inpatient psychiatric evaluation, medication adjustment and close monitoring The patient's behavior, mood, sleep and appetite will be closely monitored. Patient enrolled in individual and group therapeutic sessions and encouraged to attend. Patient provided with a safe and structured environment. Patient's physical health needs will be addressed by the Hospitalist. Hospitalist Consulted Labs including CBC, CMP, Lipid profile and Hemoglobin A1C levels ordered for baseline reference Social Assessment will be completed and the Casing Grader will work with patient and family to ensure a suitable and safe disposition Medication adjustment will be made as clinically indicated No changes made today Usual Wellness Rastafari/Preservation: - Start Trazodone 50 mg po QHS & 50 mg po QHS PRN between 10 PM & 2 AM for insomnia - Start Melatonin 5 mg po QHS to promote circadian rhythm The patient agreed on the treatment plan, understood the risk, benefit, alternative treatment, potential consequence of no treatment, and gave informed consent. Estimated days: 7 Post hospital care: primary care provider, psychiatric provider Case staffed with Dr. Carrion Medications and Allergies Allergies Allergy/AdvReac Type Severity Reaction Status Date / Time morphine Allergy Unknown Verified 06/12/21 22:36 Home Medications Medication Instructions Recorded Confirmed Last Taken Type Aspirin EC [Halfprin EC] 81 mg PO QDAY 06/12/21 06/12/21 Unknown History Cholecalciferol Vit D3 [Vitamin D3 4,000 unit PO QDAY 06/12/21 06/12/21 Unknown History 1,000 UNIT TAB] Clopidogrel [Plavix] 75 mg PO QDAY 06/12/21 06/12/21 Unknown History Memantine [Namenda] 5 mg PO BID 06/12/21 06/12/21 Unknown History Mirtazapine [Remeron] 15 mg PO HS 06/12/21 06/12/21 Unknown History QUEtiapine [SEROquel] 100 mg PO HS 06/12/21 06/12/21 Unknown History Quetiapine Fumarate [SEROquel] 50 mg PO QDAY 06/12/21 06/12/21 Unknown History donepeziL [Aricept] 10 mg PO HS 06/12/21 06/12/21 Unknown History Active Meds: Active Medications Aspirin (Aspirin Ec 81 Mg Tab) 81 mg PO QDAY [facility] Last Admin: 06/29/21 09:09 Dose: 81 mg Cholecalciferol (Cholecalciferol (Vit D3) 1000 Unit (25 Mcg) Tab) 4,000 unit PO QDAY [facility] Last Admin: 06/29/21 09:10 Dose: 4,000 unit Clonazepam (Clonazepam 0.5 Mg Tab) 0.5 mg PO BID [facility] Last Admin: 06/29/21 09:10 Dose: 0.5 mg Clopidogrel Bisulfate (Clopidogrel 75 Mg Tab) 75 mg PO QDAY [facility] Last Admin: 06/29/21 09:09 Dose: 75 mg Donepezil HCl (Donepezil 10 Mg Tab) 10 mg PO [facility] Last Admin: 06/28/21 21:22 Dose: 10 mg Loperamide HCl (Loperamide 2 Mg Cap) 2 mg PO Q6H PRN PRN Reason: Diarrhea Memantine (Memantine 5 Mg Tab) 5 mg PO BID [facility] Last Admin: 06/29/21 09:10 Dose: 5 mg Mirtazapine (Mirtazapine 15 Mg Tab) 15 mg PO [facility] Last Admin: 06/28/21 21:22 Dose: 15 mg Quetiapine Fumarate (Quetiapine 100 Mg Tab) 300 mg PO QHS [facility] Last Admin: 06/28/21 21:21 Dose: 300 mg Quetiapine Fumarate (Quetiapine 200 Mg Tab) 200 mg PO DAILY [facility] Last Admin: 06/29/21 09:10 Dose: 200 mg Valproic Acid (Valproic Acid 250 Mg/5 Ml Oral Liqd) 250 mg PO TID [facility] Last Admin: 06/29/21 07:39 Dose: 250 mg Ziprasidone (Ziprasidone Mesylate 20 Mg Vial) 20 mg IM Q4H PRN PRN Reason: Agitation Last Admin: 06/17/21 11:04 Dose: 20 mg Results - Results Labs/Vitals: Laboratory Last Values WBC 4.6 K/mm3 (4.5-11.0) 06/12/21 23:42 RBC 3.08 M/mm3 (3.65-5.03) L 06/12/21 23:42 Hgb 9.8 gm/dl (11.8-15.2) L 06/12/21 23:42 Hct 30.3 % (35.5-45.6) L 06/12/21 23:42 MCV 98 fl (84-94) H 06/12/21 23:42 MCH 32 pg (28-32) 06/12/21 23:42 MCHC 32 % (32-34) 06/12/21 23:42 RDW 16.4 % (13.2-15.2) H 06/12/21 23:42 Plt Count 269 K/mm3 (140-440) 06/12/21 23:42 Lymph % (Auto) 27.4 % (13.4-35.0) 06/12/21 23:42 [place] % (Auto) 9.4 % (0.0-7.3) H 06/12/21 23:42 Eos % (Auto) 1.4 % (0.0-4.3) 06/12/21 23:42 Baso % (Auto) 0.5 % (0.0-1.8) 06/12/21 23:42 Lymph # (Auto) 1.2 K/mm3 (1.2-5.4) 06/12/21 23:42 [place] # (Auto) 0.4 K/mm3 (0.0-0.8) 06/12/21 23:42 Eos # (Auto) 0.1 K/mm3 (0.0-0.4) 06/12/21 23:42 Baso # (Auto) 0.0 K/mm3 (0.0-0.1) 06/12/21 23:42 Seg Neutrophils % 61.3 % (40.0-70.0) 06/12/21 23:42 Seg Neutrophils # 2.8 K/mm3 (1.8-7.7) 06/12/21 23:42 Sodium 138 mmol/L (137-145) 06/12/21 23:42 Potassium 4.2 mmol/L (3.6-5.0) 06/12/21 23:42 Chloride 103.5 mmol/L (98-107) 06/12/21 23:42 Carbon Dioxide 27 mmol/L (22-30) 06/12/21 23:42 Anion Gap 12 mmol/L 06/12/21 23:42 BUN 22 mg/dL (9-20) H 06/12/21 23:42 Creatinine 0.7 mg/dL (0.8-1.3) L 06/12/21 23:42 Estimated GFR > 60 ml/min 06/12/21 23:42 BUN/Creatinine Ratio 31 % 06/12/21 23:42 Glucose 95 mg/dL (75-100) 06/12/21 23:42 Hemoglobin A1c 5.6 % (4-6) 06/12/21 23:42 Calcium 8.6 mg/dL (8.4-10.2) 06/12/21 23:42 Total Bilirubin 0.20 mg/dL (0.1-1.2) 06/12/21 23:42 AST 24 units/L (5-40) 06/12/21 23:42 ALT 29 units/L (7-56) 06/12/21 23:42 Alkaline Phosphatase 96 units/L (35-129) 06/12/21 23:42 Total Protein 7.5 g/dL (6.3-8.2) 06/12/21 23:42 Albumin 3.4 g/dL (3.9-5) L 06/12/21 23:42 Albumin/Globulin Ratio 0.8 % 06/12/21 23:42 Triglycerides 50 mg/dL (2-149) 06/12/21 23:42 Cholesterol 164 mg/dL (50-199) 06/12/21 23:42 LDL Cholesterol Direct 93 mg/dL (50-130) 06/12/21 23:42 HDL Cholesterol 65 mg/dL (40-59) H 06/12/21 23:42 Cholesterol/HDL Ratio 2.52 % 06/12/21 23:42 TSH 2.150 mlU/mL (0.270-4.200) 06/12/21 23:42 Hepatitis A IgM Ab Non-reactive (NonReactive) 06/12/21 23:42 Hep Bs Antigen Non-reactive (Negative) 06/12/21 23:42 Hep B Core IgM Ab Non-reactive (NonReactive) 06/12/21 23:42 Hepatitis C Antibody Non-reactive (NonReactive) 06/12/21 23:42 Last Vital Signs Temp 99.1 F 06/27/21 21:00 Pulse 100 H 06/27/21 21:00 Resp 20 06/27/21 21:00 BP 104/58 06/27/21 21:00 Pulse Ox 94 06/27/21 21:00
[2021-06-29] MEDS: MIRTAZAPINE 15 MG TAB PO SCH (21:11)
[2021-06-29] MEDS: DONEPEZIL 10 MG TAB PO SCH (21:12)
[2021-06-29] MEDS: QUEtiapine 100 MG TAB PO SCH (21:12)
[2021-06-30] MEDS: ASPIRIN EC 81 MG TAB PO SCH (09:13)
[2021-06-30] MEDS: clonazePAM 0.5 MG TAB PO SCH ×2 (09:13→21:14)
[2021-06-30] MEDS: VALPROIC ACID 250 MG/5 ML ORAL LIQD PO SCH ×3 (09:13→20:16)
[2021-06-30] MEDS: CLOPIDOGREL 75 MG TAB PO SCH (09:13)
[2021-06-30] MEDS: MEMANTINE 5 MG TAB PO SCH ×2 (09:14→21:14)
[2021-06-30] MEDS: QUEtiapine 200 MG TAB PO SCH (09:14)
[2021-06-30] MEDS: CHOLECALCIFEROL (VIT D3) 1000 UNIT (25 mcg) TAB PO SCH (09:14)
--- NOTE | 2021-06-30 09:40 | Progress Note ---
Subjective Date of service: 06/30/21 Principal diagnosis: Dementia with Behavioral Disturbance Subjective Comment: The patient was seen today. He is talkative, but cooperative. He says he's doing fine and ready to eat. He denies thoughts of self harm, he says "no I don't want to . I want to go to [facility], [facility]." The patient denies hallucinations. He says he's drinking his coffee and waiting for lunch. REVIEW OF SYSTEMS Constitutional: Negative for weight loss ENT: Negative for stridor Respiratory: Negative for cough or hemoptysis All other systems reviewed and are negative MENTAL STATUS EXAMINATION Unable to assess Assessment (1)Dementia with Behavioral Disturbance Current Visit: Yes Status: Acute Treatment Plan Patient admitted for inpatient psychiatric evaluation, medication adjustment and close monitoring The patient's behavior, mood, sleep and appetite will be closely monitored. Patient enrolled in individual and group therapeutic sessions and encouraged to attend. Patient provided with a safe and structured environment. Patient's physical health needs will be addressed by the Hospitalist. Hospitalist Consulted Labs including CBC, CMP, Lipid profile and Hemoglobin A1C levels ordered for baseline reference Social Assessment will be completed and the Program Evaluation Consultant will work with pat ient and family to ensure a suitable and safe disposition Medication adjustment will be made as clinically indicated No changes made today Usual Wellness Shinto/Preservation: - Start Trazodone 50 mg po QHS & 50 mg po QHS PRN between 10 PM & 2 AM for insomnia - Start Melatonin 5 mg po QHS to promote circadian rhythm The patient agreed on the treatment plan, understood the risk, benefit, alternative treatment, potential consequence of no treatment, and gave informed consent. Estimated days: 7 Post hospital care: primary care provider, psychiatric provider Case staffed with Dr. Carrion Medications and Allergies Allergies Allergy/AdvReac Type Severity Reaction Status Date / Time morphine Allergy Unknown Verified 06/12/21 22:36 Home Medications Medication Instructions Recorded Confirmed Last Taken Type Aspirin EC [Halfprin EC] 81 mg PO QDAY 06/12/21 06/12/21 Unknown History Cholecalciferol Vit D3 [Vitamin D3 4,000 unit PO QDAY 06/12/21 06/12/21 Unknown History 1,000 UNIT TAB] Clopidogrel [Plavix] 75 mg PO QDAY 06/12/21 06/12/21 Unknown History Memantine [Namenda] 5 mg PO BID 06/12/21 06/12/21 Unknown History Mirtazapine [Remeron] 15 mg PO HS 06/12/21 06/12/21 Unknown History QUEtiapine [SEROquel] 100 mg PO HS 06/12/21 06/12/21 Unknown History Quetiapine Fumarate [SEROquel] 50 mg PO QDAY 06/12/21 06/12/21 Unknown History donepeziL [Aricept] 10 mg PO HS 06/12/21 06/12/21 Unknown History Active Meds: Active Medications Aspirin (Aspirin Ec 81 Mg Tab) 81 mg PO QDAY [facility] Last Admin: 06/30/21 09:13 Dose: 81 mg Cholecalciferol (Cholecalciferol (Vit D3) 1000 Unit (25 Mcg) Tab) 4,000 unit PO QDAY [facility] Last Admin: 06/30/21 09:14 Dose: 4,000 unit Clonazepam (Clonazepam 0.5 Mg Tab) 0.5 mg PO BID [facility] Last Admin: 06/30/21 09:13 Dose: 0.5 mg Clopidogrel Bisulfate (Clopidogrel 75 Mg Tab) 75 mg PO QDAY [facility] Last Admin: 06/30/21 09:13 Dose: 75 mg Donepezil HCl (Donepezil 10 Mg Tab) 10 mg PO [facility] Last Admin: 06/29/21 21:12 Dose: 10 mg Loperamide HCl (Loperamide 2 Mg Cap) 2 mg PO Q6H PRN PRN Reason: Diarrhea Memantine (Memantine 5 Mg Tab) 5 mg PO BID [facility] Last Admin: 06/30/21 09:14 Dose: 5 mg Mirtazapine (Mirtazapine 15 Mg Tab) 15 mg PO [facility] Last Admin: 06/29/21 21:11 Dose: 15 mg Quetiapine Fumarate (Quetiapine 100 Mg Tab) 300 mg PO QHS [facility] Last Admin: 06/29/21 21:12 Dose: 300 mg Quetiapine Fumarate (Quetiapine 200 Mg Tab) 200 mg PO DAILY [facility] Last Admin: 06/30/21 09:14 Dose: 200 mg Valproic Acid (Valproic Acid 250 Mg/5 Ml Oral Liqd) 250 mg PO TID [facility] Last Admin: 06/30/21 09:13 Dose: 250 mg Ziprasidone (Ziprasidone Mesylate 20 Mg Vial) 20 mg IM Q4H PRN PRN Reason: Agitation Last Admin: 06/17/21 11:04 Dose: 20 mg Results - Results Labs/Vitals: Laboratory Last Values WBC 4.6 K/mm3 (4.5-11.0) 06/12/21 23:42 RBC 3.08 M/mm3 (3.65-5.03) L 06/12/21 23:42 Hgb 9.8 gm/dl (11.8-15.2) L 06/12/21 23:42 Hct 30.3 % (35.5-45.6) L 06/12/21 23:42 MCV 98 fl (84-94) H 06/12/21 23:42 MCH 32 pg (28-32) 06/12/21 23:42 MCHC 32 % (32-34) 06/12/21 23:42 RDW 16.4 % (13.2-15.2) H 06/12/21 23:42 Plt Count 269 K/mm3 (140-440) 06/12/21 23:42 Lymph % (Auto) 27.4 % (13.4-35.0) 06/12/21 23:42 Daniels % (Auto) 9.4 % (0.0-7.3) H 06/12/21 23:42 Eos % (Auto) 1.4 % (0.0-4.3) 06/12/21 23:42 Baso % (Auto) 0.5 % (0.0-1.8) 06/12/21 23:42 Lymph # (Auto) 1.2 K/mm3 (1.2-5.4) 06/12/21 23:42 Daniels # (Auto) 0.4 K/mm3 (0.0-0.8) 06/12/21 23:42 Eos # (Auto) 0.1 K/mm3 (0.0-0.4) 06/12/21 23:42 Baso # (Auto) 0.0 K/mm3 (0.0-0.1) 06/12/21 23:42 Seg Neutrophils % 61.3 % (40.0-70.0) 06/12/21 23:42 Seg Neutrophils # 2.8 K/mm3 (1.8-7.7) 06/12/21 23:42 Sodium 138 mmol/L (137-145) 06/12/21 23:42 Potassium 4.2 mmol/L (3.6-5.0) 06/12/21 23:42 Chloride 103.5 mmol/L (98-107) 06/12/21 23:42 Carbon Dioxide 27 mmol/L (22-30) 06/12/21 23:42 Anion Gap 12 mmol/L 06/12/21 23:42 BUN 22 mg/dL (9-20) H 06/12/21 23:42 Creatinine 0.7 mg/dL (0.8-1.3) L 06/12/21 23:42 Estimated GFR > 60 ml/min 06/12/21 23:42 BUN/Creatinine Ratio 31 % 06/12/21 23:42 Glucose 95 mg/dL (75-100) 06/12/21 23:42 Hemoglobin A1c 5.6 % (4-6) 06/12/21 23:42 Calcium 8.6 mg/dL (8.4-10.2) 06/12/21 23:42 Total Bilirubin 0.20 mg/dL (0.1-1.2) 06/12/21 23:42 AST 24 units/L (5-40) 06/12/21 23:42 ALT 29 units/L (7-56) 06/12/21 23:42 Alkaline Phosphatase 96 units/L (35-129) 06/12/21 23:42 Total Protein 7.5 g/dL (6.3-8.2) 06/12/21 23:42 Albumin 3.4 g/dL (3.9-5) L 06/12/21 23:42 Albumin/Globulin Ratio 0.8 % 06/12/21 23:42 Triglycerides 50 mg/dL (2-149) 06/12/21 23:42 Cholesterol 164 mg/dL (50-199) 06/12/21 23:42 LDL Cholesterol Direct 93 mg/dL (50-130) 06/12/21 23:42 HDL Cholesterol 65 mg/dL (40-59) H 06/12/21 23:42 Cholesterol/HDL Ratio 2.52 % 06/12/21 23:42 TSH 2.150 mlU/mL (0.270-4.200) 06/12/21 23:42 Hepatitis A IgM Ab Non-reactive (NonReactive) 06/12/21 23:42 Hep Bs Antigen Non-reactive (Negative) 06/12/21 23:42 Hep B Core IgM Ab Non-reactive (NonReactive) 06/12/21 23:42 Hepatitis C Antibody Non-reactive (NonReactive) 06/12/21 23:42 Last Vital Signs Temp 98.0 F 06/29/21 19:45 Pulse 109 H 06/29/21 19:45 Resp 17 06/29/21 19:45 BP 116/62 06/29/21 19:45 Pulse Ox 96 06/29/21 19:45
[2021-06-30] MEDS: DONEPEZIL 10 MG TAB PO SCH (21:14)
[2021-06-30] MEDS: QUEtiapine 100 MG TAB PO SCH (21:14)
[2021-06-30] MEDS: MIRTAZAPINE 15 MG TAB PO SCH (21:14)
--- NOTE | 2021-07-01 09:04 | Progress Note ---
Subjective Date of service: 07/01/21 Principal diagnosis: Dementia with Behavioral Disturbance Subjective Comment: The patient was seen today. He is talkative as usual. He is in his room looking out of the window. He says he slept real good The patient says "I made my bed up this morning." His bed is made. He says he feels good. When asking the patient if he wanted to hurt himself or anybody, he says "no I don't want to or hurt people." He then starts walking with me and talking. REVIEW OF SYSTEMS Constitutional: Negative for weight loss ENT: Negative for stridor Respiratory: Negative for cough or hemoptysis All other systems reviewed and are negative MENTAL STATUS EXAMINATION Unable to assess Assessment (1)Dementia with Behavioral Disturbance Current Visit: Yes Status: Acute Treatment Plan Patient admitted for inpatient psychiatric evaluation, medication adjustment and close monitoring The patient's behavior, mood, sleep and appetite will be closely monitored. Patient enrolled in individual and group therapeutic sessions and encouraged to attend. Patient provided with a safe and structured environment. Patient's physical health needs will be addressed by the Hospitalist. Hospitalist Consulted Labs including CBC, CMP, Lipid profile and Hemoglobin A1C levels ordered for baseline reference Social Assessment will be completed and the Emerging [employer] Executive will work with patient and family to ensure a suitable and safe disposition Medication adjustment will be made as clinically indicated No changes made today Usual Wellness Mandaen/Preservation: - Start Trazodone 50 mg po QHS & 50 mg po QHS PRN between 10 PM & 2 AM for insomnia - Start Melatonin 5 mg po QHS to promote circadian rhythm The patient agreed on the treatment plan, understood the risk, benefit, alternative treatment, potential consequence of no treatment, and gave informed consent. Estimated days: 7 Post hospital care: primary care provider, psychiatric provider Case staffed with Dr. Carrion Medications and Allergies Allergies Allergy/AdvReac Type Severity Reaction Status Date / Time morphine Allergy Unknown Verified 06/12/21 22:36 Home Medications Medication Instructions Recorded Confirmed Last Taken Type Aspirin EC [Halfprin EC] 81 mg PO QDAY 06/12/21 06/12/21 Unknown History Cholecalciferol Vit D3 [Vitamin D3 4,000 unit PO QDAY 06/12/21 06/12/21 Unknown History 1,000 UNIT TAB] Clopidogrel [Plavix] 75 mg PO QDAY 06/12/21 06/12/21 Unknown History Memantine [Namenda] 5 mg PO BID 06/12/21 06/12/21 Unknown History Mirtazapine [Remeron] 15 mg PO HS 06/12/21 06/12/21 Unknown History QUEtiapine [SEROquel] 100 mg PO HS 06/12/21 06/12/21 Unknown History Quetiapine Fumarate [SEROquel] 50 mg PO QDAY 06/12/21 06/12/21 Unknown History donepeziL [Aricept] 10 mg PO HS 06/12/21 06/12/21 Unknown History Active Meds: Active Medications Aspirin (Aspirin Ec 81 Mg Tab) 81 mg PO QDAY [facility] Last Admin: 06/30/21 09:13 Dose: 81 mg Cholecalciferol (Cholecalciferol (Vit D3) 1000 Unit (25 Mcg) Tab) 4,000 unit PO QDAY [facility] Last Admin: 06/30/21 09:14 Dose: 4,000 unit Clonazepam (Clonazepam 0.5 Mg Tab) 0.5 mg PO BID [facility] Last Admin: 06/30/21 21:14 Dose: 0.5 mg Clopidogrel Bisulfate (Clopidogrel 75 Mg Tab) 75 mg PO QDAY [facility] Last Admin: 06/30/21 09:13 Dose: 75 mg Donepezil HCl (Donepezil 10 Mg Tab) 10 mg PO [facility] Last Admin: 06/30/21 21:14 Dose: 10 mg Loperamide HCl (Loperamide 2 Mg Cap) 2 mg PO Q6H PRN PRN Reason: Diarrhea Memantine (Memantine 5 Mg Tab) 5 mg PO BID [facility] Last Admin: 06/30/21 21:14 Dose: 5 mg Mirtazapine (Mirtazapine 15 Mg Tab) 15 mg PO [facility] Last Admin: 06/30/21 21:14 Dose: 15 mg Quetiapine Fumarate (Quetiapine 100 Mg Tab) 300 mg PO QHS [facility] Last Admin: 06/30/21 21:14 Dose: 300 mg Quetiapine Fumarate (Quetiapine 200 Mg Tab) 200 mg PO DAILY [facility] Last Admin: 06/30/21 09:14 Dose: 200 mg Valproic Acid (Valproic Acid 250 Mg/5 Ml Oral Liqd) 250 mg PO TID [facility] Last Admin: 06/30/21 20:16 Dose: 250 mg Ziprasidone (Ziprasidone Mesylate 20 Mg Vial) 20 mg IM Q4H PRN PRN Reason: Agitation Last Admin: 06/17/21 11:04 Dose: 20 mg Results - Results Labs/Vitals: Laboratory Last Values WBC 4.6 K/mm3 (4.5-11.0) 06/12/21 23:42 RBC 3.08 M/mm3 (3.65-5.03) L 06/12/21 23:42 Hgb 9.8 gm/dl (11.8-15.2) L 06/12/21 23:42 Hct 30.3 % (35.5-45.6) L 06/12/21 23:42 MCV 98 fl (84-94) H 06/12/21 23:42 MCH 32 pg (28-32) 06/12/21 23:42 MCHC 32 % (32-34) 06/12/21 23:42 RDW 16.4 % (13.2-15.2) H 06/12/21 23:42 Plt Count 269 K/mm3 (140-440) 06/12/21 23:42 Lymph % (Auto) 27.4 % (13.4-35.0) 06/12/21 23:42 Emery % (Auto) 9.4 % (0.0-7.3) H 06/12/21 23:42 Eos % (Auto) 1.4 % (0.0-4.3) 06/12/21 23:42 Baso % (Auto) 0.5 % (0.0-1.8) 06/12/21 23:42 Lymph # (Auto) 1.2 K/mm3 (1.2-5.4) 06/12/21 23:42 Emery # (Auto) 0.4 K/mm3 (0.0-0.8) 06/12/21 23:42 Eos # (Auto) 0.1 K/mm3 (0.0-0.4) 06/12/21 23: Baso # (Auto) 0.0 K/mm3 (0.0-0.1) 06/12/21 23:42 Seg Neutrophils % 61.3 % (40.0-70.0) 06/12/21 23:42 Seg Neutrophils # 2.8 K/mm3 (1.8-7.7) 06/12/21 23:42 Sodium 138 mmol/L (137-145) 06/12/21 23:42 Potassium 4.2 mmol/L (3.6-5.0) 06/12/21 23:42 Chloride 103.5 mmol/L (98-107) 06/12/21 23:42 Carbon Dioxide 27 mmol/L (22-30) 06/12/21 23:42 Anion Gap 12 mmol/L 06/12/21 23:42 BUN 22 mg/dL (9-20) H 06/12/21 23:42 Creatinine 0.7 mg/dL (0.8-1.3) L 06/12/21 23:42 Estimated GFR > 60 ml/min 06/12/21 23:42 BUN/Creatinine Ratio 31 % 06/12/21 23:42 Glucose 95 mg/dL (75-100) 06/12/21 23:42 Hemoglobin A1c 5.6 % (4-6) 06/12/21 23:42 Calcium 8.6 mg/dL (8.4-10.2) 06/12/21 23:42 Total Bilirubin 0.20 mg/dL (0.1-1.2) 06/12/21 23:42 AST 24 units/L (5-40) 06/12/21 23:42 ALT 29 units/L (7-56) 06/12/21 23:42 Alkaline Phosphatase 96 units/L (35-129) 06/12/21 23:42 Total Protein 7.5 g/dL (6.3-8.2) 06/12/21 23:42 Albumin 3.4 g/dL (3.9-5) L 06/12/21 23:42 Albumin/Globulin Ratio 0.8 % 06/12/21 23:42 Triglycerides 50 mg/dL (2-149) 06/12/21 23:42 Cholesterol 164 mg/dL (50-199) 06/12/21 23:42 LDL Cholesterol Direct 93 mg/dL (50-130) 06/12/21 23:42 HDL Cholesterol 65 mg/dL (40-59) H 06/12/21 23:42 Cholesterol/HDL Ratio 2.52 % 06/12/21 23:42 TSH 2.150 mlU/mL (0.270-4.200) 06/12/21 23:42 Hepatitis A IgM Ab Non-reactive (NonReactive) 06/12/21 23:42 Hep Bs Antigen Non-reactive (Negative) 06/12/21 23:42 Hep B Core IgM Ab Non-reactive (NonReactive) 06/12/21 23:42 Hepatitis C Antibody Non-reactive (NonReactive) 06/12/21 23:42 Last Vital Signs Temp 98.8 F 06/30/21 20:00 Pulse 101 H 06/30/21 20:00 Resp 16 06/30/21 20:00 BP 124/64 06/30/21 20:00 Pulse Ox 94 06/30/21 20:00
[2021-07-01] MEDS: clonazePAM 0.5 MG TAB PO SCH ×2 (09:50→22:07)
[2021-07-01] MEDS: CLOPIDOGREL 75 MG TAB PO SCH (09:50)
[2021-07-01] MEDS: MEMANTINE 5 MG TAB PO SCH ×2 (09:50→22:04)
[2021-07-01] MEDS: ASPIRIN EC 81 MG TAB PO SCH (09:50)
[2021-07-01] MEDS: CHOLECALCIFEROL (VIT D3) 1000 UNIT (25 mcg) TAB PO SCH (09:50)
[2021-07-01] MEDS: VALPROIC ACID 250 MG/5 ML ORAL LIQD PO SCH ×3 (09:50→22:07)
[2021-07-01] MEDS: QUEtiapine 200 MG TAB PO SCH (09:50)
[2021-07-01] MEDS: MIRTAZAPINE 15 MG TAB PO SCH (22:04)
[2021-07-01] MEDS: QUEtiapine 100 MG TAB PO SCH (22:05)
[2021-07-01] MEDS: DONEPEZIL 10 MG TAB PO SCH (22:07)
[2021-07-02] MEDS: CHOLECALCIFEROL (VIT D3) 1000 UNIT (25 mcg) TAB PO SCH (09:14)
[2021-07-02] MEDS: MEMANTINE 5 MG TAB PO SCH ×2 (09:14→21:41)
[2021-07-02] MEDS: ASPIRIN EC 81 MG TAB PO SCH (09:14)
[2021-07-02] MEDS: CLOPIDOGREL 75 MG TAB PO SCH (09:14)
[2021-07-02] MEDS: VALPROIC ACID 250 MG/5 ML ORAL LIQD PO SCH ×3 (09:14→20:21)
[2021-07-02] MEDS: clonazePAM 0.5 MG TAB PO SCH ×2 (09:14→21:41)
[2021-07-02] MEDS: QUEtiapine 200 MG TAB PO SCH (09:15)
--- NOTE | 2021-07-02 09:17 | Progress Note ---
Subjective Date of service: 07/02/21 Principal diagnosis: Dementia with Behavioral Disturbance Subjective Comment: The patient was seen today. He is sitting in the dayroom eating. He is a lot more calm and cooperative. He is still talkative. He says he slept well and denies SI/HI. The patient is awaiting placement and will discharge once this is secure. REVIEW OF SYSTEMS Constitutional: Negative for weight loss ENT: Negative for stridor Respiratory: Negative for cough or hemoptysis All other systems reviewed and are negative MENTAL STATUS EXAMINATION Unable to assess Assessment (1)Dementia with Behavioral Disturbance Current Visit: Yes Status: Acute Treatment Plan Patient admitted for inpatient psychiatric evaluation, medication adjustment and close monitoring The patient's behavior, mood, sleep and appetite will be closely monitored. Patient enrolled in individual and group therapeutic sessions and encouraged to attend. Patient provided with a safe and structured environment. Patient's physical health needs will be addressed by the Hospitalist. Hospitalist Consulted Labs including CBC, CMP, Lipid profile and Hemoglobin A1C levels ordered for baseline reference Social Assessment will be completed and the End Packer will work with patient and family to ensure a suitable and safe disposition Medication adjustment will be made as clinically indicated No changes made today Usual Wellness Yazidism/Preservation: - Start Trazodone 50 mg po QHS & 50 mg po QHS PRN between 10 PM & 2 AM for insomnia - Start Melatonin 5 mg po QHS to promote circadian rhythm The patient agreed on the treatment plan, understood the risk, benefit, alternative treatment, potential consequence of no treatment, and gave informed consent. Estimated days: 7 Post hospital care: primary care provider, psychiatric provider Case staffed with Dr. Carrion Medications and Allergies Allergies Allergy/AdvReac Type Severity Reaction Status Date / Time morphine Allergy Unknown Verified 06/12/21 22:36 Home Medications Medication Instructions Recorded Confirmed Last Taken Type Aspirin EC [Halfprin EC] 81 mg PO QDAY 06/12/21 06/12/21 Unknown History Cholecalciferol Vit D3 [Vitamin D3 4,000 unit PO QDAY 06/12/21 06/12/21 Unknown History 1,000 UNIT TAB] Clopidogrel [Plavix] 75 mg PO QDAY 06/12/21 06/12/21 Unknown History Memantine [Namenda] 5 mg PO BID 06/12/21 06/12/21 Unknown History Mirtazapine [Remeron] 15 mg PO HS 06/12/21 06/12/21 Unknown History QUEtiapine [SEROquel] 100 mg PO 06/12/21 06/12/21 Unknown History Quetiapine Fumarate [SEROquel] 50 mg PO QDAY 06/12/21 06/12/21 Unknown History donepeziL [Aricept] 10 mg PO HS 06/12/21 06/12/21 Unknown History Active Meds: Active Medications Aspirin (Aspirin Ec 81 Mg Tab) 81 mg PO QDAY [facility] Last Admin: 07/01/21 09:50 Dose: 81 mg Cholecalciferol (Cholecalciferol (Vit D3) 1000 Unit (25 Mcg) Tab) 4,000 unit PO QDAY [facility] Last Admin: 07/01/21 09:50 Dose: 4,000 unit Clonazepam (Clonazepam 0.5 Mg Tab) 0.5 mg PO BID [facility] Last Admin: 07/01/21 22:07 Dose: 0.5 mg Clopidogrel Bisulfate (Clopidogrel 75 Mg Tab) 75 mg PO QDAY [facility] Last Admin: 07/01/21 09:50 Dose: 75 mg Donepezil HCl (Donepezil 10 Mg Tab) 10 mg PO [facility] Last Admin: 07/01/21 22:07 Dose: 10 mg Loperamide HCl (Loperamide 2 Mg Cap) 2 mg PO Q6H PRN PRN Reason: Diarrhea Memantine (Memantine 5 Mg Tab) 5 mg PO BID [facility] Last Admin: 07/01/21 22:04 Dose: 5 mg Mirtazapine (Mirtazapine 15 Mg Tab) 15 mg PO [facility] Last Admin: 07/01/21 22:04 Dose: 15 mg Quetiapine Fumarate (Quetiapine 100 Mg Tab) 300 mg PO QHS [facility] Last Admin: 07/01/21 22:05 Dose: 300 mg Quetiapine Fumarate (Quetiapine 200 Mg Tab) 200 mg PO DAILY [facility] Last Admin: 07/01/21 09:50 Dose: 200 mg Valproic Acid (Valproic Acid 250 Mg/5 Ml Oral Liqd) 250 mg PO TID [facility] Last Admin: 07/01/21 22:07 Dose: 250 mg Ziprasidone (Ziprasidone Mesylate 20 Mg Vial) 20 mg IM Q4H PRN PRN Reason: Agitation Last Admin: 06/17/21 11:04 Dose: 20 mg Results - Results Labs/Vitals: Laboratory Last Values WBC 4.6 K/mm3 (4.5-11.0) 06/12/21 23:42 RBC 3.08 M/mm3 (3.65-5.03) L 06/12/21 23:42 Hgb 9.8 gm/dl (11.8-15.2) L 06/12/21 23:42 Hct 30.3 % (35.5-45.6) L 06/12/21 23:42 MCV 98 fl (84-94) H 06/12/21 23:42 MCH 32 pg (28-32) 06/12/21 23:42 MCHC 32 % (32-34) 06/12/21 23:42 RDW 16.4 % (13.2-15.2) H 06/12/21 23:42 Plt Count 269 K/mm3 (140-440) 06/12/21 23:42 Lymph % (Auto) 27.4 % (13.4-35.0) 06/12/21 23:42 Barry % (Auto) 9.4 % (0.0-7.3) H 06/12/21 23:42 Eos % (Auto) 1.4 % (0.0-4.3) 06/12/21 23:42 Baso % (Auto) 0.5 % (0.0-1.8) 06/12/21 23:42 Lymph # (Auto) 1.2 K/mm3 (1.2-5.4) 06/12/21 23:42 Barry # (Auto) 0.4 K/mm3 (0.0-0.8) 06/12/21 23:42 Eos # (Auto) 0.1 K/mm3 (0.0-0.4) 06/12/21 23:42 Baso # (Auto) 0.0 K/mm3 (0.0-0.1) 06/12/21 23:42 Seg Neutrophils % 61.3 % (40.0-70.0) 06/12/21 23:42 Seg Neutrophils # 2.8 K/mm3 (1.8-7.7) 06/12/21 23:42 Sodium 138 mmol/L (137-145) 06/12/21 23:42 Potassium 4.2 mmol/L (3.6-5.0) 06/12/21 23:42 Chloride 103.5 mmol/L (98-107) 06/12/21 23:42 Carbon Dioxide 27 mmol/L (22-30) 06/12/21 23:42 Anion Gap 12 mmol/L 06/12/21 23:42 BUN 22 mg/dL (9-20) H 06/12/21 23:42 Creatinine 0.7 mg/dL (0.8-1.3) L 06/12/21 23:42 Estimated GFR > 60 ml/min 06/12/21 23:42 BUN/Creatinine Ratio 31 % 06/12/21 23:42 Glucose 95 mg/dL (75-100) 06/12/21 23:42 Hemoglobin A1c 5.6 % (4-6) 06/12/21 23:42 Calcium 8.6 mg/dL (8.4-10.2) 06/12/21 23:42 Total Bilirubin 0.20 mg/dL (0.1-1.2) 06/12/21 23:42 AST 24 units/L (5-40) 06/12/21 23:42 ALT 29 units/L (7-56) 06/12/21 23:42 Alkaline Phosphatase 96 units/L (35-129) 06/12/21 23:42 Total Protein 7.5 g/dL (6.3-8.2) 06/12/21 23:42 Albumin 3.4 g/dL (3.9-5) L 06/12/21 23:42 Albumin/Globulin Ratio 0.8 % 06/12/21 23:42 Triglycerides 50 mg/dL (2-149) 06/12/21 23:42 Cholesterol 164 mg/dL (50-199) 06/12/21 23:42 LDL Cholesterol Direct 93 mg/dL (50-130) 06/12/21 23:42 HDL Cholesterol 65 mg/dL (40-59) H 06/12/21 23:42 Cholesterol/HDL Ratio 2.52 % 06/12/21 23:42 TSH 2.150 mlU/mL (0.270-4.200) 06/12/21 23:42 Hepatitis A IgM Ab Non-reactive (NonReactive) 06/12/21 23:42 Hep Bs Antigen Non-reactive (Negative) 06/12/21 23:42 Hep B Core IgM Ab Non-reactive (NonReactive) 06/12/21 23:42 Hepatitis C Antibody Non-reactive (NonReactive) 06/12/21 23:42 Last Vital Signs Temp 98.8 F 06/30/21 20:00 Pulse 101 H 06/30/21 20:00 Resp 16 06/30/21 20:00 BP 124/64 06/30/21 20:00 Pulse Ox 94 06/30/21 20:00
--- NOTE | 2021-07-02 19:51 | Progress Note ---
Assessment and Plan - Patient Problems (1) Vascular dementia with behavioral disturbance Current Visit: Yes Status: Acute Plan to address problem: Verbal prompting, verbal redirection, benzodiazepine therapy as clinically indicated. (2) Cerebral atherosclerosis Current Visit: Yes Status: Acute Plan to address problem: Risk factor reduction continue antiplatelet therapy. (3) Coronary artery disease Current Visit: Yes Status: Acute Plan to address problem: Respect reduction, continue antiplatelet therapy, continue statin therapy. (4) Hypertension Current Visit: Yes Status: Acute Qualifiers: Hypertension type: primary hypertension Qualified Code(s): I10 - Essential (primary) hypertension Plan to address problem: Monitor blood pressure every shift, continue medical management (5) Hyperlipidemia Current Visit: Yes Status: Acute Plan to address problem: Low-cholesterol diet, statin therapy, supportive care. (6) Advance care planning Current Visit: Yes Status: Acute Plan to address problem: Disease education conducted, care plan discussed, diagnoses discussed, prognosis discussed, patient is full code, +30 minutes. History Interval history: 76 YO Male with Vascular Dementia with Behavioral Disturbance, Cerebral Atherosclerosis, HTN, CAD S/P CABG on antiplatelet therapy, HLD admitted to [facility] unit for psychiatric stabilization. Consult placed by Dr. Yonug for medical management. Patient seen and evaluated in the recreation room. Patient remains confused with tangential thinking. No reported nursing events. Patient denies pain. Patient remains minimally cooperative but is at baseline level of cognition and and function. Hospitalist Physical - Constitutional Vitals: Temp Pulse Resp BP Pulse Ox 98.8 F 101 H 16 124/64 94 06/30/21 20:00 06/30/21 20:00 06/30/21 20:00 06/30/21 20:00 06/30/21 20:00 General appearance: Present: no acute distress - EENT Eyes: Present: PERRL ENT: hearing decreased - Neck Neck: Present: supple - Respiratory Respiratory effort: normal Respiratory: bilateral: CTA - Cardiovascular Rhythm: regular Heart Sounds: Present: S1 & S2 - Extremities Extremities: no ischemia Peripheral Pulses: within normal limits - Abdominal General gastrointestinal: soft, non-tender, non-distended - Integumentary Integumentary: Present: clear, dry - Psychiatric Psychiatric: cooperative - Neurologic Neurologic: CNII-XII intact Results - Labs CBC & Chem 7: 06/12/21 23:42 06/12/21 23:42 Labs: Laboratory Last Values WBC 4.6 K/mm3 (4.5-11.0) 06/12/21 23:42 RBC 3.08 M/mm3 (3.65-5.03) L 06/12/21 23:42 Hgb 9.8 gm/dl (11.8-15.2) L 06/12/21 23:42 Hct 30.3 % (35.5-45.6) L 06/12/21 23:42 MCV 98 fl (84-94) H 06/12/21 23:42 MCH 32 pg (28-32) 06/12/21 23:42 MCHC 32 % (32-34) 06/12/21 23:42 RDW 16.4 % (13.2-15.2) H 06/12/21 23:42 Plt Count 269 K/mm3 (140-440) 06/12/21 23:42 Lymph % (Auto) 27.4 % (13.4-35.0) 06/12/21 23:42 [place] % (Auto) 9.4 % (0.0-7.3) H 06/12/21 23:42 Eos % (Auto) 1.4 % (0.0-4.3) 06/12/21 23:42 Baso % (Auto) 0.5 % (0.0-1.8) 06/12/21 23:42 Lymph # (Auto) 1.2 K/mm3 (1.2-5.4) 06/12/21 23:42 [place] # (Auto) 0.4 K/mm3 (0.0-0.8) 06/12/21 23:42 Eos # (Auto) 0.1 K/mm3 (0.0-0.4) 06/12/21 23:42 Baso # (Auto) 0.0 K/mm3 (0.0-0.1) 06/12/21 23:42 Seg Neutrophils % 61.3 % (40.0-70.0) 06/12/21 23:42 Seg Neutrophils # 2.8 K/mm3 (1.8-7.7) 06/12/21 23:42 Sodium 138 mmol/L (137-145) 06/12/21 23:42 Potassium 4.2 mmol/L (3.6-5.0) 06/12/21 23:42 Chloride 103.5 mmol/L (98-107) 06/12/21 23:42 Carbon Dioxide 27 mmol/L (22-30) 06/12/21 23:42 Anion Gap 12 mmol/L 06/12/21 23:42 BUN 22 mg/dL (9-20) H 06/12/21 23:42 Creatinine 0.7 mg/dL (0.8-1.3) L 06/12/21 23:42 Estimated GFR > 60 ml/min 06/12/21 23:42 BUN/Creatinine Ratio 31 % 06/12/21 23:42 Glucose 95 mg/dL (75-100) 06/12/21 23:42 Hemoglobin A1c 5.6 % (4-6) 06/12/21 23:42 Calcium 8.6 mg/dL (8.4-10.2) 06/12/21 23:42 Total Bilirubin 0.20 mg/dL (0.1-1.2) 06/12/21 23:42 AST 24 units/L (5-40) 06/12/21 23:42 ALT 29 units/L (7-56) 06/12/21 23:42 Alkaline Phosphatase 96 units/L (35-129) 06/12/21 23:42 Total Protein 7.5 g/dL (6.3-8.2) 06/12/21 23:42 Albumin 3.4 g/dL (3.9-5) L 06/12/21 23:42 Albumin/Globulin Ratio 0.8 % 06/12/21 23:42 Triglycerides 50 mg/dL (2-149) 06/12/21 23:42 Cholesterol 164 mg/dL (50-199) 06/12/21 23:42 LDL Cholesterol Direct 93 mg/dL (50-130) 06/12/21 23:42 HDL Cholesterol 65 mg/dL (40-59) H 06/12/21 23:42 Cholesterol/HDL Ratio 2.52 % 06/12/21 23:42 TSH 2.150 mlU/mL (0.270-4.200) 06/12/21 23:42 Hepatitis A IgM Ab Non-reactive (NonReactive) 06/12/21 23:42 Hep Bs Antigen Non-reactive (Negative) 06/12/21 23:42 Hep B Core IgM Ab Non-reactive (NonReactive) 06/12/21 23:42 Hepatitis C Antibody Non-reactive (NonReactive) 06/12/21 23:42 [place]/IV: Voiding Method Toilet Active Medications - Current Medications Current Medications: Generic Name Dose Route Start Last Admin Trade Name Freq PRN Reason Stop Dose Admin Aspirin 81 mg 06/13/21 10:00 07/02/21 09:14 Aspirin Ec 81 Mg Tab PO 81 mg QDAY PEDRO Administration Cholecalciferol 4,000 unit 06/13/21 10:00 07/02/21 09:14 Cholecalciferol (Vit D3) 1000 Unit (25 Mcg) Tab PO 4,000 unit QDAY PEDRO Administration Clonazepam 0.5 mg 06/17/21 10:00 07/02/21 09:14 Clonazepam 0.5 Mg Tab PO 0.5 mg BID PEDRO Administration Clopidogrel Bisulfate 75 mg 06/13/21 10:00 07/02/21 09:14 Clopidogrel 75 Mg Tab PO 75 mg QDAY PEDRO Administration Donepezil HCl 10 mg 06/13/21 22:00 07/01/21 22:07 Donepezil 10 Mg Tab PO 10 mg HS PEDRO Administration Loperamide HCl 2 mg 06/16/21 11:00 Loperamide 2 Mg Cap PO Q6H PRN Diarrhea Memantine 5 mg 06/13/21 10:00 07/02/21 09:14 Memantine 5 Mg Tab PO 5 mg BID PEDRO Administration Mirtazapine 15 mg 06/13/21 22:00 07/01/21 22:04 Mirtazapine 15 Mg Tab PO 15 mg HS PEDRO Administration Quetiapine Fumarate 300 mg 06/17/21 22:00 07/01/21 22:05 Quetiapine 100 Mg Tab PO 300 mg QHS PEDRO Administration Quetiapine Fumarate 200 mg 06/24/21 11:00 07/02/21 09:15 Quetiapine 200 Mg Tab PO 200 mg DAILY PEDRO Administration Valproic Acid 250 mg 06/23/21 14:00 07/02/21 14:17 Valproic Acid 250 Mg/5 Ml Oral Liqd PO 250 mg TID PEDRO Administration Ziprasidone 20 mg 06/17/21 08:30 06/17/21 11:04 Ziprasidone Mesylate 20 Mg Vial IM 20 mg Q4H PRN Administration Agitation Nutrition/Malnutrition Assess - Dietary Evaluation Nutrition/Malnutrition Findings: Nutrition Notes Start: 06/19/21 11:00 Freq: Status: Active Protocol: Document 06/19/21 11:00 CONORGEOVANNA (Rec: 06/19/21 11:03 JANINE [id number]) Nutrition Notes Need for Assessment generated from: LOS Initial or Follow up Brief Note Current Diet Cardiac Height 5 ft 5 in Weight 77.5 kg [place] Body Weight (kg) 61.81 BMI 28.4 Weight Status Overweight Subjective/Other Information Pt screened for LOS. Pt has consumed 88% of meals since admission. Percent of energy/protein needs met: 100% energy 96% pro Burn Absent Trauma Absent Current % PO Good (75-100%) Minimum of two criteria No Is patient on ventilator? No Is Patient Ambulatory and/or Out of Bed Yes REE-([place]-[facility]. Jeor-ambulatory/OOB) [ 1874.444 NUTR.[email or web address]] Calculation Used for Recommendations [place]-[facility] Additional Notes Pro needs 1-1.2g/k-93g/ day Fluid needs 1ml/kcal Nutrition Intervention Revisit per MD consult or patient Sign Off request:
--- NOTE | 2021-07-02 19:53 | Progress Note ---
Assessment and Plan - Patient Problems (1) Vascular dementia with behavioral disturbance Current Visit: Yes Status: Acute (2) Cerebral atherosclerosis Current Visit: Yes Status: Acute (3) Coronary artery disease Current Visit: Yes Status: Acute (4) Hypertension Current Visit: Yes Status: Acute Qualifiers: Hypertension type: primary hypertension Qualified Code(s): I10 - Essential (primary) hypertension (5) Hyperlipidemia Current Visit: Yes Status: Acute (6) Advance care planning Current Visit: Yes Status: Acute History Interval history: 76 YO Male with Vascular Dementia with Behavioral Disturbance, Cerebral Atherosclerosis, HTN, CAD S/P CABG on antiplatelet therapy, HLD admitted to [facility] unit for psychiatric stabilization. Consult placed by Dr. Young for medical management. Patient seen and evaluated in the recreation room. Patient remains confused with tangential thinking. No reported nursing events. Patient remains minimally cooperative but is at baseline level of cognition and and function. Hospitalist Physical - Constitutional Vitals: Temp Pulse Resp BP Pulse Ox 98.8 F 101 H 16 124/64 94 06/30/21 20:00 06/30/21 20:00 06/30/21 20:00 06/30/21 20:00 06/30/21 20:00 General appearance: Present: no acute distress - EENT Eyes: Present: PERRL ENT: hearing decreased - Neck Neck: Present: supple - Respiratory Respiratory effort: normal Respiratory: bilateral: CTA - Cardiovascular Rhythm: regular Heart Sounds: Present: S1 & S2 - Extremities Extremities: no ischemia Peripheral Pulses: within normal limits - Abdominal General gastrointestinal: soft, non-tender, non-distended - Integumentary Integumentary: Present: clear, dry - Psychiatric Psychiatric: cooperative - Neurologic Neurologic: CNII-XII intact Results - Labs CBC & Chem 7: 06/12/21 23:42 06/12/21 23:42 Labs: Laboratory Last Values WBC 4.6 K/mm3 (4.5-11.0) 06/12/21 23:42 RBC 3.08 M/mm3 (3.65-5.03) L 06/12/21 23:42 Hgb 9.8 gm/dl (11.8-15.2) L 06/12/21 23:42 Hct 30.3 % (35.5-45.6) L 06/12/21 23:42 MCV 98 fl (84-94) H 06/12/21 23:42 MCH 32 pg (28-32) 06/12/21 23:42 MCHC 32 % (32-34) 06/12/21 23:42 RDW 16.4 % (13.2-15.2) H 06/12/21 23:42 Plt Count 269 K/mm3 (140-440) 06/12/21 23:42 Lymph % (Auto) 27.4 % (13.4-35.0) 06/12/21 23:42 [place] % (Auto) 9.4 % (0.0-7.3) H 06/12/21 23:42 Eos % (Auto) 1.4 % (0.0-4.3) 06/12/21 23:42 Baso % (Auto) 0.5 % (0.0-1.8) 06/12/21 23:42 Lymph # (Auto) 1.2 K/mm3 (1.2-5.4) 06/12/21 23:42 [place] # (Auto) 0.4 K/mm3 (0.0-0.8) 06/12/21 23:42 Eos # (Auto) 0.1 K/mm3 (0.0-0.4) 06/12/21 23:42 Baso # (Auto) 0.0 K/mm3 (0.0-0.1) 06/12/21 23:42 Seg Neutrophils % 61.3 % (40.0-70.0) 06/12/21 23:42 Seg Neutrophils # 2.8 K/mm3 (1.8-7.7) 06/12/21 23:42 Sodium 138 mmol/L (137-145) 06/12/21 23:42 Potassium 4.2 mmol/L (3.6-5.0) 06/12/21 23:42 Chloride 103.5 mmol/L (98-107) 06/12/21 23:42 Carbon Dioxide 27 mmol/L (22-30) 06/12/21 23:42 Anion Gap 12 mmol/L 06/12/21 23:42 BUN 22 mg/dL (9-20) H 06/12/21 23:42 Creatinine 0.7 mg/dL (0.8-1.3) L 06/12/21 23:42 Estimated GFR > 60 ml/min 06/12/21 23:42 BUN/Creatinine Ratio 31 % 06/12/21 23:42 Glucose 95 mg/dL (75-100) 06/12/21 23:42 Hemoglobin A1c 5.6 % (4-6) 06/12/21 23:42 Calcium 8.6 mg/dL (8.4-10.2) 06/12/21 23:42 Total Bilirubin 0.20 mg/dL (0.1-1.2) 06/12/21 23:42 AST 24 units/L (5-40) 06/12/21 23:42 ALT 29 units/L (7-56) 06/12/21 23:42 Alkaline Phosphatase 96 units/L (35-129) 06/12/21 23:42 Total Protein 7.5 g/dL (6.3-8.2) 06/12/21 23:42 Albumin 3.4 g/dL (3.9-5) L 06/12/21 23:42 Albumin/Globulin Ratio 0.8 % 06/12/21 23:42 Triglycerides 50 mg/dL (2-149) 06/12/21 23:42 Cholesterol 164 mg/dL (50-199) 06/12/21 23:42 LDL Cholesterol Direct 93 mg/dL (50-130) 06/12/21 23:42 HDL Cholesterol 65 mg/dL (40-59) H 06/12/21 23:42 Cholesterol/HDL Ratio 2.52 % 06/12/21 23:42 TSH 2.150 mlU/mL (0.270-4.200) 06/12/21 23:42 Hepatitis A IgM Ab Non-reactive (NonReactive) 06/12/21 23:42 Hep Bs Antigen Non-reactive (Negative) 06/12/21 23:42 Hep B Core IgM Ab Non-reactive (NonReactive) 06/12/21 23:42 Hepatitis C Antibody Non-reactive (NonReactive) 06/12/21 23:42 [place]/IV: Voiding Method Toilet Active Medications - Current Medications Current Medications: Generic Name Dose Route Start Last Admin Trade Name Freq PRN Reason Stop Dose Admin Aspirin 81 mg 06/13/21 10:00 07/02/21 09:14 Aspirin Ec 81 Mg Tab PO 81 mg QDAY PEDRO Administration Cholecalciferol 4,000 unit 06/13/21 10:00 07/02/21 09:14 Cholecalciferol (Vit D3) 1000 Unit (25 Mcg) Tab PO 4,000 unit QDAY PEDRO Administration Clonazepam 0.5 mg 06/17/21 10:00 07/02/21 09:14 Clonazepam 0.5 Mg Tab PO 0.5 mg BID PEDRO Administration Clopidogrel Bisulfate 75 mg 06/13/21 10:00 07/02/21 09:14 Clopidogrel 75 Mg Tab PO 75 mg QDAY PEDRO Administration Donepezil HCl 10 mg 06/13/21 22:00 07/01/21 22:07 Donepezil 10 Mg Tab PO 10 mg HS PEDRO Administration Loperamide HCl 2 mg 06/16/21 11:00 Loperamide 2 Mg Cap PO Q6H PRN Diarrhea Memantine 5 mg 06/13/21 10:00 07/02/21 09:14 Memantine 5 Mg Tab PO 5 mg BID PEDRO Administration Mirtazapine 15 mg 06/13/21 22:00 07/01/21 22:04 Mirtazapine 15 Mg Tab PO 15 mg HS PEDRO Administration Quetiapine Fumarate 300 mg 06/17/21 22:00 07/01/21 22:05 Quetiapine 100 Mg Tab PO 300 mg QHS PEDRO Administration Quetiapine Fumarate 200 mg 06/24/21 11:00 07/02/21 09:15 Quetiapine 200 Mg Tab PO 200 mg DAILY PEDRO Administration Valproic Acid 250 mg 06/23/21 14:00 07/02/21 14:17 Valproic Acid 250 Mg/5 Ml Oral Liqd PO 250 mg TID PEDRO Administration Ziprasidone 20 mg 06/17/21 08:30 06/17/21 11:04 Ziprasidone Mesylate 20 Mg Vial IM 20 mg Q4H PRN Administration Agitation Nutrition/Malnutrition Assess - Dietary Evaluation Nutrition/Malnutrition Findings: Nutrition Notes Start: 06/19/21 11:00 Freq: Status: Active Protocol: Document 06/19/21 11:00 JANINE (Rec: 06/19/21 11:03 JANINE [id number]) Nutrition Notes Need for Assessment generated from: LOS Initial or Follow up Brief Note Current Diet Cardiac Height 5 ft 5 in Weight 77.5 kg [place] Body Weight (kg) 61.81 BMI 28.4 Weight Status Overweight Subjective/Other Information Pt screened for LOS. Pt has consumed 88% of meals since admission. Percent of energy/protein needs met: 100% energy 96% pro Burn Absent Trauma Absent Current % PO Good (75-100%) Minimum of two criteria No Is patient on ventilator? No Is Patient Ambulatory and/or Out of Bed Yes REE-([facility]-ambulatory/OOB) [ 1874.444 NUTR.[email or web address]] Calculation Used for Recommendations [facility] Additional Notes Pro needs 1-1.2g/k-93g/ day Fluid needs 1ml/kcal Nutrition Intervention Revisit per MD consult or patient Sign Off request:
--- NOTE | 2021-07-02 19:54 | Progress Note ---
Assessment and Plan - Patient Problems (1) Vascular dementia with behavioral disturbance Current Visit: Yes Status: Acute Plan to address problem: Verbal prompting, verbal redirection, benzodiazepine therapy as clinically indicated. (2) Cerebral atherosclerosis Current Visit: Yes Status: Acute Plan to address problem: Risk factor reduction continue antiplatelet therapy. (3) Coronary artery disease Current Visit: Yes Status: Acute Plan to address problem: Respect reduction, continue antiplatelet therapy, continue statin therapy. (4) Hypertension Current Visit: Yes Status: Acute Qualifiers: Hypertension type: primary hypertension Qualified Code(s): I10 - Essential (primary) hypertension Plan to address problem: Monitor blood pressure every shift, continue medical management (5) Hyperlipidemia Current Visit: Yes Status: Acute Plan to address problem: Low-cholesterol diet, statin therapy, supportive care. (6) Advance care planning Current Visit: Yes Status: Acute Plan to address problem: Disease education conducted, care plan discussed, diagnoses discussed, prognosis discussed, patient is full code, +30 minutes. History Interval history: 76 YO Male with Vascular Dementia with Behavioral Disturbance, Cerebral Atherosclerosis, HTN, CAD S/P CABG on antiplatelet therapy, HLD admitted to [facility] unit for psychiatric stabilization. Consult placed by Dr. Young for medical management. Patient seen and evaluated in the recreation room. Patient remains confused with tangential thinking. No reported nursing events. Patient remains minimally cooperative but is at baseline level of cognition and and function. Hospitalist Physical - Constitutional Vitals: Temp Pulse Resp BP Pulse Ox 98.8 F 101 H 16 124/64 94 06/30/21 20:00 06/30/21 20:00 06/30/21 20:00 06/30/21 20:00 06/30/21 20:00 General appearance: Present: no acute distress - EENT Eyes: Present: PERRL ENT: hearing decreased - Neck Neck: Present: supple - Respiratory Respiratory effort: normal Respiratory: bilateral: CTA - Cardiovascular Rhythm: regular Heart Sounds: Present: S1 & S2 - Extremities Extremities: no ischemia Peripheral Pulses: within normal limits - Abdominal General gastrointestinal: soft, non-tender, non-distended - Integumentary Integumentary: Present: clear, dry - Psychiatric Psychiatric: cooperative - Neurologic Neurologic: CNII-XII intact Results - Labs CBC & Chem 7: 06/12/21 23:42 06/12/21 23:42 Labs: Laboratory Last Values WBC 4.6 K/mm3 (4.5-11.0) 06/12/21 23:42 RBC 3.08 M/mm3 (3.65-5.03) L 06/12/21 23:42 Hgb 9.8 gm/dl (11.8-15.2) L 06/12/21 23:42 Hct 30.3 % (35.5-45.6) L 06/12/21 23:42 MCV 98 fl (84-94) H 06/12/21 23:42 MCH 32 pg (28-32) 06/12/21 23:42 MCHC 32 % (32-34) 06/12/21 23:42 RDW 16.4 % (13.2-15.2) H 06/12/21:42 Plt Count 269 K/mm3 (140-440) 06/12/21 23:42 Lymph % (Auto) 27.4 % (13.4-35.0) 06/12/21 23:42 [place] % (Auto) 9.4 % (0.0-7.3) H 06/12/21 23:42 Eos % (Auto) 1.4 % (0.0-4.3) 06/12/21 23:42 Baso % (Auto) 0.5 % (0.0-1.8) 06/12/21: Lymph # (Auto) 1.2 K/mm3 (1.2-5.4) 06/12/21 23:42 [place] # (Auto) 0.4 K/mm3 (0.0-0.8) 06/12/21 23: Eos # (Auto) 0.1 K/mm3 (0.0-0.4) 06/12/21 23: Baso # (Auto) 0.0 K/mm3 (0.0-0.1) 06/12/21: Seg Neutrophils % 61.3 % (40.0-70.0) 06/12/21: Seg Neutrophils # 2.8 K/mm3 (1.8-7.7) 06/12/21 23:42 Sodium 138 mmol/L (137-145) 06/12/21 23: Potassium 4.2 mmol/L (3.6-5.0) 06/12/21 23:42 Chloride 103.5 mmol/L (98-107) 06/12/21 23:42 Carbon Dioxide 27 mmol/L (22-30) 06/12/21 23:42 Anion Gap 12 mmol/L 06/12/21 23:42 BUN 22 mg/dL (9-20) H 06/12/21 23:42 Creatinine 0.7 mg/dL (0.8-1.3) L 06/12/21 23:42 Estimated GFR > 60 ml/min 06/12/21 23:42 BUN/Creatinine Ratio 31 % 06/12/21 23:42 Glucose 95 mg/dL (75-100) 06/12/21 23:42 Hemoglobin A1c 5.6 % (4-6) 06/12/21 23:42 Calcium 8.6 mg/dL (8.4-10.2) 06/12/21 23:42 Total Bilirubin 0.20 mg/dL (0.1-1.2) 06/12/21 23:42 AST 24 units/L (5-40) 06/12/21 23:42 ALT 29 units/L (7-56) 06/12/21 23:42 Alkaline Phosphatase 96 units/L (35-129) 06/12/21 23:42 Total Protein 7.5 g/dL (6.3-8.2) 06/12/21 23:42 Albumin 3.4 g/dL (3.9-5) L 06/12/21 23:42 Albumin/Globulin Ratio 0.8 % 06/12/21 23:42 Triglycerides 50 mg/dL (2-149) 06/12/21 23:42 Cholesterol 164 mg/dL (50-199) 06/12/21 23:42 LDL Cholesterol Direct 93 mg/dL (50-130) 06/12/21 23:42 HDL Cholesterol 65 mg/dL (40-59) H 06/12/21 23:42 Cholesterol/HDL Ratio 2.52 % 06/12/21 23:42 TSH 2.150 mlU/mL (0.270-4.200) 06/12/21 23:42 Hepatitis A IgM Ab Non-reactive (NonReactive) 06/12/21 23: Hep Bs Antigen Non-reactive (Negative) 06/12/21: Hep B Core IgM Ab Non-reactive (NonReactive) 06/12/21 23:42 Hepatitis C Antibody Non-reactive (NonReactive) 06/12/21 23:42 [place]/IV: Voiding Method Toilet Active Medications - Current Medications Current Medications: Generic Name Dose Route Start Last Admin Trade Name Freq PRN Reason Stop Dose Admin Aspirin 81 mg 06/13/21 10:00 07/02/21 09:14 Aspirin Ec 81 Mg Tab PO 81 mg QDAY PEDRO Administration Cholecalciferol 4,000 unit 06/13/21 10:00 07/02/21 09:14 Cholecalciferol (Vit D3) 1000 Unit (25 Mcg) Tab PO 4,000 unit QDAY PEDRO Administration Clonazepam 0.5 mg 06/17/21 10:00 07/02/21 09:14 Clonazepam 0.5 Mg Tab PO 0.5 mg BID PEDRO Administration Clopidogrel Bisulfate 75 mg 06/13/21 10:00 07/02/21 09:14 Clopidogrel 75 Mg Tab PO 75 mg QDAY PEDRO Administration Donepezil HCl 10 mg 06/13/21 22:00 07/01/21 22:07 Donepezil 10 Mg Tab PO 10 mg HS PEDRO Administration Loperamide HCl 2 mg 06/16/21 11:00 Loperamide 2 Mg Cap PO Q6H PRN Diarrhea Memantine 5 mg 06/13/21 10:00 07/02/21 09:14 Memantine 5 Mg Tab PO 5 mg BID PEDRO Administration Mirtazapine 15 mg 06/13/21 22:00 07/01/21 22:04 Mirtazapine 15 Mg Tab PO 15 mg HS PEDRO Administration Quetiapine Fumarate 300 mg 06/17/21 22:00 07/01/21 22:05 Quetiapine 100 Mg Tab PO 300 mg QHS PEDRO Administration Quetiapine Fumarate 200 mg 06/24/21 11:00 07/02/21 09:15 Quetiapine 200 Mg Tab PO 200 mg DAILY PEDRO Administration Valproic Acid 250 mg 06/23/21 14:00 07/02/21 14:17 Valproic Acid 250 Mg/5 Ml Oral Liqd PO 250 mg TID PEDRO Administration Ziprasidone 20 mg 06/17/21 08:30 06/17/21 11:04 Ziprasidone Mesylate 20 Mg Vial IM 20 mg Q4H PRN Administration Agitation Nutrition/Malnutrition Assess - Dietary Evaluation Nutrition/Malnutrition Findings: Nutrition Notes Start: 06/19/21 11:00 Freq: Status: Active Protocol: Document 06/19/21 11:00 JANINE (Rec: 06/19/21 11:03 JANINE [id number]) Nutrition Notes Need for Assessment generated from: LOS Initial or Follow up Brief Note Current Diet Cardiac Height 5 ft 5 in Weight 77.5 kg [place] Body Weight (kg) 61.81 BMI 28.4 Weight Status Overweight Subjective/Other Information Pt screened for LOS. Pt has consumed 88% of meals since admission. Percent of energy/protein needs met: 100% energy 96% pro Burn Absent Trauma Absent Current % PO Good (75-100%) Minimum of two criteria No Is patient on ventilator? No Is Patient Ambulatory and/or Out of Bed Yes REE-([facility]-ambulatory/OOB) [ 1874.444 [email or web address]] [facility] Additional Notes Pro needs 1-1.2g/k-93g/ day Fluid needs 1ml/kcal Nutrition Intervention Revisit per MD consult or patient Sign Off request:
[2021-07-02] MEDS: QUEtiapine 100 MG TAB PO SCH (21:41)
[2021-07-02] MEDS: MIRTAZAPINE 15 MG TAB PO SCH (21:41)
[2021-07-02] MEDS: DONEPEZIL 10 MG TAB PO SCH (21:41)
--- NOTE | 2021-07-03 08:28 | Progress Note ---
Subjective Date of service: 07/03/21 Principal diagnosis: Dementia with Behavioral Disturbance Subjective Comment: 07/03/21: The patient was seen this morning. He states sleep was not good " I missed scientologist yesterday." The patient denies SI/HI/AVHs. REVIEW OF SYSTEMS Constitutional: Negative for weight loss ENT: Negative for stridor Respiratory: Negative for cough or hemoptysis All other systems reviewed and are negative MENTAL STATUS EXAMINATION Unable to assess Assessment (1)Dementia with Behavioral Disturbance Current Visit: Yes Status: Acute Treatment Plan Patient admitted for inpatient psychiatric evaluation, medication adjustment and close monitoring The patient's behavior, mood, sleep and appetite will be closely monitored. Patient enrolled in individual and group therapeutic sessions and encouraged to attend. Patient provided with a safe and structured environment. Patient's physical health needs will be addressed by the Hospitalist. Hospitalist Consulted Labs including CBC, CMP, Lipid profile and Hemoglobin A1C levels ordered for baseline reference Social Assessment will be completed and the Cell Operation Supervisor will work with patient and family to ensure a suitable and safe disposition Medication adjustment will be made as clinically indicated No changes made today Usual Wellness Yarsanism/Preservation: - Start Trazodone 50 mg po QHS & 50 mg po QHS PRN between 10 PM & 2 AM for insomnia - Start Melatonin 5 mg po QHS to promote circadian rhythm The patient agreed on the treatment plan, understood the risk, benefit, alternative treatment, potential consequence of no treatment, and gave informed consent. Estimated days: 7 Post hospital care: primary care provider, psychiatric provider Case staffed with Dr. Carrion Medications and Allergies Medications and Allergies Allergies Allergy/AdvReac Type Severity Reaction Status Date / Time morphine Allergy Unknown Verified 06/12/21 22:36 Home Medications Medication Instructions Recorded Confirmed Last Taken Type Aspirin EC [Halfprin EC] 81 mg PO QDAY 06/12/21 06/12/21 Unknown History Cholecalciferol Vit D3 [Vitamin D3 4,000 unit PO QDAY 06/12/21 06/12/21 Unknown History 1,000 UNIT TAB] Clopidogrel [Plavix] 75 mg PO QDAY 06/12/21 06/12/21 Unknown History Memantine [Namenda] 5 mg PO BID 06/12/21 06/12/21 Unknown History Mirtazapine [Remeron] 15 mg PO HS 06/12/21 06/12/21 Unknown History QUEtiapine [SEROquel] 100 mg PO HS 06/12/21 06/12/21 Unknown History Quetiapine Fumarate [SEROquel] 50 mg PO QDAY 06/12/21 06/12/21 Unknown History donepeziL [Aricept] 10 mg PO 06/12/21 06/12/21 Unknown History Active Meds: Active Medications Aspirin (Aspirin Ec 81 Mg Tab) 81 mg PO QDAY [facility] Last Admin: 07/02/21 09:14 Dose: 81 mg Cholecalciferol (Cholecalciferol (Vit D3) 1000 Unit (25 Mcg) Tab) 4,000 unit PO QDAY [facility] Last Admin: 07/02/21 09:14 Dose: 4,000 unit Clonazepam (Clonazepam 0.5 Mg Tab) 0.5 mg PO BID [facility] Last Admin: 07/02/21 21:41 Dose: 0.5 mg Clopidogrel Bisulfate (Clopidogrel 75 Mg Tab) 75 mg PO QDAY [facility] Last Admin: 07/02/21 09:14 Dose: 75 mg Donepezil HCl (Donepezil 10 Mg Tab) 10 mg PO [facility] Last Admin: 07/02/21 21:41 Dose: 10 mg Loperamide HCl (Loperamide 2 Mg Cap) 2 mg PO Q6H PRN PRN Reason: Diarrhea Memantine (Memantine 5 Mg Tab) 5 mg PO BID [facility] Last Admin: 07/02/21 21:41 Dose: 5 mg Mirtazapine (Mirtazapine 15 Mg Tab) 15 mg PO [facility] Last Admin: 07/02/21 21:41 Dose: 15 mg Quetiapine Fumarate (Quetiapine 100 Mg Tab) 300 mg PO QHS [facility] Last Admin: 07/02/21 21:41 Dose: 300 mg Quetiapine Fumarate (Quetiapine 200 Mg Tab) 200 mg PO DAILY [facility] Last Admin: 07/02/21 09:15 Dose: 200 mg Valproic Acid (Valproic Acid 250 Mg/5 Ml Oral Liqd) 250 mg PO TID [facility] Last Admin: 07/02/21 20:21 Dose: 250 mg Ziprasidone (Ziprasidone Mesylate 20 Mg Vial) 20 mg IM Q4H PRN PRN Reason: Agitation Last Admin: 06/17/21 11:04 Dose: 20 mg Results - Results Labs/Vitals: Laboratory Last Values WBC 4.6 K/mm3 (4.5-11.0) 02/14/22 23: RBC 3.08 M/mm3 (3.65-5.03) L 06/12/21 23: Hgb 9.8 gm/dl (11.8-15.2) L 06/12/21 23:42 Hct 30.3 % (35.5-45.6) L 06/12/21 23: MCV 98 fl (84-94) H 06/12/21 23: MCH 32 pg (28-32) 06/12/21 23: MCHC 32 % (32-34) 06/12/21 23: RDW 16.4 % (13.2-15.2) H 06/12/21: Plt Count 269 K/mm3 (140-440) 06/12/21: Lymph % (Auto) 27.4 % (13.4-35.0) 06/12/21: [place] % (Auto) 9.4 % (0.0-7.3) H 06/12/21: Eos % (Auto) 1.4 % (0.0-4.3) 06/12/21: Baso % (Auto) 0.5 % (0.0-1.8) 06/12/21: Lymph # (Auto) 1.2 K/mm3 (1.2-5.4) 06/12/21: [place] # (Auto) 0.4 K/mm3 (0.0-0.8) 06/12/21: Eos # (Auto) 0.1 K/mm3 (0.0-0.4) 06/12/21: Baso # (Auto) 0.0 K/mm3 (0.0-0.1) 06/12/21: Seg Neutrophils % 61.3 % (40.0-70.0) 06/12/21: Seg Neutrophils # 2.8 K/mm3 (1.8-7.7) 06/12/21 23: Sodium 138 mmol/L (137-145) 06/12/21: Potassium 4.2 mmol/L (3.6-5.0) 06/12/21: Chloride 103.5 mmol/L (98-107) 06/12/21 23:42 Carbon Dioxide 27 mmol/L (22-30) 06/12/21 23:42 Anion Gap 12 mmol/L 06/12/21 23:42 BUN 22 mg/dL (9-20) H 06/12/21 23:42 Creatinine 0.7 mg/dL (0.8-1.3) L 06/12/21 23:42 Estimated GFR > 60 ml/min 06/12/21 23:42 BUN/Creatinine Ratio 31 % 06/12/21 23:42 Glucose 95 mg/dL (75-100) 06/12/21 23:42 Hemoglobin A1c 5.6 % (4-6) 06/12/21 23:42 Calcium 8.6 mg/dL (8.4-10.2) 06/12/21 23:42 Total Bilirubin 0.20 mg/dL (0.1-1.2) 06/12/21 23:42 AST 24 units/L (5-40) 06/12/21 23:42 ALT 29 units/L (7-56) 06/12/21 23:42 Alkaline Phosphatase 96 units/L (35-129) 06/12/21 23:42 Total Protein 7.5 g/dL (6.3-8.2) 06/12/21 23:42 Albumin 3.4 g/dL (3.9-5) L 06/12/21 23:42 Albumin/Globulin Ratio 0.8 % 06/12/21 23:42 Triglycerides 50 mg/dL (2-149) 06/12/21 23:42 Cholesterol 164 mg/dL (50-199) 06/12/21 23:42 LDL Cholesterol Direct 93 mg/dL (50-130) 06/12/21 23:42 HDL Cholesterol 65 mg/dL (40-59) H 06/12/21 23:42 Cholesterol/HDL Ratio 2.52 % 06/12/21 23:42 TSH 2.150 mlU/mL (0.270-4.200) 06/12/21 23:42 Hepatitis A IgM Ab Non-reactive (NonReactive) 06/12/21 23:42 Hep Bs Antigen Non-reactive (Negative) 06/12/21 23:42 Hep B Core IgM Ab Non-reactive (NonReactive) 06/12/21 23:42 Hepatitis C Antibody Non-reactive (NonReactive) 06/12/21 23:42 Last Vital Signs Temp 98.8 F 06/30/21 20:00 Pulse 101 H 06/30/21 20:00 Resp 16 06/30/21 20:00 BP 124/64 06/30/21 20:00 Pulse Ox 94 06/30/21 20:00
[2021-07-03] MEDS: CHOLECALCIFEROL (VIT D3) 1000 UNIT (25 mcg) TAB PO SCH (09:17)
[2021-07-03] MEDS: VALPROIC ACID 250 MG/5 ML ORAL LIQD PO SCH ×3 (09:18→21:41)
[2021-07-03] MEDS: ASPIRIN EC 81 MG TAB PO SCH (09:18)
[2021-07-03] MEDS: QUEtiapine 200 MG TAB PO SCH (09:18)
[2021-07-03] MEDS: MEMANTINE 5 MG TAB PO SCH ×2 (09:18→21:41)
[2021-07-03] MEDS: CLOPIDOGREL 75 MG TAB PO SCH (09:18)
[2021-07-03] MEDS: clonazePAM 0.5 MG TAB PO SCH ×2 (09:18→21:41)
[2021-07-03] MEDS: LOPERAMIDE 2 MG CAP PO PRN (11:55)
[2021-07-03] MEDS: DONEPEZIL 10 MG TAB PO SCH (21:41)
[2021-07-03] MEDS: MIRTAZAPINE 15 MG TAB PO SCH (21:41)
[2021-07-03] MEDS: QUEtiapine 100 MG TAB PO SCH (21:41)
--- NOTE | 2021-07-04 09:15 | Progress Note ---
Subjective Date of service: 07/04/21 Principal diagnosis: Dementia with Behavioral Disturbance Subjective Comment: 07/04/21: The patient was seen eating breakfast. He is calm but continues to be confused. He states he is reading the bible. He states appetite and sleep as good. He denies any current suicidal/homicidal ideation. 07/03/21: The patient was seen this morning. He states sleep was not good " I missed anabaptist yesterday." The patient denies SI/HI/AVHs. REVIEW OF SYSTEMS Constitutional: Negative for weight loss ENT: Negative for stridor Respiratory: Negative for cough or hemoptysis All other systems reviewed and are negative MENTAL STATUS EXAMINATION Unable to assess Assessment (1)Dementia with Behavioral Disturbance Current Visit: Yes Status: Acute Treatment Plan Patient admitted for inpatient psychiatric evaluation, medication adjustment and close monitoring The patient's behavior, mood, sleep and appetite will be closely monitored. Patient enrolled in individual and group therapeutic sessions and encouraged to attend. Patient provided with a safe and structured environment. Patient's physical health needs will be addressed by the Hospitalist. Hospitalist Consulted Labs including CBC, CMP, Lipid profile and Hemoglobin A1C levels ordered for baseline reference Social Assessment will be completed and the Salesperson Art Objects will work with patient and family to ensure a suitable and safe disposition Medication adjustment will be made as clinically indicated No changes made today Usual Wellness Religion/Preservation: - Start Trazodone 50 mg po QHS & 50 mg po QHS PRN between 10 PM & 2 AM for insomnia - Start Melatonin 5 mg po QHS to promote circadian rhythm The patient agreed on the treatment plan, understood the risk, benefit, alternative treatment, potential consequence of no treatment, and gave informed consent. Estimated days: 7 Post hospital care: primary care provider, psychiatric provider Case staffed with Dr. Carrion Medications and Allergies Medications and Allergies Allergies Allergy/AdvReac Type Severity Reaction Status Date / Time morphine Allergy Unknown Verified 06/12/21 22:36 Home Medications Medication Instructions Recorded Confirmed Last Taken Type Aspirin EC [Halfprin EC] 81 mg PO QDAY 06/12/21 06/12/21 Unknown History Cholecalciferol Vit D3 [Vitamin D3 4,000 unit PO QDAY 06/12/21 06/12/21 Unknown History 1,000 UNIT TAB] Clopidogrel [Plavix] 75 mg PO QDAY 06/12/21 06/12/21 Unknown History Memantine [Namenda] 5 mg PO BID 06/12/21 06/12/21 Unknown History Mirtazapine [Remeron] 15 mg PO HS 06/12/21 06/12/21 Unknown History QUEtiapine [SEROquel] 100 mg PO HS 06/12/21 06/12/21 Unknown History Quetiapine Fumarate [SEROquel] 50 mg PO QDAY 06/12/21 06/12/21 Unknown History donepeziL [Aricept] 10 mg PO HS 06/12/21 06/12/21 Unknown History Active Meds: Active Medications Aspirin (Aspirin Ec 81 Mg Tab) 81 mg PO QDAY [facility] Last Admin: 07/03/21 09:18 Dose: 81 mg Cholecalciferol (Cholecalciferol (Vit D3) 1000 Unit (25 Mcg) Tab) 4,000 unit PO QDAY [facility] Last Admin: 07/03/21 09:17 Dose: 4,000 unit Clonazepam (Clonazepam 0.5 Mg Tab) 0.5 mg PO BID [facility] Last Admin: 07/03/21 21:41 Dose: 0.5 mg Clopidogrel Bisulfate (Clopidogrel 75 Mg Tab) 75 mg PO QDAY [facility] Last Admin: 07/03/21 09:18 Dose: 75 mg Donepezil HCl (Donepezil 10 Mg Tab) 10 mg PO [facility] Last Admin: 07/03/21 21:41 Dose: 10 mg Loperamide HCl (Loperamide 2 Mg Cap) 2 mg PO Q6H PRN PRN Reason: Diarrhea Last Admin: 07/03/21 11:55 Dose: 2 mg Memantine (Memantine 5 Mg Tab) 5 mg PO BID [facility] Last Admin: 07/03/21 21:41 Dose: 5 mg Mirtazapine (Mirtazapine 15 Mg Tab) 15 mg PO [facility] Last Admin: 07/03/21 21:41 Dose: 15 mg Quetiapine Fumarate (Quetiapine 100 Mg Tab) 300 mg PO QHS [facility] Last Admin: 07/03/21 21:41 Dose: 300 mg Quetiapine Fumarate (Quetiapine 200 Mg Tab) 200 mg PO DAILY [facility] Last Admin: 07/03/21 09:18 Dose: 200 mg Valproic Acid (Valproic Acid 250 Mg/5 Ml Oral Liqd) 250 mg PO TID [facility] Last Admin: 07/03/21 21:41 Dose: 250 mg Ziprasidone (Ziprasidone Mesylate 20 Mg Vial) 20 mg IM Q4H PRN PRN Reason: Agitation Last Admin: 06/17/21 11:04 Dose: 20 mg Results - Results Labs/Vitals: Laboratory Last Values WBC 4.6 K/mm3 (4.5-11.0) 06/12/21 23:42 RBC 3.08 M/mm3 (3.65-5.03) L 06/12/21 23:42 Hgb 9.8 gm/dl (11.8-15.2) L 06/12/21 23:42 Hct 30.3 % (35.5-45.6) L 06/12/21 23:42 MCV 98 fl (84-94) H 06/12/21 23:42 MCH 32 pg (28-32) 06/12/21 23:42 MCHC 32 % (32-34) 06/12/21 23:42 RDW 16.4 % (13.2-15.2) H 06/12/21 23:42 Plt Count 269 K/mm3 (140-440) 06/12/21 23:42 Lymph % (Auto) 27.4 % (13.4-35.0) 06/12/21 23:42 [place] % (Auto) 9.4 % (0.0-7.3) H 06/12/21 23:42 Eos % (Auto) 1.4 % (0.0-4.3) 06/12/21 23:42 Baso % (Auto) 0.5 % (0.0-1.8) 06/12/21 23:42 Lymph # (Auto) 1.2 K/mm3 (1.2-5.4) 06/12/21 23:42 [place] # (Auto) 0.4 K/mm3 (0.0-0.8) 06/12/21 23:42 Eos # (Auto) 0.1 K/mm3 (0.0-0.4) 06/12/21 23:42 Baso # (Auto) 0.0 K/mm3 (0.0-0.1) 06/12/21 23:42 Seg Neutrophils % 61.3 % (40.0-70.0) 06/12/21 23:42 Seg Neutrophils # 2.8 K/mm3 (1.8-7.7) 06/12/21 23:42 Sodium 138 mmol/L (137-145) 06/12/21 23:42 Potassium 4.2 mmol/L (3.6-5.0) 06/12/21 23:42 Chloride 103.5 mmol/L (98-107) 06/12/21 23:42 Carbon Dioxide 27 mmol/L (22-30) 06/12/21 23:42 Anion Gap 12 mmol/L 06/12/21 23:42 BUN 22 mg/dL (9-20) H 06/12/21 23:42 Creatinine 0.7 mg/dL (0.8-1.3) L 06/12/21 23:42 Estimated GFR > 60 ml/min 06/12/21 23:42 BUN/Creatinine Ratio 31 % 06/12/21 23:42 Glucose 95 mg/dL (75-100) 06/12/21 23:42 Hemoglobin A1c 5.6 % (4-6) 06/12/21 23:42 Calcium 8.6 mg/dL (8.4-10.2) 06/12/21 23:42 Total Bilirubin 0.20 mg/dL (0.1-1.2) 06/12/21 23:42 AST 24 units/L (5-40) 06/12/21 23:42 ALT 29 units/L (7-56) 06/12/21 23:42 Alkaline Phosphatase 96 units/L (35-129) 06/12/21 23:42 Total Protein 7.5 g/dL (6.3-8.2) 06/12/21 23:42 Albumin 3.4 g/dL (3.9-5) L 06/12/21 23:42 Albumin/Globulin Ratio 0.8 % 06/12/21 23:42 Triglycerides 50 mg/dL (2-149) 06/12/21 23:42 Cholesterol 164 mg/dL (50-199) 06/12/21 23:42 LDL Cholesterol Direct 93 mg/dL (50-130) 06/12/21 23:42 HDL Cholesterol 65 mg/dL (40-59) H 06/12/21 23:42 Cholesterol/HDL Ratio 2.52 % 06/12/21 23:42 TSH 2.150 mlU/mL (0.270-4.200) 06/12/21 23:42 Hepatitis A IgM Ab Non-reactive (NonReactive) 06/12/21 23:42 Hep Bs Antigen Non-reactive (Negative) 06/12/21 23:42 Hep B Core IgM Ab Non-reactive (NonReactive) 06/12/21 23:42 Hepatitis C Antibody Non-reactive (NonReactive) 06/12/21 23:42 Last Vital Signs Temp 98.1 F 07/03/21 19:47 Pulse 99 H 07/03/21 19:47 Resp 17 07/03/21 19:47 BP 115/62 07/03/21 19:47 Pulse Ox 96 07/03/21 19:47
[2021-07-04] MEDS: QUEtiapine 200 MG TAB PO SCH (10:16)
[2021-07-04] MEDS: MEMANTINE 5 MG TAB PO SCH ×2 (10:16→21:53)
[2021-07-04] MEDS: CHOLECALCIFEROL (VIT D3) 1000 UNIT (25 mcg) TAB PO SCH (10:16)
[2021-07-04] MEDS: ASPIRIN EC 81 MG TAB PO SCH (10:16)
[2021-07-04] MEDS: VALPROIC ACID 250 MG/5 ML ORAL LIQD PO SCH ×3 (10:16→21:51)
[2021-07-04] MEDS: clonazePAM 0.5 MG TAB PO SCH ×2 (10:16→21:52)
[2021-07-04] MEDS: CLOPIDOGREL 75 MG TAB PO SCH (10:16)
[2021-07-04] MEDS: MIRTAZAPINE 15 MG TAB PO SCH (21:52)
[2021-07-04] MEDS: DONEPEZIL 10 MG TAB PO SCH (21:52)
[2021-07-04] MEDS: QUEtiapine 100 MG TAB PO SCH (21:52)
[2021-07-05] MEDS: VALPROIC ACID 250 MG/5 ML ORAL LIQD PO SCH ×3 (08:35→20:18)
--- NOTE | 2021-07-05 09:20 | Progress Note ---
Subjective Date of service: 07/05/21 Principal diagnosis: Dementia with Behavioral Disturbance Subjective Comment: 07/05/21: The patient was seen eating breakfast. He is calm but continues to be confused. He was seen mixing up salt and sugar in his breakfast. No complains at this time. 07/04/21: The patient was seen eating breakfast. He is calm but continues to be confused. He states he is reading the bible. He states appetite and sleep as good. He denies any current suicidal/homicidal ideation. 07/03/21: The patient was seen this morning. He states sleep was not good " I missed pentecostal yesterday." The patient denies SI/HI/AVHs. REVIEW OF SYSTEMS Constitutional: Negative for weight loss ENT: Negative for stridor Respiratory: Negative for cough or hemoptysis All other systems reviewed and are negative MENTAL STATUS EXAMINATION Unable to assess Assessment (1)Dementia with Behavioral Disturbance Current Visit: Yes Status: Acute Treatment Plan Patient admitted for inpatient psychiatric evaluation, medication adjustment and close monitoring The patient's behavior, mood, sleep and appetite will be closely monitored. Patient enrolled in individual and group therapeutic sessions and encouraged to attend. Patient provided with a safe and structured environment. Patient's physical health needs will be addressed by the Hospitalist. Hospitalist Consulted Labs including CBC, CMP, Lipid profile and Hemoglobin A1C levels ordered for baseline reference Social Assessment will be completed and the Plaster Lather will work with patient and family to ensure a suitable and safe disposition Medication adjustment will be made as clinically indicated No changes made today Usual Wellness Catholic/Preservation: - Start Trazodone 50 mg po QHS & 50 mg po QHS PRN between 10 PM & 2 AM for insomnia - Start Melatonin 5 mg po QHS to promote circadian rhythm The patient agreed on the treatment plan, understood the risk, benefit, alternative treatment, potential consequence of no treatment, and gave informed consent. Estimated days: 0 Post hospital care: primary care provider, psychiatric provider Case staffed with Dr. Carrion Medications and Allergies Medications and Allergies Allergies Allergy/AdvReac Type Severity Reaction Status Date / Time morphine Allergy Unknown Verified 06/12/21 22:36 Home Medications Medication Instructions Recorded Confirmed Last Taken Type Aspirin EC [Halfprin EC] 81 mg PO QDAY 06/12/21 06/12/21 Unknown History Cholecalciferol Vit D3 [Vitamin D3 4,000 unit PO QDAY 06/12/21 06/12/21 Unknown History 1,000 UNIT TAB] Clopidogrel [Plavix] 75 mg PO QDAY 06/12/21 06/12/21 Unknown History Memantine [Namenda] 5 mg PO BID 06/12/21 06/12/21 Unknown History Mirtazapine [Remeron] 15 mg PO HS 06/12/21 06/12/21 Unknown History QUEtiapine [SEROquel] 100 mg PO HS 06/12/21 06/12/21 Unknown History Quetiapine Fumarate [SEROquel] 50 mg PO QDAY 06/12/21 06/12/21 Unknown History donepeziL [Aricept] 10 mg PO HS 06/12/21 06/12/21 Unknown History Active Meds: Active Medications Aspirin (Aspirin Ec 81 Mg Tab) 81 mg PO QDAY [facility] Last Admin: 07/04/21 10:16 Dose: 81 mg Cholecalciferol (Cholecalciferol (Vit D3) 1000 Unit (25 Mcg) Tab) 4,000 unit PO QDAY [facility] Last Admin: 07/04/21 10:16 Dose: 4,000 unit Clonazepam (Clonazepam 0.5 Mg Tab) 0.5 mg PO BID [facility] Last Admin: 07/04/21 21:52 Dose: 0.5 mg Clopidogrel Bisulfate (Clopidogrel 75 Mg Tab) 75 mg PO QDAY [facility] Last Admin: 07/04/21 10:16 Dose: 75 mg Donepezil HCl (Donepezil 10 Mg Tab) 10 mg PO [facility] Last Admin: 07/04/21 21:52 Dose: 10 mg Loperamide HCl (Loperamide 2 Mg Cap) 2 mg PO Q6H PRN PRN Reason: Diarrhea Last Admin: 07/03/21 11:55 Dose: 2 mg Memantine (Memantine 5 Mg Tab) 5 mg PO BID [facility] Last Admin: 07/04/21 21:53 Dose: 5 mg Mirtazapine (Mirtazapine 15 Mg Tab) 15 mg PO [facility] Last Admin: 07/04/21 21:52 Dose: 15 mg Quetiapine Fumarate (Quetiapine 100 Mg Tab) 300 mg PO QHS [facility] Last Admin: 07/04/21 21:52 Dose: 300 mg Quetiapine Fumarate (Quetiapine 200 Mg Tab) 200 mg PO DAILY [facility] Last Admin: 07/04/21 10:16 Dose: 200 mg Valproic Acid (Valproic Acid 250 Mg/5 Ml Oral Liqd) 250 mg PO TID [facility] Last Admin: 07/05/21 08:35 Dose: 250 mg Ziprasidone (Ziprasidone Mesylate 20 Mg Vial) 20 mg IM Q4H PRN PRN Reason: Agitation Last Admin: 06/17/21 11:04 Dose: 20 mg Results - Results Labs/Vitals: Laboratory Last Values WBC 4.6 K/mm3 (4.5-11.0) 06/12/21 23:42 RBC 3.08 M/mm3 (3.65-5.03) L 06/12/21 23:42 Hgb 9.8 gm/dl (11.8-15.2) L 06/12/21 23:42 Hct 30.3 % (35.5-45.6) L 06/12/21 23:42 MCV 98 fl (84-94) H 06/12/21 23:42 MCH 32 pg (28-32) 06/12/21 23:42 MCHC 32 % (32-34) 06/12/21 23:42 RDW 16.4 % (13.2-15.2) H 06/12/21 23:42 Plt Count 269 K/mm3 (140-440) 06/12/21 23:42 Lymph % (Auto) 27.4 % (13.4-35.0) 06/12/21 23:42 [place] % (Auto) 9.4 % (0.0-7.3) H 06/12/21 23:42 Eos % (Auto) 1.4 % (0.0-4.3) 06/12/21 23:42 Baso % (Auto) 0.5 % (0.0-1.8) 06/12/21 23:42 Lymph # (Auto) 1.2 K/mm3 (1.2-5.4) 06/12/21 23:42 [place] # (Auto) 0.4 K/mm3 (0.0-0.8) 06/12/21 23:42 Eos # (Auto) 0.1 K/mm3 (0.0-0.4) 06/12/21 23:42 Baso # (Auto) 0.0 K/mm3 (0.0-0.1) 06/12/21 23:42 Seg Neutrophils % 61.3 % (40.0-70.0) 06/12/21 23:42 Seg Neutrophils # 2.8 K/mm3 (1.8-7.7) 06/12/21 23:42 Sodium 138 mmol/L (137-145) 06/12/21 23:42 Potassium 4.2 mmol/L (3.6-5.0) 06/12/21 23:42 Chloride 103.5 mmol/L (98-107) 06/12/21 23:42 Carbon Dioxide 27 mmol/L (22-30) 06/12/21 23:42 Anion Gap 12 mmol/L 06/12/21 23:42 BUN 22 mg/dL (9-20) H 06/12/21 23:42 Creatinine 0.7 mg/dL (0.8-1.3) L 06/12/21 23:42 Estimated GFR > 60 ml/min 06/12/21 23:42 BUN/Creatinine Ratio 31 % 06/12/21 23:42 Glucose 95 mg/dL (75-100) 06/12/21 23:42 Hemoglobin A1c 5.6 % (4-6) 06/12/21 23:42 Calcium 8.6 mg/dL (8.4-10.2) 06/12/21 23:42 Total Bilirubin 0.20 mg/dL (0.1-1.2) 06/12/21 23:42 AST 24 units/L (5-40) 06/12/21 23:42 ALT 29 units/L (7-56) 06/12/21 23:42 Alkaline Phosphatase 96 units/L (35-129) 06/12/21 23:42 Total Protein 7.5 g/dL (6.3-8.2) 06/12/21 23:42 Albumin 3.4 g/dL (3.9-5) L 06/12/21 23:42 Albumin/Globulin Ratio 0.8 % 06/12/21 23:42 Triglycerides 50 mg/dL (2-149) 06/12/21 23:42 Cholesterol 164 mg/dL (50-199) 06/12/21 23:42 LDL Cholesterol Direct 93 mg/dL (50-130) 06/12/21 23:42 HDL Cholesterol 65 mg/dL (40-59) H 06/12/21 23:42 Cholesterol/HDL Ratio 2.52 % 06/12/21 23:42 TSH 2.150 mlU/mL (0.270-4.200) 06/12/21 23:42 Hepatitis A IgM Ab Non-reactive (NonReactive) 06/12/21 23: Hep Bs Antigen Non-reactive (Negative) 06/12/21 23: Hep B Core IgM Ab Non-reactive (NonReactive) 06/12/21 23: Hepatitis C Antibody Non-reactive (NonReactive) 06/12/21 23:42 Last Vital Signs Temp 97.6 F 07/04/21 08:27 Pulse 111 H 07/04/21 08:27 Resp 18 07/04/21 08:27 BP 119/71 07/04/21 08:27 Pulse Ox 92 07/04/21 08:27
[2021-07-05] MEDS: QUEtiapine 200 MG TAB PO SCH (09:30)
[2021-07-05] MEDS: CLOPIDOGREL 75 MG TAB PO SCH (09:31)
[2021-07-05] MEDS: MEMANTINE 5 MG TAB PO SCH ×2 (09:31→21:29)
[2021-07-05] MEDS: ASPIRIN EC 81 MG TAB PO SCH (09:31)
[2021-07-05] MEDS: clonazePAM 0.5 MG TAB PO SCH ×2 (09:31→21:29)
[2021-07-05] MEDS: CHOLECALCIFEROL (VIT D3) 1000 UNIT (25 mcg) TAB PO SCH (09:31)
[2021-07-05] MEDS: DONEPEZIL 10 MG TAB PO SCH (21:29)
[2021-07-05] MEDS: QUEtiapine 100 MG TAB PO SCH (21:30)
[2021-07-05] MEDS: MIRTAZAPINE 15 MG TAB PO SCH (21:30)
[2021-07-06] MEDS: VALPROIC ACID 250 MG/5 ML ORAL LIQD PO SCH ×3 (08:26→20:23)
[2021-07-06] MEDS: LOPERAMIDE 2 MG CAP PO PRN (08:43)
[2021-07-06] MEDS: MEMANTINE 5 MG TAB PO SCH ×2 (09:04→21:41)
[2021-07-06] MEDS: QUEtiapine 200 MG TAB PO SCH (09:04)
[2021-07-06] MEDS: CLOPIDOGREL 75 MG TAB PO SCH (09:04)
[2021-07-06] MEDS: CHOLECALCIFEROL (VIT D3) 1000 UNIT (25 mcg) TAB PO SCH (09:04)
[2021-07-06] MEDS: clonazePAM 0.5 MG TAB PO SCH ×2 (09:04→21:41)
[2021-07-06] MEDS: ASPIRIN EC 81 MG TAB PO SCH (09:04)
--- NOTE | 2021-07-06 09:09 | Progress Note ---
Subjective Date of service: 07/06/21 Principal diagnosis: Dementia with Behavioral Disturbance Subjective Comment: 07/06/21:The patient was seen eating breakfast. He is calm but continues to be confused " I want monopoly and games to go to the top drawer." He states appetite and sleep as good. He denies any current suicidal/homicidal ideation and denies hallucinations. 07/05/21: The patient was seen eating breakfast. He is calm but continues to be confused. He was seen mixing up salt and sugar in his breakfast. No complains at this time. 07/04/21: The patient was seen eating breakfast. He is calm but continues to be confused. He states he is reading the bible. He states appetite and sleep as good. He denies any current suicidal/homicidal ideation. 07/03/21: The patient was seen this morning. He states sleep was not good " I missed jew yesterday." The patient denies SI/HI/AVHs. REVIEW OF SYSTEMS Constitutional: Negative for weight loss ENT: Negative for stridor Respiratory: Negative for cough or hemoptysis All other systems reviewed and are negative MENTAL STATUS EXAMINATION Unable to assess Assessment (1)Dementia with Behavioral Disturbance Current Visit: Yes Status: Acute Treatment Plan Patient admitted for inpatient psychiatric evaluation, medication adjustment and close monitoring The patient's behavior, mood, sleep and appetite will be closely monitored. Patient enrolled in individual and group therapeutic sessions and encouraged to attend. Patient provided with a safe and structured environment. Patient's physical health needs will be addressed by the Hospitalist. Hospitalist Consulted Labs including CBC, CMP, Lipid profile and Hemoglobin A1C levels ordered for baseline reference Social Assessment will be completed and the Manager Of Software will work with patient and family to ensure a suitable and safe disposition Medication adjustment will be made as clinically indicated No changes made today Usual Wellness Episcopalian/Preservation: - Start Trazodone 50 mg po QHS & 50 mg po QHS PRN between 10 PM & 2 AM for insomnia - Start Melatonin 5 mg po QHS to promote circadian rhythm The patient agreed on the treatment plan, understood the risk, benefit, alternative treatment, potential consequence of no treatment, and gave informed consent. Estimated days: 0 Post hospital care: primary care provider, psychiatric provider Case staffed with Dr. Carrion Medications and Allergies Medications and Allergies Allergies Allergy/AdvReac Type Severity Reaction Status Date / Time morphine Allergy Unknown Verified 06/12/21 22:36 Home Medications Medication Instructions Recorded Confirmed Last Taken Type Aspirin EC [Halfprin EC] 81 mg PO QDAY 06/12/21 06/12/21 Unknown History Cholecalciferol Vit D3 [Vitamin D3 4,000 unit PO QDAY 06/12/21 06/12/21 Unknown History 1,000 UNIT TAB] Clopidogrel [Plavix] 75 mg PO QDAY 06/12/21 06/12/21 Unknown History Memantine [Namenda] 5 mg PO BID 06/12/21 06/12/21 Unknown History Mirtazapine [Remeron] 15 mg PO HS 06/12/21 06/12/21 Unknown History QUEtiapine [SEROquel] 100 mg PO HS 06/12/21 06/12/21 Unknown History Quetiapine Fumarate [SEROquel] 50 mg PO QDAY 06/12/21 06/12/21 Unknown History donepeziL [Aricept] 10 mg PO HS 06/12/21 06/12/21 Unknown History Active Meds: Active Medications Aspirin (Aspirin Ec 81 Mg Tab) 81 mg PO QDAY [facility] Last Admin: 07/06/21 09:04 Dose: 81 mg Cholecalciferol (Cholecalciferol (Vit D3) 1000 Unit (25 Mcg) Tab) 4,000 unit PO QDAY [facility] Last Admin: 07/06/21 09:04 Dose: 4,000 unit Clonazepam (Clonazepam 0.5 Mg Tab) 0.5 mg PO BID [facility] Last Admin: 07/06/21 09:04 Dose: 0.5 mg Clopidogrel Bisulfate (Clopidogrel 75 Mg Tab) 75 mg PO QDAY [facility] Last Admin: 07/06/21 09:04 Dose: 75 mg Donepezil HCl (Donepezil 10 Mg Tab) 10 mg PO [facility] Last Admin: 07/05/21 21:29 Dose: 10 mg Loperamide HCl (Loperamide 2 Mg Cap) 2 mg PO Q6H PRN PRN Reason: Diarrhea Last Admin: 07/06/21 08:43 Dose: 2 mg Memantine (Memantine 5 Mg Tab) 5 mg PO BID [facility] Last Admin: 07/06/21 09:04 Dose: 5 mg Mirtazapine (Mirtazapine 15 Mg Tab) 15 mg PO [facility] Last Admin: 07/05/21 21:30 Dose: 15 mg Quetiapine Fumarate (Quetiapine 100 Mg Tab) 300 mg PO QHS [facility] Last Admin: 07/05/21 21:30 Dose: 300 mg Quetiapine Fumarate (Quetiapine 200 Mg Tab) 200 mg PO DAILY [facility] Last Admin: 07/06/21 09:04 Dose: 200 mg Valproic Acid (Valproic Acid 250 Mg/5 Ml Oral Liqd) 250 mg PO TID [facility] Last Admin: 07/06/21 08:26 Dose: 250 mg Ziprasidone (Ziprasidone Mesylate 20 Mg Vial) 20 mg IM Q4H PRN PRN Reason: Agitation Last Admin: 06/17/21 11:04 Dose: 20 mg Results - Results Labs/Vitals: Laboratory Last Values WBC 4.6 K/mm3 (4.5-11.0) 06/12/21 23:42 RBC 3.08 M/mm3 (3.65-5.03) L 06/12/21 23:42 Hgb 9.8 gm/dl (11.8-15.2) L 06/12/21 23:42 Hct 30.3 % (35.5-45.6) L 06/12/21 23:42 MCV 98 fl (84-94) H 06/12/21 23:42 MCH 32 pg (28-32) 06/12/21 23:42 MCHC 32 % (32-34) 06/12/21 23:42 RDW 16.4 % (13.2-15.2) H 06/12/21 23:42 Plt Count 269 K/mm3 (140-440) 06/12/21 23:42 Lymph % (Auto) 27.4 % (13.4-35.0) 06/12/21 23:42 [place] % (Auto) 9.4 % (0.0-7.3) H 06/12/21 23:42 Eos % (Auto) 1.4 % (0.0-4.3) 06/12/21 23:42 Baso % (Auto) 0.5 % (0.0-1.8) 06/12/21 23:42 Lymph # (Auto) 1.2 K/mm3 (1.2-5.4) 06/12/21 23:42 [place] # (Auto) 0.4 K/mm3 (0.0-0.8) 06/12/21 23:42 Eos # (Auto) 0.1 K/mm3 (0.0-0.4) 06/12/21 23:42 Baso # (Auto) 0.0 K/mm3 (0.0-0.1) 06/12/21 23:42 Seg Neutrophils % 61.3 % (40.0-70.0) 06/12/21 23:42 Seg Neutrophils # 2.8 K/mm3 (1.8-7.7) 06/12/21 23:42 Sodium 138 mmol/L (137-145) 06/12/21 23:42 Potassium 4.2 mmol/L (3.6-5.0) 06/12/21 23:42 Chloride 103.5 mmol/L (98-107) 06/12/21 23:42 Carbon Dioxide 27 mmol/L (22-30) 06/12/21 23:42 Anion Gap 12 mmol/L 06/12/21 23:42 BUN 22 mg/dL (9-20) H 06/12/21 23:42 Creatinine 0.7 mg/dL (0.8-1.3) L 06/12/21 23:42 Estimated GFR > 60 ml/min 06/12/21 23:42 BUN/Creatinine Ratio 31 % 06/12/21 23:42 Glucose 95 mg/dL (75-100) 06/12/21 23:42 Hemoglobin A1c 5.6 % (4-6) 06/12/21 23:42 Calcium 8.6 mg/dL (8.4-10.2) 06/12/21 23:42 Total Bilirubin 0.20 mg/dL (0.1-1.2) 06/12/21 23:42 AST 24 units/L (5-40) 06/12/21 23:42 ALT 29 units/L (7-56) 06/12/21 23:42 Alkaline Phosphatase 96 units/L (35-129) 06/12/21 23:42 Total Protein 7.5 g/dL (6.3-8.2) 06/12/21 23:42 Albumin 3.4 g/dL (3.9-5) L 06/12/21 23:42 Albumin/Globulin Ratio 0.8 % 06/12/21 23:42 Triglycerides 50 mg/dL (2-149) 06/12/21 23:42 Cholesterol 164 mg/dL (50-199) 06/12/21 23:42 LDL Cholesterol Direct 93 mg/dL (50-130) 06/12/21 23:42 HDL Cholesterol 65 mg/dL (40-59) H 06/12/21 23:42 Cholesterol/HDL Ratio 2.52 % 06/12/21 23:42 TSH 2.150 mlU/mL (0.270-4.200) 06/12/21 23:42 Hepatitis A IgM Ab Non-reactive (NonReactive) 06/12/21 23: Hep Bs Antigen Non-reactive (Negative) 06/12/21 23:42 Hep B Core IgM Ab Non-reactive (NonReactive) 06/12/21 23:42 Hepatitis C Antibody Non-reactive (NonReactive) 06/12/21 23:42 Last Vital Signs Temp 97.5 F L 07/06/21 08:57 Pulse 101 H 07/05/21 20:24 Resp 20 07/06/21 08:57 BP 100/57 07/06/21 08:57 Pulse Ox 92 07/05/21 20:24
[2021-07-06] MEDS: DONEPEZIL 10 MG TAB PO SCH (21:40)
[2021-07-06] MEDS: MIRTAZAPINE 15 MG TAB PO SCH (21:41)
[2021-07-06] MEDS: QUEtiapine 100 MG TAB PO SCH (21:41)
[2021-07-07] MEDS: VALPROIC ACID 250 MG/5 ML ORAL LIQD PO SCH ×3 (08:32→20:40)
[2021-07-07] MEDS: clonazePAM 0.5 MG TAB PO SCH ×2 (09:32→21:22)
[2021-07-07] MEDS: CHOLECALCIFEROL (VIT D3) 1000 UNIT (25 mcg) TAB PO SCH (09:32)
[2021-07-07] MEDS: CLOPIDOGREL 75 MG TAB PO SCH (09:32)
[2021-07-07] MEDS: MEMANTINE 5 MG TAB PO SCH ×2 (09:32→21:22)
[2021-07-07] MEDS: QUEtiapine 200 MG TAB PO SCH (09:32)
[2021-07-07] MEDS: ASPIRIN EC 81 MG TAB PO SCH (09:33)
--- NOTE | 2021-07-07 10:34 | Progress Note ---
Subjective Date of service: 07/07/21 Principal diagnosis: Dementia with Behavioral Disturbance Subjective Comment: The patient was seen today. He is talkative. He is calm and cooperative. He denies SI/HI or hallucinations. He is talking about his clothes. He is carrying a jacket in his hand. 07/06/21:The patient was seen eating breakfast. He is calm but continues to be confused " I want monopoly and games to go to the top drawer." He states appetite and sleep as good. He denies any current suicidal/homicidal ideation and denies hallucinations. 07/05/21: The patient was seen eating breakfast. He is calm but continues to be confused. He was seen mixing up salt and sugar in his breakfast. No complains at this time. 07/04/21: The patient was seen eating breakfast. He is calm but continues to be confused. He states he is reading the bible. He states appetite and sleep as good. He denies any current suicidal/homicidal ideation. 07/03/21: The patient was seen this morning. He states sleep was not good " I missed orthodoxy yesterday." The patient denies SI/HI/AVHs. REVIEW OF SYSTEMS Constitutional: Negative for weight loss ENT: Negative for stridor Respiratory: Negative for cough or hemoptysis All other systems reviewed and are negative MENTAL STATUS EXAMINATION Unable to assess Assessment (1)Dementia with Behavioral Disturbance Current Visit: Yes Status: Acute Treatment Plan Patient admitted for inpatient psychiatric evaluation, medication adjustment and close monitoring The patient's behavior, mood, sleep and appetite will be closely monitored. Patient enrolled in individual and group therapeutic sessions and encouraged to attend. Patient provided with a safe and structured environment. Patient's physical health needs will be addressed by the Hospitalist. Hospitalist Consulted Labs including CBC, CMP, Lipid profile and Hemoglobin A1C levels ordered for baseline reference Social Assessment will be completed and the Bag Valver will work with patient and family to ensure a suitable and safe disposition Medication adjustment will be made as clinically indicated No changes made today Usual Wellness Hinduism/Preservation: - Start Trazodone 50 mg po QHS & 50 mg po QHS PRN between 10 PM & 2 AM for insomnia - Start Melatonin 5 mg po QHS to promote circadian rhythm The patient agreed on the treatment plan, understood the risk, benefit, alternative treatment, potential consequence of no treatment, and gave informed consent. Estimated days: 0 Post hospital care: primary care provider, psychiatric provider Case staffed with Dr. Carrion Medications and Allergies Allergies Allergy/AdvReac Type Severity Reaction Status Date / Time morphine Allergy Unknown Verified 06/12/21 22:36 Home Medications Medication Instructions Recorded Confirmed Last Taken Type Aspirin EC [Halfprin EC] 81 mg PO QDAY 06/12/21 06/12/21 Unknown History Cholecalciferol Vit D3 [Vitamin D3 4,000 unit PO QDAY 06/12/21 06/12/21 Unknown History 1,000 UNIT TAB] Clopidogrel [Plavix] 75 mg PO QDAY 06/12/21 06/12/21 Unknown History Memantine [Namenda] 5 mg PO BID 06/12/21 06/12/21 Unknown History Mirtazapine [Remeron] 15 mg PO HS 06/12/21 06/12/21 Unknown History QUEtiapine [SEROquel] 100 mg PO HS 06/12/21 06/12/21 Unknown History Quetiapine Fumarate [SEROquel] 50 mg PO QDAY 06/12/21 06/12/21 Unknown History donepeziL [Aricept] 10 mg PO HS 06/12/21 06/12/21 Unknown History Active Meds: Active Medications Aspirin (Aspirin Ec 81 Mg Tab) 81 mg PO QDAY [facility] Last Admin: 07/07/21 09:33 Dose: 81 mg Cholecalciferol (Cholecalciferol (Vit D3) 1000 Unit (25 Mcg) Tab) 4,000 unit PO QDAY [facility] Last Admin: 07/07/21 09:32 Dose: 4,000 unit Clonazepam (Clonazepam 0.5 Mg Tab) 0.5 mg PO BID [facility] Last Admin: 07/07/21 09:32 Dose: 0.5 mg Clopidogrel Bisulfate (Clopidogrel 75 Mg Tab) 75 mg PO QDAY [facility] Last Admin: 07/07/21 09:32 Dose: 75 mg Donepezil HCl (Donepezil 10 Mg Tab) 10 mg PO [facility] Last Admin: 07/06/21 21:40 Dose: 10 mg Loperamide HCl (Loperamide 2 Mg Cap) 2 mg PO Q6H PRN PRN Reason: Diarrhea Last Admin: 07/06/21 08:43 Dose: 2 mg Memantine (Memantine 5 Mg Tab) 5 mg PO BID [facility] Last Admin: 07/07/21 09:32 Dose: 5 mg Mirtazapine (Mirtazapine 15 Mg Tab) 15 mg PO HS [facility] Last Admin: 07/06/21 21:41 Dose: 15 mg Quetiapine Fumarate (Quetiapine 100 Mg Tab) 300 mg PO QHS [facility] Last Admin: 07/06/21 21:41 Dose: 300 mg Quetiapine Fumarate (Quetiapine 200 Mg Tab) 200 mg PO DAILY [facility] Last Admin: 07/07/21 09:32 Dose: 200 mg Valproic Acid (Valproic Acid 250 Mg/5 Ml Oral Liqd) 250 mg PO TID [facility] Last Admin: 07/07/21 08:32 Dose: 250 mg Ziprasidone (Ziprasidone Mesylate 20 Mg Vial) 20 mg IM Q4H PRN PRN Reason: Agitation Last Admin: 06/17/21 11:04 Dose: 20 mg Results - Results Labs/Vitals: Laboratory Last Values WBC 4.6 K/mm3 (4.5-11.0) 06/12/21 23:42 RBC 3.08 M/mm3 (3.65-5.03) L 06/12/21 23:42 Hgb 9.8 gm/dl (11.8-15.2) L 06/12/21 23:42 Hct 30.3 % (35.5-45.6) L 06/12/21 23:42 MCV 98 fl (84-94) H 06/12/21 23:42 MCH 32 pg (28-32) 06/12/21 23:42 MCHC 32 % (32-34) 06/12/21 23:42 RDW 16.4 % (13.2-15.2) H 06/12/21 23:42 Plt Count 269 K/mm3 (140-440) 06/12/21 23:42 Lymph % (Auto) 27.4 % (13.4-35.0) 06/12/21 23:42 [place] % (Auto) 9.4 % (0.0-7.3) H 06/12/21 23:42 Eos % (Auto) 1.4 % (0.0-4.3) 06/12/21 23:42 Baso % (Auto) 0.5 % (0.0-1.8) 06/12/21 23:42 Lymph # (Auto) 1.2 K/mm3 (1.2-5.4) 06/12/21 23:42 [place] # (Auto) 0.4 K/mm3 (0.0-0.8) 06/12/21 23:42 Eos # (Auto) 0.1 K/mm3 (0.0-0.4) 06/12/21 23:42 Baso # (Auto) 0.0 K/mm3 (0.0-0.1) 06/12/21 23:42 Seg Neutrophils % 61.3 % (40.0-70.0) 06/12/21 23:42 Seg Neutrophils # 2.8 K/mm3 (1.8-7.7) 06/12/21 23:42 Sodium 138 mmol/L (137-145) 06/12/21 23:42 Potassium 4.2 mmol/L (3.6-5.0) 06/12/21 23:42 Chloride 103.5 mmol/L (98-107) 06/12/21 23:42 Carbon Dioxide 27 mmol/L (22-30) 06/12/21 23:42 Anion Gap 12 mmol/L 06/12/21 23:42 BUN 22 mg/dL (9-20) H 06/12/21 23:42 Creatinine 0.7 mg/dL (0.8-1.3) L 06/12/21 23:42 Estimated GFR > 60 ml/min 06/12/21 23:42 BUN/Creatinine Ratio 31 % 06/12/21 23:42 Glucose 95 mg/dL (75-100) 06/12/21 23:42 Hemoglobin A1c 5.6 % (4-6) 06/12/21 23:42 Calcium 8.6 mg/dL (8.4-10.2) 06/12/21 23:42 Total Bilirubin 0.20 mg/dL (0.1-1.2) 06/12/21 23:42 AST 24 units/L (5-40) 06/12/21 23:42 ALT 29 units/L (7-56) 06/12/21 23:42 Alkaline Phosphatase 96 units/L (35-129) 06/12/21 23:42 Total Protein 7.5 g/dL (6.3-8.2) 06/12/21 23:42 Albumin 3.4 g/dL (3.9-5) L 06/12/21 23:42 Albumin/Globulin Ratio 0.8 % 06/12/21 23:42 Triglycerides 50 mg/dL (2-149) 06/12/21 23:42 Cholesterol 164 mg/dL (50-199) 06/12/21 23:42 LDL Cholesterol Direct 93 mg/dL (50-130) 06/12/21 23:42 HDL Cholesterol 65 mg/dL (40-59) H 06/12/21 23:42 Cholesterol/HDL Ratio 2.52 % 06/12/21 23:42 TSH 2.150 mlU/mL (0.270-4.200) 06/12/21 23:42 Hepatitis A IgM Ab Non-reactive (NonReactive) 06/12/21 23: Hep Bs Antigen Non-reactive (Negative) 06/12/21: Hep B Core IgM Ab Non-reactive (NonReactive) 06/12/21 23: Hepatitis C Antibody Non-reactive (NonReactive) 06/12/21 23:42 Last Vital Signs Temp 97.7 F 07/07/21 09:28 Pulse 111 H 07/07/21 09:28 Resp 20 07/07/21 09:28 BP 119/52 07/07/21 09:28 Pulse Ox 96 07/07/21 09:28
[2021-07-07] MEDS: MIRTAZAPINE 15 MG TAB PO SCH (21:22)
[2021-07-07] MEDS: DONEPEZIL 10 MG TAB PO SCH (21:22)
[2021-07-07] MEDS: QUEtiapine 100 MG TAB PO SCH (21:22)
[2021-07-08] MEDS: VALPROIC ACID 250 MG/5 ML ORAL LIQD PO SCH ×3 (08:38→21:44)
--- NOTE | 2021-07-08 08:53 | Progress Note ---
Subjective Date of service: 07/08/21 Principal diagnosis: Dementia with Behavioral Disturbance Subjective Comment: The patient was seen today. He is sitting in the dayroom eating breakfast. He says he woke up too late. The patient says he feels alright, when asked. He denies SI/HI or hallucinations. He is talkative as usual. 07/07 The patient was seen today. He is talkative. He is calm and cooperative. He denies SI/HI or hallucinations. He is talking about his clothes. He is carrying a jacket in his hand. 07/06/21:The patient was seen eating breakfast. He is calm but continues to be confused " I want monopoly and games to go to the top drawer." He states appetite and sleep as good. He denies any current suicidal/homicidal ideation and denies hallucinations. 07/05/21: The patient was seen eating breakfast. He is calm but continues to be confused. He was seen mixing up salt and sugar in his breakfast. No complains at this time. 07/04/21: The patient was seen eating breakfast. He is calm but continues to be confused. He states he is reading the bible. He states appetite and sleep as good. He denies any current suicidal/homicidal ideation. 07/03/21: The patient was seen this morning. He states sleep was not good " I missed mosque yesterday." The patient denies SI/HI/AVHs. REVIEW OF SYSTEMS Constitutional: Negative for weight loss ENT: Negative for stridor Respiratory: Negative for cough or hemoptysis All other systems reviewed and are negative MENTAL STATUS EXAMINATION Unable to assess Assessment (1)Dementia with Behavioral Disturbance Current Visit: Yes Status: Acute Treatment Plan Patient admitted for inpatient psychiatric evaluation, medication adjustment and close monitoring The patient's behavior, mood, sleep and appetite will be closely monitored. Patient enrolled in individual and group therapeutic sessions and encouraged to attend. Patient provided with a safe and structured environment. Patient's physical health needs will be addressed by the Hospitalist. Hospitalist Consulted Labs including CBC, CMP, Lipid profile and Hemoglobin A1C levels ordered for baseline reference Social Assessment will be completed and the Race Relations Professor will work with patient and family to ensure a suitable and safe disposition Medication adjustment will be made as clinically indicated No changes made today Usual Wellness Pentecostalism/Preservation: - Start Trazodone 50 mg po QHS & 50 mg po QHS PRN between 10 PM & 2 AM for insomnia - Start Melatonin 5 mg po QHS to promote circadian rhythm The patient agreed on the treatment plan, understood the risk, benefit, alternative treatment, potential consequence of no treatment, and gave informed consent. Estimated days: 0 Post hospital care: primary care provider, psychiatric provider Case staffed with Dr. Carrion Medications and Allergies Allergies Allergy/AdvReac Type Severity Reaction Status Date / Time morphine Allergy Unknown Verified 06/12/21 22:36 Home Medications Medication Instructions Recorded Confirmed Last Taken Type Aspirin EC [Halfprin EC] 81 mg PO QDAY 06/12/21 06/12/21 Unknown History Cholecalciferol Vit D3 [Vitamin D3 4,000 unit PO QDAY 06/12/21 06/12/21 Unknown History 1,000 UNIT TAB] Clopidogrel [Plavix] 75 mg PO QDAY 06/12/21 06/12/21 Unknown History Memantine [Namenda] 5 mg PO BID 06/12/21 06/12/21 Unknown History Mirtazapine [Remeron] 15 mg PO HS 06/12/21 06/12/21 Unknown History QUEtiapine [SEROquel] 100 mg PO HS 06/12/21 06/12/21 Unknown History Quetiapine Fumarate [SEROquel] 50 mg PO QDAY 06/12/21 06/12/21 Unknown History donepeziL [Aricept] 10 mg PO HS 06/12/21 06/12/21 Unknown History Active Meds: Active Medications Aspirin (Aspirin Ec 81 Mg Tab) 81 mg PO QDAY [facility] Last Admin: 07/07/21 09:33 Dose: 81 mg Cholecalciferol (Cholecalciferol (Vit D3) 1000 Unit (25 Mcg) Tab) 4,000 unit PO QDAY [facility] Last Admin: 07/07/21 09:32 Dose: 4,000 unit Clonazepam (Clonazepam 0.5 Mg Tab) 0.5 mg PO BID [facility] Last Admin: 07/07/21 21:22 Dose: 0.5 mg Clopidogrel Bisulfate (Clopidogrel 75 Mg Tab) 75 mg PO QDAY [facility] Last Admin: 07/07/21 09:32 Dose: 75 mg Donepezil HCl (Donepezil 10 Mg Tab) 10 mg PO [facility] Last Admin: 07/07/21 21:22 Dose: 10 mg Loperamide HCl (Loperamide 2 Mg Cap) 2 mg PO Q6H PRN PRN Reason: Diarrhea Last Admin: 07/06/21 08:43 Dose: 2 mg Memantine (Memantine 5 Mg Tab) 5 mg PO BID [facility] Last Admin: 07/07/21 21:22 Dose: 5 mg Mirtazapine (Mirtazapine 15 Mg Tab) 15 mg PO HS [facility] Last Admin: 07/07/21 21:22 Dose: 15 mg Quetiapine Fumarate (Quetiapine 100 Mg Tab) 300 mg PO QHS [facility] Last Admin: 07/07/21 21:22 Dose: 300 mg Quetiapine Fumarate (Quetiapine 200 Mg Tab) 200 mg PO DAILY [facility] Last Admin: 07/07/21 09:32 Dose: 200 mg Valproic Acid (Valproic Acid 250 Mg/5 Ml Oral Liqd) 250 mg PO TID [facility] Last Admin: 07/08/21 08:38 Dose: 250 mg Ziprasidone (Ziprasidone Mesylate 20 Mg Vial) 20 mg IM Q4H PRN PRN Reason: Agitation Last Admin: 06/17/21 11:04 Dose: 20 mg Results - Results Labs/Vitals: Laboratory Last Values WBC 4.6 K/mm3 (4.5-11.0) 06/12/21 23:42 RBC 3.08 M/mm3 (3.65-5.03) L 06/12/21 23:42 Hgb 9.8 gm/dl (11.8-15.2) L 06/12/21 23:42 Hct 30.3 % (35.5-45.6) L 06/12/21 23:42 MCV 98 fl (84-94) H 06/12/21 23:42 MCH 32 pg (28-32) 06/12/21 23:42 MCHC 32 % (32-34) 06/12/21 23:42 RDW 16.4 % (13.2-15.2) H 06/12/21 23:42 Plt Count 269 K/mm3 (140-440) 06/12/21 23:42 Lymph % (Auto) 27.4 % (13.4-35.0) 06/12/21 23:42 [place] % (Auto) 9.4 % (0.0-7.3) H 06/12/21 23:42 Eos % (Auto) 1.4 % (0.0-4.3) 06/12/21 23:42 Baso % (Auto) 0.5 % (0.0-1.8) 06/12/21 23:42 Lymph # (Auto) 1.2 K/mm3 (1.2-5.4) 06/12/21 23:42 [place] # (Auto) 0.4 K/mm3 (0.0-0.8) 06/12/21 23:42 Eos # (Auto) 0.1 K/mm3 (0.0-0.4) 06/12/21 23:42 Baso # (Auto) 0.0 K/mm3 (0.0-0.1) 06/12/21 23:42 Seg Neutrophils % 61.3 % (40.0-70.0) 06/12/21 23:42 Seg Neutrophils # 2.8 K/mm3 (1.8-7.7) 06/12/21 23:42 Sodium 138 mmol/L (137-145) 06/12/21 23:42 Potassium 4.2 mmol/L (3.6-5.0) 06/12/21 23:42 Chloride 103.5 mmol/L (98-107) 06/12/21 23:42 Carbon Dioxide 27 mmol/L (22-30) 06/12/21 23:42 Anion Gap 12 mmol/L 06/12/21 23:42 BUN 22 mg/dL (9-20) H 06/12/21 23:42 Creatinine 0.7 mg/dL (0.8-1.3) L 06/12/21 23:42 Estimated GFR > 60 ml/min 06/12/21 23:42 BUN/Creatinine Ratio 31 % 06/12/21 23:42 Glucose 95 mg/dL (75-100) 06/12/21 23:42 Hemoglobin A1c 5.6 % (4-6) 06/12/21 23:42 Calcium 8.6 mg/dL (8.4-10.2) 06/12/21 23:42 Total Bilirubin 0.20 mg/dL (0.1-1.2) 06/12/21 23:42 AST 24 units/L (5-40) 06/12/21 23:42 ALT 29 units/L (7-56) 06/12/21 23:42 Alkaline Phosphatase 96 units/L (35-129) 06/12/21 23:42 Total Protein 7.5 g/dL (6.3-8.2) 06/12/21 23:42 Albumin 3.4 g/dL (3.9-5) L 06/12/21 23:42 Albumin/Globulin Ratio 0.8 % 06/12/21 23:42 Triglycerides 50 mg/dL (2-149) 06/12/21 23:42 Cholesterol 164 mg/dL (50-199) 06/12/21 23:42 LDL Cholesterol Direct 93 mg/dL (50-130) 06/12/21 23:42 HDL Cholesterol 65 mg/dL (40-59) H 06/12/21 23: Cholesterol/HDL Ratio 2.52 % 06/12/21 23: TSH 2.150 mlU/mL (0.270-4.200) 06/12/21 23:42 Hepatitis A IgM Ab Non-reactive (NonReactive) 06/12/21 23: Hep Bs Antigen Non-reactive (Negative) 06/12/21: Hep B Core IgM Ab Non-reactive (NonReactive) 06/12/21 23: Hepatitis C Antibody Non-reactive (NonReactive) 06/12/21 23:42 Last Vital Signs Temp 97.7 F 07/07/21 09:28 Pulse 111 H 07/07/21 09:28 Resp 20 07/07/21 09:28 BP 119/52 07/07/21 09:28 Pulse Ox 96 07/07/21 09:28
[2021-07-08] MEDS: clonazePAM 0.5 MG TAB PO SCH ×2 (09:58→21:45)
[2021-07-08] MEDS: CLOPIDOGREL 75 MG TAB PO SCH (09:58)
[2021-07-08] MEDS: MEMANTINE 5 MG TAB PO SCH ×2 (09:58→21:45)
[2021-07-08] MEDS: QUEtiapine 200 MG TAB PO SCH (09:58)
[2021-07-08] MEDS: CHOLECALCIFEROL (VIT D3) 1000 UNIT (25 mcg) TAB PO SCH (09:59)
[2021-07-08] MEDS: ASPIRIN EC 81 MG TAB PO SCH (09:59)
[2021-07-08] MEDS: QUEtiapine 100 MG TAB PO SCH (21:44)
[2021-07-08] MEDS: DONEPEZIL 10 MG TAB PO SCH (21:44)
[2021-07-08] MEDS: MIRTAZAPINE 15 MG TAB PO SCH (21:44)
[2021-07-09] MEDS: VALPROIC ACID 250 MG/5 ML ORAL LIQD PO SCH ×3 (09:29→21:30)
[2021-07-09] MEDS: MEMANTINE 5 MG TAB PO SCH ×2 (09:30→21:31)
[2021-07-09] MEDS: CHOLECALCIFEROL (VIT D3) 1000 UNIT (25 mcg) TAB PO SCH (09:30)
[2021-07-09] MEDS: clonazePAM 0.5 MG TAB PO SCH ×2 (09:30→21:31)
[2021-07-09] MEDS: CLOPIDOGREL 75 MG TAB PO SCH (09:30)
[2021-07-09] MEDS: ASPIRIN EC 81 MG TAB PO SCH (09:31)
[2021-07-09] MEDS: QUEtiapine 200 MG TAB PO SCH (09:31)
--- NOTE | 2021-07-09 10:10 | Progress Note ---
Subjective Date of service: 07/09/21 Principal diagnosis: Dementia with Behavioral Disturbance Subjective Comment: The patient was seen today. He is sitting on side of the bed. He is calm and cooperative. He says he feels a little tired and thinks he's going to take a nap. He denies SI/HI. He also denies hallucinations. 07/08 The patient was seen today. He is sitting in the dayroom eating breakfast. He says he woke up too late. The patient says he feels alright, when asked. He denies SI/HI or hallucinations. He is talkative as usual. 07/07 The patient was seen today. He is talkative. He is calm and cooperative. He denies SI/HI or hallucinations. He is talking about his clothes. He is carrying a jacket in his hand. 07/06/21:The patient was seen eating breakfast. He is calm but continues to be confused " I want monopoly and games to go to the top drawer." He states appetite and sleep as good. He denies any current suicidal/homicidal ideation and denies hallucinations. 07/05/21: The patient was seen eating breakfast. He is calm but continues to be confused. He was seen mixing up salt and sugar in his breakfast. No complains at this time. 07/04/21: The patient was seen eating breakfast. He is calm but continues to be confused. He states he is reading the bible. He states appetite and sleep as good. He denies any current suicidal/homicidal ideation. 07/03/21: The patient was seen this morning. He states sleep was not good " I missed gnosticism yesterday." The patient denies SI/HI/AVHs. REVIEW OF SYSTEMS Constitutional: Negative for weight loss ENT: Negative for stridor Respiratory: Negative for cough or hemoptysis All other systems reviewed and are negative MENTAL STATUS EXAMINATION Unable to assess Assessment (1)Dementia with Behavioral Disturbance Current Visit: Yes Status: Acute Treatment Plan Patient admitted for inpatient psychiatric evaluation, medication adjustment and close monitoring The patient's behavior, mood, sleep and appetite will be closely monitored. Patient enrolled in individual and group therapeutic sessions and encouraged to attend. Patient provided with a safe and structured environment. Patient's physical health needs will be addressed by the Hospitalist. Hospitalist Consulted Labs including CBC, CMP, Lipid profile and Hemoglobin A1C levels ordered for baseline reference Social Assessment will be completed and the Tire Duster will work with patient and family to ensure a suitable and safe disposition Medication adjustment will be made as clinically indicated No changes made today Usual Wellness Amish/Preservation: - Start Trazodone 50 mg po QHS & 50 mg po QHS PRN between 10 PM & 2 AM for insomnia - Start Melatonin 5 mg po QHS to promote circadian rhythm The patient agreed on the treatment plan, understood the risk, benefit, alternative treatment, potential consequence of no treatment, and gave informed consent. Estimated days: 0 Post hospital care: primary care provider, psychiatric provider Case staffed with Dr. Carrion Medications and Allergies Allergies Allergy/AdvReac Type Severity Reaction Status Date / Time morphine Allergy Unknown Verified 06/12/21 22:36 Home Medications Medication Instructions Recorded Confirmed Last Taken Type Aspirin EC [Halfprin EC] 81 mg PO QDAY 06/12/21 06/12/21 Unknown History Cholecalciferol Vit D3 [Vitamin D3 4,000 unit PO QDAY 06/12/21 06/12/21 Unknown History 1,000 UNIT TAB] Clopidogrel [Plavix] 75 mg PO QDAY 06/12/21 06/12/21 Unknown History Memantine [Namenda] 5 mg PO BID 06/12/21 06/12/21 Unknown History Mirtazapine [Remeron] 15 mg PO HS 06/12/21 06/12/21 Unknown History QUEtiapine [SEROquel] 100 mg PO HS 06/12/21 06/12/21 Unknown History Quetiapine Fumarate [SEROquel] 50 mg PO QDAY 06/12/21 06/12/21 Unknown History donepeziL [Aricept] 10 mg PO HS 06/12/21 06/12/21 Unknown History Active Meds: Active Medications Aspirin (Aspirin Ec 81 Mg Tab) 81 mg PO QDAY [facility] Last Admin: 07/09/21 09:31 Dose: 81 mg Cholecalciferol (Cholecalciferol (Vit D3) 1000 Unit (25 Mcg) Tab) 4,000 unit PO QDAY [facility] Last Admin: 07/09/21 09:30 Dose: 4,000 unit Clonazepam (Clonazepam 0.5 Mg Tab) 0.5 mg PO BID [facility] Last Admin: 07/09/21 09:30 Dose: 0.5 mg Clopidogrel Bisulfate (Clopidogrel 75 Mg Tab) 75 mg PO QDAY [facility] Last Admin: 07/09/21 09:30 Dose: 75 mg Donepezil HCl (Donepezil 10 Mg Tab) 10 mg PO HS [facility] Last Admin: 07/08/21 21:44 Dose: 10 mg Loperamide HCl (Loperamide 2 Mg Cap) 2 mg PO Q6H PRN PRN Reason: Diarrhea Last Admin: 07/06/21 08:43 Dose: 2 mg Memantine (Memantine 5 Mg Tab) 5 mg PO BID [facility] Last Admin: 07/09/21 09:30 Dose: 5 mg Mirtazapine (Mirtazapine 15 Mg Tab) 15 mg PO HS [facility] Last Admin: 07/08/21 21:44 Dose: 15 mg Quetiapine Fumarate (Quetiapine 100 Mg Tab) 300 mg PO QHS [facility] Last Admin: 07/08/21 21:44 Dose: 300 mg Quetiapine Fumarate (Quetiapine 200 Mg Tab) 200 mg PO DAILY [facility] Last Admin: 07/09/21 09:31 Dose: 200 mg Valproic Acid (Valproic Acid 250 Mg/5 Ml Oral Liqd) 250 mg PO TID [facility] Last Admin: 07/09/21 09:29 Dose: 250 mg Ziprasidone (Ziprasidone Mesylate 20 Mg Vial) 20 mg IM Q4H PRN PRN Reason: Agitation Last Admin: 06/17/21 11:04 Dose: 20 mg Results - Results Labs/Vitals: Laboratory Last Values WBC 4.6 K/mm3 (4.5-11.0) 06/12/21 23:42 RBC 3.08 M/mm3 (3.65-5.03) L 06/12/21 23:42 Hgb 9.8 gm/dl (11.8-15.2) L 06/12/21 23:42 Hct 30.3 % (35.5-45.6) L 06/12/21 23:42 MCV 98 fl (84-94) H 06/12/21 23:42 MCH 32 pg (28-32) 06/12/21 23:42 MCHC 32 % (32-34) 06/12/21 23:42 RDW 16.4 % (13.2-15.2) H 06/12/21 23:42 Plt Count 269 K/mm3 (140-440) 06/12/21 23:42 Lymph % (Auto) 27.4 % (13.4-35.0) 06/12/21 23:42 [place] % (Auto) 9.4 % (0.0-7.3) H 06/12/21 23:42 Eos % (Auto) 1.4 % (0.0-4.3) 06/12/21 23:42 Baso % (Auto) 0.5 % (0.0-1.8) 06/12/21 23:42 Lymph # (Auto) 1.2 K/mm3 (1.2-5.4) 06/12/21 23:42 [place] # (Auto) 0.4 K/mm3 (0.0-0.8) 06/12/21 23:42 Eos # (Auto) 0.1 K/mm3 (0.0-0.4) 06/12/21 23:42 Baso # (Auto) 0.0 K/mm3 (0.0-0.1) 06/12/21 23:42 Seg Neutrophils % 61.3 % (40.0-70.0) 06/12/21 23:42 Seg Neutrophils # 2.8 K/mm3 (1.8-7.7) 06/12/21 23:42 Sodium 138 mmol/L (137-145) 06/12/21 23:42 Potassium 4.2 mmol/L (3.6-5.0) 06/12/21 23:42 Chloride 103.5 mmol/L (98-107) 06/12/21 23:42 Carbon Dioxide 27 mmol/L (22-30) 06/12/21 23:42 Anion Gap 12 mmol/L 06/12/21 23:42 BUN 22 mg/dL (9-20) H 06/12/21 23:42 Creatinine 0.7 mg/dL (0.8-1.3) L 06/12/21 23:42 Estimated GFR > 60 ml/min 06/12/21 23:42 BUN/Creatinine Ratio 31 % 06/12/21 23:42 Glucose 95 mg/dL (75-100) 06/12/21 23:42 Hemoglobin A1c 5.6 % (4-6) 06/12/21 23:42 Calcium 8.6 mg/dL (8.4-10.2) 06/12/21 23:42 Total Bilirubin 0.20 mg/dL (0.1-1.2) 06/12/21 23:42 AST 24 units/L (5-40) 06/12/21 23:42 ALT 29 units/L (7-56) 06/12/21 23:42 Alkaline Phosphatase 96 units/L (35-129) 06/12/21 23:42 Total Protein 7.5 g/dL (6.3-8.2) 06/12/21 23:42 Albumin 3.4 g/dL (3.9-5) L 06/12/21 23:42 Albumin/Globulin Ratio 0.8 % 06/12/21 23:42 Triglycerides 50 mg/dL (2-149) 06/12/21 23:42 Cholesterol 164 mg/dL (50-199) 06/12/21 23:42 LDL Cholesterol Direct 93 mg/dL (50-130) 06/12/21 23:42 HDL Cholesterol 65 mg/dL (40-59) H 06/12/21 23:42 Cholesterol/HDL Ratio 2.52 % 06/12/21 23:42 TSH 2.150 mlU/mL (0.270-4.200) 06/12/21 23:42 Hepatitis A IgM Ab Non-reactive (NonReactive) 06/12/21 23:42 Hep Bs Antigen Non-reactive (Negative) 06/12/21 23:42 Hep B Core IgM Ab Non-reactive (NonReactive) 06/12/21 23:42 Hepatitis C Antibody Non-reactive (NonReactive) 06/12/21 23:42 Last Vital Signs Temp 98.1 F 07/08/21 19:35 Pulse 101 H 07/08/21 19:35 Resp 17 07/08/21 19:35 BP 127/67 07/08/21 19:35 Pulse Ox 95 07/08/21 19:35
[2021-07-09] MEDS: QUEtiapine 100 MG TAB PO SCH (21:30)
[2021-07-09] MEDS: DONEPEZIL 10 MG TAB PO SCH (21:30)
[2021-07-09] MEDS: MIRTAZAPINE 15 MG TAB PO SCH (21:31)
[2021-07-10] MEDS: clonazePAM 0.5 MG TAB PO SCH ×2 (09:57→21:22)
[2021-07-10] MEDS: QUEtiapine 200 MG TAB PO SCH (09:57)
[2021-07-10] MEDS: CHOLECALCIFEROL (VIT D3) 1000 UNIT (25 mcg) TAB PO SCH (09:57)
[2021-07-10] MEDS: ASPIRIN EC 81 MG TAB PO SCH (09:57)
[2021-07-10] MEDS: MEMANTINE 5 MG TAB PO SCH ×2 (09:57→21:22)
[2021-07-10] MEDS: CLOPIDOGREL 75 MG TAB PO SCH (09:57)
[2021-07-10] MEDS: VALPROIC ACID 250 MG/5 ML ORAL LIQD PO SCH ×3 (09:57→20:39)
--- NOTE | 2021-07-10 11:24 | Progress Note ---
Subjective Date of service: 07/10/21 Principal diagnosis: Dementia with Behavioral Disturbance Subjective Comment: The patient was seen today. He is sitting eating breakfast. He says he slept good last night. The patient says he's "about ready to go home." He says "been here too long." He denies SI/HI or hallucinations of any kind. 07/09 The patient was seen today. He is sitting on side of the bed. He is calm and cooperative. He says he feels a little tired and thinks he's going to take a nap. He denies SI/HI. He also denies hallucinations. 07/08 The patient was seen today. He is sitting in the dayroom eating breakfast. He says he woke up too late. The patient says he feels alright, when asked. He denies SI/HI or hallucinations. He is talkative as usual. 07/07 The patient was seen today. He is talkative. He is calm and cooperative. He denies SI/HI or hallucinations. He is talking about his clothes. He is carrying a jacket in his hand. 07/06/21:The patient was seen eating breakfast. He is calm but continues to be confused " I want monopoly and games to go to the top drawer." He states appetite and sleep as good. He denies any current suicidal/homicidal ideation and denies hallucinations. 07/05/21: The patient was seen eating breakfast. He is calm but continues to be confused. He was seen mixing up salt and sugar in his breakfast. No complains at this time. 07/04/21: The patient was seen eating breakfast. He is calm but continues to be confused. He states he is reading the bible. He states appetite and sleep as good. He denies any current suicidal/homicidal ideation. 07/03/21: The patient was seen this morning. He states sleep was not good " I missed congregational yesterday." The patient denies SI/HI/AVHs. REVIEW OF SYSTEMS Constitutional: Negative for weight loss ENT: Negative for stridor Respiratory: Negative for cough or hemoptysis All other systems reviewed and are negative MENTAL STATUS EXAMINATION Unable to assess Assessment (1)Dementia with Behavioral Disturbance Current Visit: Yes Status: Acute Treatment Plan Patient admitted for inpatient psychiatric evaluation, medication adjustment and close monitoring The patient's behavior, mood, sleep and appetite will be closely monitored. Patient enrolled in individual and group therapeutic sessions and encouraged to attend. Patient provided with a safe and structured environment. Patient's physical health needs will be addressed by the Hospitalist. Hospitalist Consulted Labs including CBC, CMP, Lipid profile and Hemoglobin A1C levels ordered for baseline reference Social Assessment will be completed and the Microsoft Windows Engineer will work with patient and family to ensure a suitable and safe disposition Medication adjustment will be made as clinically indicated No changes made today Usual Wellness Oriental Orthodox/Preservation: - Start Trazodone 50 mg po QHS & 50 mg po QHS PRN between 10 PM & 2 AM for insomnia - Start Melatonin 5 mg po QHS to promote circadian rhythm The patient agreed on the treatment plan, understood the risk, benefit, alternative treatment, potential consequence of no treatment, and gave informed consent. Estimated days: 0 Post hospital care: primary care provider, psychiatric provider Case staffed with Dr. Carrion Medications and Allergies Allergies Allergy/AdvReac Type Severity Reaction Status Date / Time morphine Allergy Unknown Verified 06/12/21 22:36 Home Medications Medication Instructions Recorded Confirmed Last Taken Type Aspirin EC [Halfprin EC] 81 mg PO QDAY 06/12/21 06/12/21 Unknown History Cholecalciferol Vit D3 [Vitamin D3 4,000 unit PO QDAY 06/12/21 06/12/21 Unknown History 1,000 UNIT TAB] Clopidogrel [Plavix] 75 mg PO QDAY 06/12/21 06/12/21 Unknown History Memantine [Namenda] 5 mg PO BID 06/12/21 06/12/21 Unknown History Mirtazapine [Remeron] 15 mg PO HS 06/12/21 06/12/21 Unknown History QUEtiapine [SEROquel] 100 mg PO HS 06/12/21 06/12/21 Unknown History Quetiapine Fumarate [SEROquel] 50 mg PO QDAY 06/12/21 06/12/21 Unknown History donepeziL [Aricept] 10 mg PO HS 06/12/21 06/12/21 Unknown History Active Meds: Active Medications Aspirin (Aspirin Ec 81 Mg Tab) 81 mg PO QDAY [facility] Last Admin: 07/10/21 09:57 Dose: 81 mg Cholecalciferol (Cholecalciferol (Vit D3) 1000 Unit (25 Mcg) Tab) 4,000 unit PO QDAY [facility] Last Admin: 07/10/21 09:57 Dose: 4,000 unit Clonazepam (Clonazepam 0.5 Mg Tab) 0.5 mg PO BID [facility] Last Admin: 07/10/21 09:57 Dose: 0.5 mg Clopidogrel Bisulfate (Clopidogrel 75 Mg Tab) 75 mg PO QDAY [facility] Last Admin: 07/10/21 09:57 Dose: 75 mg Donepezil HCl (Donepezil 10 Mg Tab) 10 mg PO HS [facility] Last Admin: 07/09/21 21:30 Dose: 10 mg Loperamide HCl (Loperamide 2 Mg Cap) 2 mg PO Q6H PRN PRN Reason: Diarrhea Last Admin: 07/06/21 08:43 Dose: 2 mg Memantine (Memantine 5 Mg Tab) 5 mg PO BID [facility] Last Admin: 07/10/21 09:57 Dose: 5 mg Mirtazapine (Mirtazapine 15 Mg Tab) 15 mg PO [facility] Last Admin: 07/09/21 21:31 Dose: 15 mg Quetiapine Fumarate (Quetiapine 100 Mg Tab) 300 mg PO QHS [facility] Last Admin: 07/09/21 21:30 Dose: 300 mg Quetiapine Fumarate (Quetiapine 200 Mg Tab) 200 mg PO DAILY [facility] Last Admin: 07/10/21 09:57 Dose: 200 mg Valproic Acid (Valproic Acid 250 Mg/5 Ml Oral Liqd) 250 mg PO TID [facility] Last Admin: 07/10/21 09:57 Dose: 250 mg Ziprasidone (Ziprasidone Mesylate 20 Mg Vial) 20 mg IM Q4H PRN PRN Reason: Agitation Last Admin: 06/17/21 11:04 Dose: 20 mg Results - Results Labs/Vitals: Laboratory Last Values WBC 4.6 K/mm3 (4.5-11.0) 06/12/21 23:42 RBC 3.08 M/mm3 (3.65-5.03) L 06/12/21 23:42 Hgb 9.8 gm/dl (11.8-15.2) L 06/12/21 23:42 Hct 30.3 % (35.5-45.6) L 06/12/21 23:42 MCV 98 fl (84-94) H 06/12/21 23:42 MCH 32 pg (28-32) 06/12/21 23:42 MCHC 32 % (32-34) 06/12/21 23:42 RDW 16.4 % (13.2-15.2) H 06/12/21 23:42 Plt Count 269 K/mm3 (140-440) 06/12/21 23:42 Lymph % (Auto) 27.4 % (13.4-35.0) 06/12/21 23:42 [place] % (Auto) 9.4 % (0.0-7.3) H 06/12/21 23:42 Eos % (Auto) 1.4 % (0.0-4.3) 06/12/21 23:42 Baso % (Auto) 0.5 % (0.0-1.8) 06/12/21 23:42 Lymph # (Auto) 1.2 K/mm3 (1.2-5.4) 06/12/21 23:42 [place] # (Auto) 0.4 K/mm3 (0.0-0.8) 06/12/21 23:42 Eos # (Auto) 0.1 K/mm3 (0.0-0.4) 06/12/21 23:42 Baso # (Auto) 0.0 K/mm3 (0.0-0.1) 06/12/21 23:42 Seg Neutrophils % 61.3 % (40.0-70.0) 06/12/21 23:42 Seg Neutrophils # 2.8 K/mm3 (1.8-7.7) 06/12/21 23:42 Sodium 138 mmol/L (137-145) 06/12/21 23:42 Potassium 4.2 mmol/L (3.6-5.0) 06/12/21 23:42 Chloride 103.5 mmol/L (98-107) 06/12/21 23:42 Carbon Dioxide 27 mmol/L (22-30) 06/12/21 23:42 Anion Gap 12 mmol/L 06/12/21 23:42 BUN 22 mg/dL (9-20) H 06/12/21 23:42 Creatinine 0.7 mg/dL (0.8-1.3) L 06/12/21 23:42 Estimated GFR > 60 ml/min 06/12/21 23:42 BUN/Creatinine Ratio 31 % 06/12/21 23:42 Glucose 95 mg/dL (75-100) 06/12/21 23:42 Hemoglobin A1c 5.6 % (4-6) 06/12/21 23:42 Calcium 8.6 mg/dL (8.4-10.2) 06/12/21 23:42 Total Bilirubin 0.20 mg/dL (0.1-1.2) 06/12/21 23:42 AST 24 units/L (5-40) 06/12/21 23:42 ALT 29 units/L (7-56) 06/12/21 23:42 Alkaline Phosphatase 96 units/L (35-129) 06/12/21 23:42 Total Protein 7.5 g/dL (6.3-8.2) 06/12/21 23:42 Albumin 3.4 g/dL (3.9-5) L 06/12/21 23:42 Albumin/Globulin Ratio 0.8 % 06/12/21 23:42 Triglycerides 50 mg/dL (2-149) 06/12/21 23:42 Cholesterol 164 mg/dL (50-199) 06/12/21 23:42 LDL Cholesterol Direct 93 mg/dL (50-130) 06/12/21 23:42 HDL Cholesterol 65 mg/dL (40-59) H 06/12/21 23:42 Cholesterol/HDL Ratio 2.52 % 06/12/21 23:42 TSH 2.150 mlU/mL (0.270-4.200) 06/12/21 23:42 Hepatitis A IgM Ab Non-reactive (NonReactive) 06/12/21 23: Hep Bs Antigen Non-reactive (Negative) 06/12/21 23:42 Hep B Core IgM Ab Non-reactive (NonReactive) 06/12/21 23:42 Hepatitis C Antibody Non-reactive (NonReactive) 06/12/21 23:42 Last Vital Signs Temp 97.3 F L 07/10/21 09:54 Pulse 108 H 07/10/21 09:54 Resp 20 07/10/21 09:54 BP 106/59 07/10/21 09:54 Pulse Ox 96 07/10/21 09:54
--- NOTE | 2021-07-10 13:23 | Progress Note ---
Assessment and Plan - Patient Problems (1) Vascular dementia with behavioral disturbance Current Visit: Yes Status: Acute Plan to address problem: Verbal prompting, verbal redirection, benzodiazepine therapy as clinically indicated. (2) Cerebral atherosclerosis Current Visit: Yes Status: Acute Plan to address problem: Risk factor reduction continue antiplatelet therapy. (3) Coronary artery disease Current Visit: Yes Status: Acute Plan to address problem: Respect reduction, continue antiplatelet therapy, continue statin therapy. (4) Hypertension Current Visit: Yes Status: Acute Qualifiers: Hypertension type: primary hypertension Qualified Code(s): I10 - Essential (primary) hypertension Plan to address problem: Monitor blood pressure every shift, continue medical management (5) Hyperlipidemia Current Visit: Yes Status: Acute Plan to address problem: Low-cholesterol diet, statin therapy, supportive care. (6) Advance care planning Current Visit: Yes Status: Acute Plan to address problem: Disease education conducted, care plan discussed, diagnoses discussed, prognosis discussed, patient is full code, +30 minutes. History Interval history: 76 YO Male with Vascular Dementia with Behavioral Disturbance, Cerebral Atherosclerosis, HTN, CAD S/P CABG on antiplatelet therapy, HLD admitted to [facility] psych unit for psychiatric stabilization. Consult placed by Dr. Young for medical management. Patient seen and evaluated in the recreation room. Patient remains confused with tangential thinking. No reported nursing events. Patient remains minimally cooperative but is at baseline level of cognition and and function. Hospitalist Physical - Constitutional Vitals: Temp Pulse Resp BP Pulse Ox 97.3 F L 108 H 20 106/59 96 07/10/21 09:54 07/10/21 09:54 07/10/21 09:54 07/10/21 09:54 07/10/21 09:54 General appearance: Present: no acute distress Results - Labs CBC & Chem 7: 06/12/21 23:42 06/12/21 23:42 Labs: Laboratory Last Values WBC 4.6 K/mm3 (4.5-11.0) 06/12/21 23:42 RBC 3.08 M/mm3 (3.65-5.03) L 06/12/21 23:42 Hgb 9.8 gm/dl (11.8-15.2) L 06/12/21 23:42 Hct 30.3 % (35.5-45.6) L 06/12/21 23:42 MCV 98 fl (84-94) H 06/12/21 23:42 MCH 32 pg (28-32) 06/12/21 23:42 MCHC 32 % (32-34) 06/12/21 23:42 RDW 16.4 % (13.2-15.2) H 06/12/21 23:42 Plt Count 269 K/mm3 (140-440) 06/12/21 23:42 Lymph % (Auto) 27.4 % (13.4-35.0) 06/12/21 23:42 [place] % (Auto) 9.4 % (0.0-7.3) H 06/12/21 23:42 Eos % (Auto) 1.4 % (0.0-4.3) 06/12/21: Baso % (Auto) 0.5 % (0.0-1.8) 06/12/21 23:42 Lymph # (Auto) 1.2 K/mm3 (1.2-5.4) 06/12/21 23:42 [place] # (Auto) 0.4 K/mm3 (0.0-0.8) 06/12/21 23:42 Eos # (Auto) 0.1 K/mm3 (0.0-0.4) 06/12/21 23: Baso # (Auto) 0.0 K/mm3 (0.0-0.1) 06/12/21 23:42 Seg Neutrophils % 61.3 % (40.0-70.0) 06/12/21 23: Seg Neutrophils # 2.8 K/mm3 (1.8-7.7) 06/12/21 23:42 Sodium 138 mmol/L (137-145) 06/12/21 23:42 Potassium 4.2 mmol/L (3.6-5.0) 06/12/21 23: Chloride 103.5 mmol/L (98-107) 06/12/21 23: Carbon Dioxide 27 mmol/L (22-30) 06/12/21 23:42 Anion Gap 12 mmol/L 06/12/21 23:42 BUN 22 mg/dL (9-20) H 06/12/21 23:42 Creatinine 0.7 mg/dL (0.8-1.3) L 06/12/21 23:42 Estimated GFR > 60 ml/min 02/14/22 23:42 BUN/Creatinine Ratio 31 % 06/12/21 23:42 Glucose 95 mg/dL (75-100) 06/12/21 23:42 Hemoglobin A1c 5.6 % (4-6) 06/12/21 23:42 Calcium 8.6 mg/dL (8.4-10.2) 06/12/21 23:42 Total Bilirubin 0.20 mg/dL (0.1-1.2) 06/12/21 23:42 AST 24 units/L (5-40) 06/12/21 23:42 ALT 29 units/L (7-56) 06/12/21 23:42 Alkaline Phosphatase 96 units/L (35-129) 06/12/21 23:42 Total Protein 7.5 g/dL (6.3-8.2) 06/12/21 23:42 Albumin 3.4 g/dL (3.9-5) L 06/12/21 23:42 Albumin/Globulin Ratio 0.8 % 06/12/21 23:42 Triglycerides 50 mg/dL (2-149) 06/12/21 23:42 Cholesterol 164 mg/dL (50-199) 06/12/21 23:42 LDL Cholesterol Direct 93 mg/dL (50-130) 06/12/21 23:42 HDL Cholesterol 65 mg/dL (40-59) H 06/12/21 23:42 Cholesterol/HDL Ratio 2.52 % 06/12/21 23:42 TSH 2.150 mlU/mL (0.270-4.200) 06/12/21 23:42 Hepatitis A IgM Ab Non-reactive (NonReactive) 06/12/21 23:42 Hep Bs Antigen Non-reactive (Negative) 06/12/21 23:42 Hep B Core IgM Ab Non-reactive (NonReactive) 06/12/21 23:42 Hepatitis C Antibody Non-reactive (NonReactive) 06/12/21 23:42 [place]/IV: Voiding Method Toilet Active Medications - Current Medications Current Medications: Generic Name Dose Route Start Last Admin Trade Name Freq PRN Reason Stop Dose Admin Aspirin 81 mg 06/13/21 10:00 07/10/21 09:57 Aspirin Ec 81 Mg Tab PO 81 mg QDAY [facility] Administration Cholecalciferol 4,000 unit 06/13/21 10:00 07/10/21 09:57 Cholecalciferol (Vit D3) 1000 Unit (25 Mcg) Tab PO 4,000 unit QDAY [facility] Administration Clonazepam 0.5 mg 06/17/21 10:00 07/10/21 09:57 Clonazepam 0.5 Mg Tab PO 0.5 mg BID [facility] Administration Clopidogrel Bisulfate 75 mg 06/13/21 10:00 07/10/21 09:57 Clopidogrel 75 Mg Tab PO 75 mg QDAY [facility] Administration Donepezil HCl 10 mg 06/13/21 22:00 07/09/21 21:30 Donepezil 10 Mg Tab PO 10 mg HS [facility]RO Administration Loperamide HCl 2 mg 06/16/21 11:00 07/06/21 08:43 Loperamide 2 Mg Cap PO 2 mg Q6H PRN Administration Diarrhea Memantine 5 mg 06/13/21 10:00 07/10/21 09:57 Memantine 5 Mg Tab PO 5 mg BID [facility] Administration Mirtazapine 15 mg 06/13/21 22:00 07/09/21 21:31 Mirtazapine 15 Mg Tab PO 15 mg HS [facility] Administration Quetiapine Fumarate 300 mg 06/17/21 22:00 07/09/21 21:30 Quetiapine 100 Mg Tab PO 300 mg QHS [facility] Administration Quetiapine Fumarate 200 mg 06/24/21 11:00 07/10/21 09:57 Quetiapine 200 Mg Tab PO 200 mg DAILY [facility] Administration Valproic Acid 250 mg 06/23/21 14:00 07/10/21 09:57 Valproic Acid 250 Mg/5 Ml Oral Liqd PO 250 mg TID [facility] Administration Ziprasidone 20 mg 06/17/21 08:30 06/17/21 11:04 Ziprasidone Mesylate 20 Mg Vial IM 20 mg Q4H PRN Administration Agitation Nutrition/Malnutrition Assess - Dietary Evaluation Nutrition/Malnutrition Findings: Nutrition Notes Start: 06/19/21 11:00 Freq: Status: Active Protocol: Document 06/19/21 11:00 JANINE (Rec: 06/19/21 11:03 JANINE [id number]) Nutrition Notes Need for Assessment generated from: LOS Initial or Follow up Brief Note Current Diet Cardiac Height 5 ft 5 in Weight 77.5 kg [place] Body Weight (kg) 61.81 BMI 28.4 Weight Status Overweight Subjective/Other Information Pt screened for LOS. Pt has consumed 88% of meals since admission. Percent of energy/protein needs met: 100% energy 96% pro Burn Absent Trauma Absent Current % PO Good (75-100%) Minimum of two criteria No Is patient on ventilator? No Is Patient Ambulatory and/or Out of Bed Yes REE-([facility]-ambulatory/OOB) [ [id number] [id number]] Calculation Used for Recommendations [facility] Additional Notes Pro needs 1-1.2g/k-93g/ day Fluid needs 1ml/kcal Nutrition Intervention Revisit per MD consult or patient Sign Off request:
[2021-07-10] MEDS: MIRTAZAPINE 15 MG TAB PO SCH (21:22)
[2021-07-10] MEDS: DONEPEZIL 10 MG TAB PO SCH (21:22)
[2021-07-10] MEDS: QUEtiapine 100 MG TAB PO SCH (21:22)
[2021-07-11] MEDS: VALPROIC ACID 250 MG/5 ML ORAL LIQD PO SCH ×3 (07:57→21:06)
[2021-07-11] MEDS: CHOLECALCIFEROL (VIT D3) 1000 UNIT (25 mcg) TAB PO SCH (09:04)
[2021-07-11] MEDS: QUEtiapine 200 MG TAB PO SCH (09:05)
[2021-07-11] MEDS: ASPIRIN EC 81 MG TAB PO SCH (09:05)
[2021-07-11] MEDS: CLOPIDOGREL 75 MG TAB PO SCH (09:05)
[2021-07-11] MEDS: clonazePAM 0.5 MG TAB PO SCH ×2 (09:05→21:08)
[2021-07-11] MEDS: MEMANTINE 5 MG TAB PO SCH ×2 (09:05→21:08)
--- NOTE | 2021-07-11 09:36 | Progress Note ---
Subjective Date of service: 07/11/21 Principal diagnosis: Dementia with Behavioral Disturbance Subjective Comment: The patient was seen today. He says "when am I getting out of here." He denies SI/HI or hallucinations of any kind. He is ranting about wanting to get water. 07/10 The patient was seen today. He is sitting eating breakfast. He says he slept good last night. The patient says he's "about ready to go home." He says "been here too long." He denies SI/HI or hallucinations of any kind. 07/09 The patient was seen today. He is sitting on side of the bed. He is calm and cooperative. He says he feels a little tired and thinks he's going to take a nap. He denies SI/HI. He also denies hallucinations. 07/08 The patient was seen today. He is sitting in the dayroom eating breakfast. He says he woke up too late. The patient says he feels alright, when asked. He denies SI/HI or hallucinations. He is talkative as usual. 07/07 The patient was seen today. He is talkative. He is calm and cooperative. He denies SI/HI or hallucinations. He is talking about his clothes. He is carrying a jacket in his hand. 07/06/21:The patient was seen eating breakfast. He is calm but continues to be confused " I want monopoly and games to go to the top drawer." He states appetite and sleep as good. He denies any current suicidal/homicidal ideation and denies hallucinations. 07/05/21: The patient was seen eating breakfast. He is calm but continues to be confused. He was seen mixing up salt and sugar in his breakfast. No complains at this time. 07/04/21: The patient was seen eating breakfast. He is calm but continues to be confused. He states he is reading the bible. He states appetite and sleep as good. He denies any current suicidal/homicidal ideation. 07/03/21: The patient was seen this morning. He states sleep was not good " I missed taoist yesterday." The patient denies SI/HI/AVHs. REVIEW OF SYSTEMS Constitutional: Negative for weight loss ENT: Negative for stridor Respiratory: Negative for cough or hemoptysis All other systems reviewed and are negative MENTAL STATUS EXAMINATION Unable to assess Assessment (1)Dementia with Behavioral Disturbance Current Visit: Yes Status: Acute Treatment Plan Patient admitted for inpatient psychiatric evaluation, medication adjustment and close monitoring The patient's behavior, mood, sleep and appetite will be closely monitored. Patient enrolled in individual and group therapeutic sessions and encouraged to attend. Patient provided with a safe and structured environment. Patient's physical health needs will be addressed by the Hospitalist. Hospitalist Consulted Labs including CBC, CMP, Lipid profile and Hemoglobin A1C levels ordered for baseline reference Social Assessment will be completed and the Head [employer] And L[employer] Operator will work with patient and family to ensure a suitable and safe disposition Medication adjustment will be made as clinically indicated No changes made today Usual Wellness Baptism/Preservation: - Start Trazodone 50 mg po QHS & 50 mg po QHS PRN between 10 PM & 2 AM for insomnia - Start Melatonin 5 mg po QHS to promote circadian rhythm The patient agreed on the treatment plan, understood the risk, benefit, alternative treatment, potential consequence of no treatment, and gave informed consent. Estimated days: 0 Post hospital care: primary care provider, psychiatric provider Case staffed with Dr. Carrion Medications and Allergies Allergies Allergy/AdvReac Type Severity Reaction Status Date / Time morphine Allergy Unknown Verified 06/12/21 22:36 Home Medications Medication Instructions Recorded Confirmed Last Taken Type Aspirin EC [Halfprin EC] 81 mg PO QDAY 06/12/21 06/12/21 Unknown History Cholecalciferol Vit D3 [Vitamin D3 4,000 unit PO QDAY 06/12/21 06/12/21 Unknown History 1,000 UNIT TAB] Clopidogrel [Plavix] 75 mg PO QDAY 06/12/21 06/12/21 Unknown History Memantine [Namenda] 5 mg PO BID 06/12/21 06/12/21 Unknown History Mirtazapine [Remeron] 15 mg PO HS 06/12/21 06/12/21 Unknown History QUEtiapine [SEROquel] 100 mg PO HS 06/12/21 06/12/21 Unknown History Quetiapine Fumarate [SEROquel] 50 mg PO QDAY 06/12/21 06/12/21 Unknown History donepeziL [Aricept] 10 mg PO HS 06/12/21 06/12/21 Unknown History Active Meds: Active Medications Aspirin (Aspirin Ec 81 Mg Tab) 81 mg PO QDAY [facility]RO Last Admin: 07/11/21 09:05 Dose: 81 mg Cholecalciferol (Cholecalciferol (Vit D3) 1000 Unit (25 Mcg) Tab) 4,000 unit PO QDAY [facility] Last Admin: 07/11/21 09:04 Dose: 4,000 unit Clonazepam (Clonazepam 0.5 Mg Tab) 0.5 mg PO BID [facility] Last Admin: 07/11/21 09:05 Dose: 0.5 mg Clopidogrel Bisulfate (Clopidogrel 75 Mg Tab) 75 mg PO QDAY [facility] Last Admin: 07/11/21 09:05 Dose: 75 mg Donepezil HCl (Donepezil 10 Mg Tab) 10 mg PO HS [facility] Last Admin: 07/10/21 21:22 Dose: 10 mg Loperamide HCl (Loperamide 2 Mg Cap) 2 mg PO Q6H PRN PRN Reason: Diarrhea Last Admin: 07/06/21 08:43 Dose: 2 mg Memantine (Memantine 5 Mg Tab) 5 mg PO BID [facility] Last Admin: 07/11/21 09:05 Dose: 5 mg Mirtazapine (Mirtazapine 15 Mg Tab) 15 mg PO HS [facility] Last Admin: 07/10/21 21:22 Dose: 15 mg Quetiapine Fumarate (Quetiapine 100 Mg Tab) 300 mg PO QHS [facility] Last Admin: 07/10/21 21:22 Dose: 300 mg Quetiapine Fumarate (Quetiapine 200 Mg Tab) 200 mg PO DAILY [facility] Last Admin: 07/11/21 09:05 Dose: 200 mg Valproic Acid (Valproic Acid 250 Mg/5 Ml Oral Liqd) 250 mg PO TID [facility] Last Admin: 07/11/21 07:57 Dose: 250 mg Ziprasidone (Ziprasidone Mesylate 20 Mg Vial) 20 mg IM Q4H PRN PRN Reason: Agitation Last Admin: 06/17/21 11:04 Dose: 20 mg Results - Results Labs/Vitals: Laboratory Last Values WBC 4.6 K/mm3 (4.5-11.0) 06/12/21 23:42 RBC 3.08 M/mm3 (3.65-5.03) L 06/12/21 23:42 Hgb 9.8 gm/dl (11.8-15.2) L 06/12/21 23:42 Hct 30.3 % (35.5-45.6) L 06/12/21 23:42 MCV 98 fl (84-94) H 06/12/21 23:42 MCH 32 pg (28-32) 06/12/21 23:42 MCHC 32 % (32-34) 06/12/21 23:42 RDW 16.4 % (13.2-15.2) H 06/12/21 23:42 Plt Count 269 K/mm3 (140-440) 06/12/21 23:42 Lymph % (Auto) 27.4 % (13.4-35.0) 06/12/21 23:42 [place] % (Auto) 9.4 % (0.0-7.3) H 06/12/21 23:42 Eos % (Auto) 1.4 % (0.0-4.3) 06/12/21 23:42 Baso % (Auto) 0.5 % (0.0-1.8) 06/12/21 23:42 Lymph # (Auto) 1.2 K/mm3 (1.2-5.4) 06/12/21 23:42 [place] # (Auto) 0.4 K/mm3 (0.0-0.8) 06/12/21 23:42 Eos # (Auto) 0.1 K/mm3 (0.0-0.4) 06/12/21 23:42 Baso # (Auto) 0.0 K/mm3 (0.0-0.1) 06/12/21 23:42 Seg Neutrophils % 61.3 % (40.0-70.0) 06/12/21 23:42 Seg Neutrophils # 2.8 K/mm3 (1.8-7.7) 06/12/21 23:42 Sodium 138 mmol/L (137-145) 06/12/21 23:42 Potassium 4.2 mmol/L (3.6-5.0) 06/12/21 23:42 Chloride 103.5 mmol/L (98-107) 06/12/21 23:42 Carbon Dioxide 27 mmol/L (22-30) 06/12/21 23:42 Anion Gap 12 mmol/L 06/12/21 23:42 BUN 22 mg/dL (9-20) H 06/12/21 23:42 Creatinine 0.7 mg/dL (0.8-1.3) L 06/12/21 23:42 Estimated GFR > 60 ml/min 06/12/21 23:42 BUN/Creatinine Ratio 31 % 06/12/21 23:42 Glucose 95 mg/dL (75-100) 06/12/21 23:42 Hemoglobin A1c 5.6 % (4-6) 06/12/21 23:42 Calcium 8.6 mg/dL (8.4-10.2) 06/12/21 23:42 Total Bilirubin 0.20 mg/dL (0.1-1.2) 06/12/21 23:42 AST 24 units/L (5-40) 06/12/21 23:42 ALT 29 units/L (7-56) 06/12/21 23:42 Alkaline Phosphatase 96 units/L (35-129) 06/12/21 23:42 Total Protein 7.5 g/dL (6.3-8.2) 06/12/21 23:42 Albumin 3.4 g/dL (3.9-5) L 06/12/21 23:42 Albumin/Globulin Ratio 0.8 % 06/12/21 23:42 Triglycerides 50 mg/dL (2-149) 06/12/21 23:42 Cholesterol 164 mg/dL (50-199) 06/12/21 23:42 LDL Cholesterol Direct 93 mg/dL (50-130) 06/12/21 23:42 HDL Cholesterol 65 mg/dL (40-59) H 06/12/21 23:42 Cholesterol/HDL Ratio 2.52 % 06/12/21 23:42 TSH 2.150 mlU/mL (0.270-4.200) 06/12/21 23:42 Hepatitis A IgM Ab Non-reactive (NonReactive) 06/12/21 23:42 Hep Bs Antigen Non-reactive (Negative) 06/12/21 23:42 Hep B Core IgM Ab Non-reactive (NonReactive) 06/12/21 23:42 Hepatitis C Antibody Non-reactive (NonReactive) 06/12/21 23:42 Last Vital Signs Temp 97.6 F 07/10/21 20:31 Pulse 101 H 07/10/21 20:31 Resp 18 07/10/21 20:31 BP 111/83 07/10/21 20:31 Pulse Ox 94 07/10/21 20:31
[2021-07-11] MEDS: QUEtiapine 100 MG TAB PO SCH (21:06)
[2021-07-11] MEDS: DONEPEZIL 10 MG TAB PO SCH (21:07)
[2021-07-11] MEDS: MIRTAZAPINE 15 MG TAB PO SCH (21:08)
[2021-07-11 21:35] VITALS: BP 104/63
--- NOTE | 2021-07-12 09:26 | Discharge Summary ---
Providers - Providers Date of Admission: 06/12/21 22:32 Date of discharge: 07/12/21 Attending physician: YUNIOR SALINAS MD 06/12/21 21:04 Consult to Physician [CONS] Routine Comment: Consulting Provider: MOSES GOMES Physician Instructions: Reason For Exam: New admission Primary care physician: JAVA ARCHITECT Hospitalization Reason for admission: psyhcosis, disorganization Condition: Stable Hospital course: The patient was provided inpatient psychiatric treatment with safe and supportive environment, group/individual therapy, psychiatric medication, medication adjustment, adverse effect monitor, medical evaluation, medical treatment, social service assessment, social support meeting, placement ass essment and psycho-education. The patients mood, cognition, behavior, motivation, compliance to treatment and appreciation on family/social support are improved and stabilized. At the time of discharge, the patient had no suicidal ideas, no homicidal ideas, no aggressive thoughts, no endangering behavior and no debilitating adverse effects. The patient agreed on the treatment plan, understood the risk, benefit, alternative treatment, potential consequence of no treatment, and gave informed consent. 07/12 The patient was seen today. He is sitting down eating. He has improved significantly and would no longer benefit form impatient treatment. He denies SI/HI. He also denies hallucinations. He is rambling, but directible. 07/11 The patient was seen today. He says "when am I getting out of here." He denies SI/HI or hallucinations of any kind. He is ranting about wanting to get water. 07/10 The patient was seen today. He is sitting eating breakfast. He says he slept good last night. The patient says he's "about ready to go home." He says "been here too long." He denies SI/HI or hallucinations of any kind. 07/09 The patient was seen today. He is sitting on side of the bed. He is calm and cooperative. He says he feels a little tired and thinks he's going to take a nap. He denies SI/HI. He also denies hallucinations. 07/08 The patient was seen today. He is sitting in the dayroom eating breakfast. He says he woke up too late. The patient says he feels alright, when asked. He denies SI/HI or hallucinations. He is talkative as usual. 07/07 The patient was seen today. He is talkative. He is calm and cooperative. He denies SI/HI or hallucinations. He is talking about his clothes. He is carrying a jacket in his hand. 07/06/21:The patient was seen eating breakfast. He is calm but continues to be confused " I want monopoly and games to go to the top drawer." He states appetite and sleep as good. He denies any current suicidal/homicidal ideation and denies hallucinations. 07/05/21: The patient was seen eating breakfast. He is calm but continues to be confused. He was seen mixing up salt and sugar in his breakfast. No complains at this time. 07/04/21: The patient was seen eating breakfast. He is calm but continues to be confused. He states he is reading the bible. He states appetite and sleep as good. He denies any current suicidal/homicidal ideation. 07/03/21: The patient was seen this morning. He states sleep was not good " I missed anabaptist yesterday." The patient denies SI/HI/AVHs. 06/16/21: The patient was seen this morning pacing the hallway. The patient is confused, defecated allover the [address]. The patient to be placed on 1:1. 06/17/21: The patient was seen pacing. The patient is confused, banging on the windows with disorganized thoughts. 06/18/21: The patient was seen eating breakfast. He continues to be confused but calmer today. He is still talking to himself " I got to go get the phone and sign my name." 06/19/21: The patient was seen this morning. He continues to be confused and pacing the [address]. 06/20/21: The patient was seen this morning. He continues to be confused and pacing the [address]. 06/21/21: The patient was seen this morning. He is calmer but continues to pace. Per nurse, " Last evening the patient slept until around 9 pm. He woke and took his medications and returned to sleep. He woke around 4 am and came out of his room yelling for breakfast. He was directed back to bed where he lay awake. Staff heard a noise in his room and he had a former patient's stuffed cat in his room along with her jewelry and clothing. Items were removed. Patient stayed awake for awhile then slept. He slept a total of 9 hours." 06/22/21: The patient was seen this morning. He continues to be confused and pacing the [address]. 06/13 The patient was seen today. He was admitted to [facility] for increase in agitation and combativeness. During my evaluation the patient is confused. He has poor insight. He is pacing and rambling. He is having flight of ideas. He is difficult to redirect. He is talking about the nurse who just left the room. He then says "I want to you, can you write your name on this paper." He says he lives with three other people. The patient then starts talking about people who have been down on the corner earlier. Disposition: 01 HOME / SELF CARE / HOMELESS Time spent for discharge: 40 Allergies/Adverse Reactions: Allergies morphine Allergy (Verified 06/12/21 22:36) Unknown Vital Signs: Last Vital Signs Temp 98.7 F 07/11/21 21:34 Pulse 95 H 07/11/21 21:34 Resp 18 07/11/21 21:34 BP 104/63 07/11/21 21:34 Pulse Ox 94 07/11/21 21:34 Last Lab: Laboratory Last Values WBC 4.6 K/mm3 (4.5-11.0) 06/12/21 23:42 RBC 3.08 M/mm3 (3.65-5.03) L 06/12/21 23:42 Hgb 9.8 gm/dl (11.8-15.2) L 06/12/21 23:42 Hct 30.3 % (35.5-45.6) L 06/12/21 23:42 MCV 98 fl (84-94) H 06/12/21 23:42 MCH 32 pg (28-32) 06/12/21 23:42 MCHC 32 % (32-34) 06/12/21 23:42 RDW 16.4 % (13.2-15.2) H 06/12/21 23:42 Plt Count 269 K/mm3 (140-440) 06/12/21 23:42 Lymph % (Auto) 27.4 % (13.4-35.0) 06/12/21 23:42 [place] % (Auto) 9.4 % (0.0-7.3) H 06/12/21 23:42 Eos % (Auto) 1.4 % (0.0-4.3) 06/12/21 23:42 Baso % (Auto) 0.5 % (0.0-1.8) 06/12/21 23:42 Lymph # (Auto) 1.2 K/mm3 (1.2-5.4) 06/12/21 23:42 [place] # (Auto) 0.4 K/mm3 (0.0-0.8) 06/12/21 23:42 Eos # (Auto) 0.1 K/mm3 (0.0-0.4) 06/12/21 23:42 Baso # (Auto) 0.0 K/mm3 (0.0-0.1) 06/12/21 23:42 Seg Neutrophils % 61.3 % (40.0-70.0) 06/12/21 23:42 Seg Neutrophils # 2.8 K/mm3 (1.8-7.7) 06/12/21 23:42 Sodium 138 mmol/L (137-145) 06/12/21 23:42 Potassium 4.2 mmol/L (3.6-5.0) 06/12/21 23:42 Chloride 103.5 mmol/L (98-107) 06/12/21 23:42 Carbon Dioxide 27 mmol/L (22-30) 06/12/21 23:42 Anion Gap 12 mmol/L 06/12/21 23:42 BUN 22 mg/dL (9-20) H 06/12/21 23:42 Creatinine 0.7 mg/dL (0.8-1.3) L 06/12/21 23:42 Estimated GFR > 60 ml/min 06/12/21 23:42 BUN/Creatinine Ratio 31 % 06/12/21 23:42 Glucose 95 mg/dL (75-100) 06/12/21 23:42 Hemoglobin A1c 5.6 % (4-6) 06/12/21 23:42 Calcium 8.6 mg/dL (8.4-10.2) 06/12/21 23:42 Total Bilirubin 0.20 mg/dL (0.1-1.2) 06/12/21 23:42 AST 24 units/L (5-40) 06/12/21 23:42 ALT 29 units/L (7-56) 06/12/21 23:42 Alkaline Phosphatase 96 units/L (35-129) 06/12/21 23:42 Total Protein 7.5 g/dL (6.3-8.2) 06/12/21 23:42 Albumin 3.4 g/dL (3.9-5) L 06/12/21 23:42 Albumin/Globulin Ratio 0.8 % 06/12/21 23:42 Triglycerides 50 mg/dL (2-149) 06/12/21 23:42 Cholesterol 164 mg/dL (50-199) 06/12/21 23:42 LDL Cholesterol Direct 93 mg/dL (50-130) 06/12/21 23:42 HDL Cholesterol 65 mg/dL (40-59) H 06/12/21 23:42 Cholesterol/HDL Ratio 2.52 % 06/12/21 23:42 TSH 2.150 mlU/mL (0.270-4.200) 06/12/21 23:42 Hepatitis A IgM Ab Non-reactive (NonReactive) 06/12/21 23:42 Hep Bs Antigen Non-reactive (Negative) 06/12/21 23:42 Hep B Core IgM Ab Non-reactive (NonReactive) 06/12/21 23:42 Hepatitis C Antibody Non-reactive (NonReactive) 06/12/21 23:42 Core Measure Documentation - Palliative Care Palliative Care/ Comfort Measures: Not Applicable - Core Measures Any of the following diagnoses?: none Exam - Constitutional Vitals: Temp Pulse Resp BP Pulse Ox 98.7 F 95 H 18 104/63 94 07/11/21 21:34 07/11/21 21:34 07/11/21 21:34 07/11/21 21:34 07/11/21 21:34 General appearance: Present: no acute distress - EENT Eyes: Present: PERRL, EOM intact ENT: hearing intact, clear oral mucosa - Neck Neck: Present: normal ROM - Respiratory Respiratory effort: normal Plan Activity: advance as tolerated Weight Bearing Status: Weight Bear as Tolerated Care Plan Goals: Maintain good and stable mental health Plan of Treatment: The patient should be compliant with medications, not to use drugs and not to drink alcohol.The patient understands that if suicidal ideas, homicidal ideas, or any endangering thoughts/behavior arise, they should immediately seek for emergent assistance including but not limited to crisis hot line and emergency room. Follow up with outpatient Psychiatrist and PCP within 7 - 14 days of discharge. Assessment: Dementia with Behavioral Disturbance Follow up with: PRIMARY CARE,MD [Primary Care Provider] - 7 Days Prescriptions: QUEtiapine [SEROquel] 300 mg PO QHS #30 tablet VALPROIC ACID Liq [DepaKENE Liq] 250 mg PO TID #1 bottle clonazePAM [KlonoPIN] 0.5 mg PO BID #60 tablet Mirtazapine [Remeron] 15 mg PO HS #30 QUEtiapine [SEROquel] 200 mg PO DAILY #30 tablet
[2021-07-12] MEDS: VALPROIC ACID 250 MG/5 ML ORAL LIQD PO SCH (09:44)
[2021-07-12] MEDS: ASPIRIN EC 81 MG TAB PO SCH (09:45)
[2021-07-12] MEDS: QUEtiapine 200 MG TAB PO SCH (09:45)
[2021-07-12] MEDS: MEMANTINE 5 MG TAB PO SCH (09:45)
[2021-07-12] MEDS: CHOLECALCIFEROL (VIT D3) 1000 UNIT (25 mcg) TAB PO SCH (09:45)
[2021-07-12] MEDS: clonazePAM 0.5 MG TAB PO SCH (09:45)
[2021-07-12] MEDS: CLOPIDOGREL 75 MG TAB PO SCH (09:45)
== END 2021-07-12 13:10 | disposition home or self-care (01) | DRG 884 ==
LOC: UNDOADMIN 17:45 → 3A 17:45 → 5A 22:32
PROVIDERS: ADMIT Psychiatry & Neurology Psychiatry; ATTEND Psychiatry & Neurology Psychiatry
DX: F01.51 Vascular dementia, unspecified severity, with behavioral disturbance (principal); I67.2 Cerebral atherosclerosis; I10 Essential (primary) hypertension; E78.2 Mixed hyperlipidemia; I25.10 Atherosclerotic heart disease of native coronary artery without angina pectoris; Z88.5 Allergy status to narcotic agent; E78.5 Hyperlipidemia, unspecified; Z95.1 Presence of aortocoronary bypass graft
CPT/HCPCS: 36415; 80053; 80061; 80074; 83036; 84443; 85025; G0378; J3486